=== PATIENT | male | born 1960 | race Caucasian/White ===

== ENCOUNTER 2018-09-01 15:01 | Outpatient (REF) | payer BC, SELFPAY ==
[2018-09-01 21:37] LABS: HCT 45.8 % (40.0-50.0); HGB 15.8 g/dL (13.5-17.5); Mean Corp. HGB Concentration 34.5 g/dL (32.0-36.0); Mean Corpuscular Hemoglobin 34.4 pg (27.0-33.0); Mean Corpuscular Volume 99.8 fL (80-95); Mean Platelet Volume 10.3 fL (8.0-11.0); Platelet Count 265 x1000/uL (130-400); RBC 4.59 m/cumm (4.50-6.00); RBC Distribution Width 12.2 % (11.8-14.1); White Blood Cell Count 7.69 k/cumm (4.4-10.8)
[2018-09-01 21:59] LABS: ALT 52 U/L (12-78); AST 28 U/L (15-37); Albumin 4.1 g/dL (3.4-5.0); Alkaline Phosphatase 104 U/L (46-116); Anion Gap 10.3 mmol/L (3-11); BUN 16 mg/dL (7-18); Bilirubin, Total 0.5 mg/dL (0.2-1.0); CO2 24.7 mmol/L (21.0-32.0); CREATININE 0.97 mg/dL (0.70-1.30); Calcium 9.1 mg/dL (8.5-10.1); Chloride 103 mmol/L (98-107); Cholesterol 206 mg/dL (50-200); Glucose 95 mg/dL (70-100); HDL Cholesterol 38 mg/dL (40-60); LDL CHOLESTEROL 139 mg/dL (<100); Potassium 4.3 mmol/L (3.5-5.1); Sodium 138 mmol/L (136-145); Total Protein 7.4 g/dL (6.4-8.2); Triglyceride 309 mg/dL (30-150)
[2018-09-01 22:13] LABS: Bilirubin, Direct 0.12 mg/dL (0.00-0.20)
[2018-09-06 08:47] LABS: PSA, Screening 0.5 ng/ml (0-4.5)
== END 2018-09-01 15:21 ==
LOC: NCHCN 15:01
PROVIDERS: PCP Internal Medicine; Visit Provider Nurse Practitioner Family
DX: I10 Essential (primary) hypertension (principal); Z00.00 Encounter for general adult medical examination without abnormal findings; Z12.5 Encounter for screening for malignant neoplasm of prostate
CPT/HCPCS: 80048; 80061; 80076; 83721; 84153; 85027

== ENCOUNTER 2018-09-29 08:55 | Outpatient (REF) | payer BC, SELFPAY ==
[2018-09-29 13:17] LABS: Cholesterol 187 mg/dL (50-200); HDL Cholesterol 36 mg/dL (40-60); LDL CHOLESTEROL 122 mg/dL (<100); Triglyceride 177 mg/dL (30-150)
[2018-09-30 10:08] LABS: Hepatitis C Ab w Rflx HCV PCR Negative (NEGAT)
== END 2018-09-29 09:15 ==
LOC: NCHCN 08:55
PROVIDERS: PCP Internal Medicine; Visit Provider Nurse Practitioner Family
DX: Z11.59 Encounter for screening for other viral diseases (principal); E66.9 Obesity, unspecified; Z68.30 Body mass index [BMI] 30.0-30.9, adult
CPT/HCPCS: 80061; 83721; 86803

== ENCOUNTER 2018-10-14 12:42 | Outpatient (REF) | payer BC, SELFPAY ==
[2018-10-14 21:20] LABS: Abs Immature Grans 0.02 k/cumm (0.0-0.09); Absolute Basophil Count 0.03 k/cumm (0.0-0.2); Absolute Eosinophil Count 0.23 k/cumm (0.0-0.7); Absolute Lymphocyte Count 1.29 k/cumm (1.2-3.4); Absolute Monocyte Count 0.69 k/cumm (0.11-0.7); Basophils % 0.4; Eosinophils % 3.2; HCT 48.2 % (40.0-50.0); HGB 16.4 g/dL (13.5-17.5); Immature Grans % 0.3; Lymphocytes % 17.8; Mean Corpuscular Hemoglobin 33.7 pg (27.0-33.0); Mean Corpuscular Volume 99.2 fL (80-95); Mean Platelet Volume 10.4 fL (8.0-11.0); Monocytes % 9.5; Neutrophils % 68.8; Platelet Count 285 x1000/uL (130-400); RBC 4.86 m/cumm (4.50-6.00); RBC Distribution Width 12.1 % (11.8-14.1); White Blood Cell Count 7.26 k/cumm (4.4-10.8)
[2018-10-14 21:35] LABS: ALT 40 U/L (12-78); AST 22 U/L (15-37); Albumin 3.8 g/dL (3.4-5.0); Alkaline Phosphatase 120 U/L (46-116); Anion Gap 13.9 mmol/L (3-11); BUN 14 mg/dL (7-18); Bilirubin, Total 0.9 mg/dL (0.2-1.0); CO2 23.1 mmol/L (21.0-32.0); CREATININE 1.06 mg/dL (0.70-1.30); Calcium 9.1 mg/dL (8.5-10.1); Chloride 99 mmol/L (98-107); Glucose 91 mg/dL (70-100); Potassium 4.5 mmol/L (3.5-5.1); Sodium 136 mmol/L (136-145); Total Protein 7.7 g/dL (6.4-8.2)
== END 2018-10-14 13:02 ==
LOC: NCHCN 12:42
PROVIDERS: PCP Internal Medicine; Visit Provider Nurse Practitioner
DX: R10.32 Left lower quadrant pain (principal)
CPT/HCPCS: 80053; 85025

== ENCOUNTER 2018-10-19 00:37 | Outpatient (CLI) | payer BC, SELFPAY ==
[2018-10-19] MEDS: Breeza Beverage 473 ML BTL PO ×2 (07:44→07:45)
[2018-10-19] MEDS: Omnipaque 350 MG/ML 50 ML BTL PO (07:45)
--- NOTE | 2018-10-19 09:35 | DI.CT_ITS ---
SYMPTOM/DIAGNOSIS: LLQ ABD PAIN, R10.32, ? DIVERTICULITIS ABDOMEN AND PELVIC CT: Comparison is made with 04/25/13. Images were performed from the lung bases through the ischial tuberosities after IV and oral contrast. There is prominent diverticulosis of the descending and sigmoid colon. There is a mild amount of stranding at the junction of the descending and sigmoid, consistent with mild uncomplicated diverticulitis. There is no evidence of abscess or perforation. There is no bowel dilatation. The heart size appears normal. The lung bases are clear. The liver shows fatty infiltration. The gallbladder, spleen, pancreas, kidneys, adrenals and urinary bladder are unremarkable. Prostate appears normal in size. There is a small amount of fat in both inguinal canals. The aorta is normal in diameter. Degenerative changes are seen in the spine. IMPRESSION: Mild uncomplicated diverticulitis at the junction of the descending and sigmoid colon.
[2018-10-19] MEDS: Omnipaque 350 MG/ML 100 ML BTL IJ (09:38)
== END 2018-10-19 00:57 ==
PROVIDERS: PCP Internal Medicine; Visit Provider Nurse Practitioner
DX: R10.32 Left lower quadrant pain (principal); K57.30 Diverticulosis of large intestine without perforation or abscess without bleeding; K57.32 Diverticulitis of large intestine without perforation or abscess without bleeding
CPT/HCPCS: 74177; J3490; Q9967

== ENCOUNTER 2018-12-18 12:50 | Inpatient (IN) | payer BC, SELFPAY ==
[2018-12-18] VITALS (7 sets, daily range): BP systolic 129–153; BP diastolic 78–91; PULSE 100–109; RESP 14–18; TEMP 36.4–37.1; O2SAT 93–97
--- NOTE | 2018-12-18 13:12 | W.ED.GENAD ---
Discharge Plan Disposition Condition: Improving Discharge Details Chief Complaint: Abd Prob Reason For Visit: DIVERTICULITIS WITH MICROPERFORATION Admit Date/Time: 12/18/18 14:36 Admit Provider: Brenda Perez Attending Provider: Brenda Perez Primary Care Provider: [facility] ED Provider: Stiven Lin Discharge Instructions Activity:: no lifting over 10#'s Equipment/Supplies:: No Equipment Needed Diet:: low fiber Discharge Orders Discharge Orders: Discharge Order (Routine); Ordered 12/26/18 Ordered By: Tete Lira Discharge Data Discharge Date/Time-TO BE ENTERED AT DEPARTURE: 12/18/18 15:45 Medical Decision Making 13:15 --58-year-old male with history of diverticulitis here with severe diffuse abdominal pain and tenderness with rebound tenderness after onset of left lower quadrant abdominal pain earlier today. Patient notes symptoms are similar to flare of diverticulitis in the past. Concern for acute surgical process. Consider acute diverticulitis and perforation. Plan to CT abd/pelv. -- CT interpreted by radiology: IMPRESSION: 1. Focal perforation: 2 collections of air anterior to the inflamed diverticula (4:67-68). 2. Diverticulosis and Bowel wall thickening along the rectosigmoid colon. Moderate pericolonic inflammatory changes. No evidence of abscess formation or bleeding. Findings consistent with acute diverticulitis. Will give IV abx. Labs reviewed. I called and spoke with Dr. Perez who will admit the patient. HPI General Mode of arrival: ambulatory. Date/Time Provider Initiated Documentation: 12/18/18 12:50. Limitations to Documentation: no limitations. Information obtained by: patient. HPI Narrative: 58-year-old male with history of diverticulitis presents with chief complaint of abdominal pain. Patient notes pain started this morning. Pain is now severe. Pain started in his left lower quadrant is now progressed to involve his entire abdomen. Pain is worse on palpation of his abdomen. He has associated nausea. No vomiting. He had a normal bowel movement this morning. No fevers. Related Data Home Medications Medication Instructions Recorded Confirmed Combivent 2 puff TID 04/25/13 12/18/18 [id number]-aejocajbrbclu-eesjlrfe 1 tab PRN PRN 04/25/13 08/12/13 [Migraine Formula] Flovent HFA 1 puff BID 08/12/13 12/18/18 lisinopril 10 mg PO DAILY 12/08/16 12/18/18 meloxicam 15 mg PO DAILY #30 MDD 1 12/09/16 12/18/18 tizanidine 2 mg PO .QHS PRN PRN #30 capsule 12/09/16 12/18/18 tizanidine [Zanaflex] 2 mg PO HS #30 12/09/16 12/18/18 atorvastatin 10 mg PO HS 12/18/18 12/18/18 amoxicillin-pot clavulanate 1 tab PO BID 5 Days #10 tab 12/26/18 [Augmentin] dicyclomine 20 mg PO QID PRN #30 tab 12/26/18 hydrocodone-acetaminophen 1 tab PO Q4H PRN PRN #15 tab 12/26/18 Previous Rx's Medication Instructions Recorded tizanidine 2 mg PO .QHS PRN PRN #30 capsule 12/09/16 amoxicillin-pot clavulanate 1 tab PO BID 5 Days #10 tab 12/26/18 [Augmentin] dicyclomine 20 mg PO QID PRN #30 tab 12/26/18 hydrocodone-acetaminophen 1 tab PO Q4H PRN PRN #15 tab 12/26/18 Allergies Allergy/AdvReac Type Severity Reaction Status Date / Time sulfabenzamide Allergy Intermediate Hives Unverified 12/18/18 12:53 Sulfa (Sulfonamide Allergy Unknown Unverified 12/18/18 12:53 Antibiotics) General Stated Complaint: Abd Prob ROCIO: 3 Review of Systems Review of Systems All systems reviewed & are unremarkable except as noted in HPI and below Gastrointestinal Reports nausea and Denies vomiting Genitourinary Denies dysuria [facility] Medical History Diverticulitis of large intestine with perforation (Acute) Diverticulosis (Chronic) Asthma Back pain COPD (chronic obstructive pulmonary disease) GERD (gastroesophageal reflux disease) Hypertension Migraine Migraine, chronic, without aura Obesity Polyp of colon 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 Exam Const General: cooperative and uncomfortable Nutritional Appearance: well nourished Orientation: alert HENMO Head: normocephalic Mouth: moist mucous membranes Eyes Conjunctivae: normal conjunctivae Sclera: normal sclerae Neck Neck: trachea midline and supple Resp Auscultation: clear to auscultation bilaterally, no rales, no rhonchi and no wheezes Cardio Jugular venous pressure: no JVD Rate: regular rate and not tachycardic Rhythm: regular rhythm GI Palpation: soft, not firm, no guarding, no masses, not rigid and tender with rebound tenderness and other (diffuse) Auscultation: normal bowel sounds Skin General skin exam: no rashes or lesions noted Neuro General: alert, awake and tone normal Extrem General: no edema Psych Appearance: grossly normal Mental Status: mental status grossly normal Speech and Movement: speech and movement normal Course Vital Signs Temperature 36.4 C L 12/18/18 12:53 Pulse 109 H 12/18/18 12:53 Respiratory Rate 18 12/18/18 12:53 Blood Pressure 141/78 H 12/18/18 12:53 Pulse Oximetry 97 12/18/18 12:53 Temperature 36.4 C L 12/18/18 12:53 Temperature Source Temporal Artery Scan 12/18/18 12:53 Pulse 109 H 12/18/18 12:53 Respiratory Rate 18 12/18/18 12:53 Respiratory Effort 12/18/18 12:53 Blood Pressure 141/78 H 12/18/18 12:53 Blood Pressure Position Sitting 12/18/18 12:53 Pulse Oximetry 97 12/18/18 12:53 Oxygen Delivery Method Room Air 12/18/18 12:53 Oxygen Flow Rate 0 12/18/18 12:53
--- NOTE | 2018-12-18 13:18 | ED.GENADUL_ITS ---
Discharge Plan Disposition Condition: Improving Discharge Details Chief Complaint: Abd Prob Reason For Visit: DIVERTICULITIS WITH MICROPERFORATION Admit Date/Time: 12/18/18 14:36 Admit Provider: Brenda Perez Attending Provider: Brenda Perez Primary Care Provider: [facility] ED Provider: Stiven Lin Discharge Instructions Activity:: no lifting over 10#'s Equipment/Supplies:: No Equipment Needed Diet:: low fiber Discharge Orders Discharge Orders: Discharge Order (Routine); Ordered 12/26/18 Ordered By: Tete Lira Discharge Data Discharge Date/Time-TO BE ENTERED AT DEPARTURE: 12/18/18 15:45 Medical Decision Making 13:15 --58-year-old male with history of diverticulitis here with severe diffuse abdominal pain and tenderness with rebound tenderness after onset of left lower quadrant abdominal pain earlier today. Patient notes symptoms are similar to flare of diverticulitis in the past. Concern for acute surgical process. Consider acute diverticulitis and perforation. Plan to CT abd/pelv. -- CT interpreted by radiology: IMPRESSION: 1. Focal perforation: 2 collections of air anterior to the inflamed diverticula (4:67-68). 2. Diverticulosis and Bowel wall thickening along the rectosigmoid colon. Moderate pericolonic inflammatory changes. No evidence of abscess formation or bleeding. Findings consistent with acute diverticulitis. Will give IV abx. Labs reviewed. I called and spoke with Dr. Perez who will admit the patient. HPI General Mode of arrival: ambulatory . Date/Time Provider Initiated Documentation: 12/18/18 12:50 . Limitations to Documentation: no limitations . Information obtained by: patient . HPI Narrative: 58-year-old male with history of diverticulitis presents with chief complaint of abdominal pain. Patient notes pain started this morning. Pain is now severe. Pain started in his left lower quadrant is now progressed to involve his entire abdomen. Pain is worse on palpation of his abdomen. He has associated nausea. No vomiting. He had a normal bowel movement this morning. No fevers. Related Data Home Medications Medication Instructions Recorded Confirmed Combivent 2 puff TID 04/25/13 12/18/18 [id number]-dbvyxibhkiclh-lnhnwedl 1 tab PRN PRN 04/25/13 08/12/13 [Migraine Formula] Flovent HFA 1 puff BID 08/12/13 12/18/18 lisinopril 10 mg PO DAILY 12/08/16 12/18/18 meloxicam 15 mg PO DAILY #30 MDD 1 12/09/16 12/18/18 tizanidine 2 mg PO .QHS PRN PRN #30 capsule 12/09/16 12/18/18 tizanidine [Zanaflex] 2 mg PO HS #30 12/09/16 12/18/18 atorvastatin 10 mg PO HS 12/18/18 12/18/18 amoxicillin-pot clavulanate 1 tab PO BID 5 Days #10 tab 12/26/18 [Augmentin] dicyclomine 20 mg PO QID PRN #30 tab 12/26/18 hydrocodone-acetaminophen 1 tab PO Q4H PRN PRN #15 tab 12/26/18 Previous Rx's Medication Instructions Recorded tizanidine 2 mg PO .QHS PRN PRN #30 capsule 12/09/16 amoxicillin-pot clavulanate 1 tab PO BID 5 Days #10 tab 12/26/18 [Augmentin] dicyclomine 20 mg PO QID PRN #30 tab 12/26/18 hydrocodone-acetaminophen 1 tab PO Q4H PRN PRN #15 tab 12/26/18 Allergies Allergy/AdvReac Type Severity Reaction Status Date / Time sulfabenzamide Allergy Intermediate Hives Unverified 12/18/18 12:53 Sulfa (Sulfonamide Allergy Unknown Unverified 12/18/18 12:53 Antibiotics) General Stated Complaint: Abd Prob ROCIO: 3 Review of Systems Review of Systems All systems reviewed & are unremarkable except as noted in HPI and below Gastrointestinal Reports nausea and Denies vomiting Genitourinary Denies dysuria [facility] History Diverticulitis of large intestine with perforation (Acute) Diverticulosis (Chronic) Asthma Back pain COPD (chronic obstructive pulmonary disease) GERD (gastroesophageal reflux disease) Hypertension Migraine Migraine, chronic, without aura Obesity Polyp of colon 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 Exam Const General: cooperative and uncomfortable Nutritional Appearance: well nourished Orientation: alert HENTX Head: normocephalic Mouth: moist mucous membranes Eyes Conjunctivae: normal conjunctivae Sclera: normal sclerae Neck Neck: trachea midline and supple Resp Auscultation: clear to auscultation bilaterally, no rales, no rhonchi and no wheezes Cardio Jugular venous pressure: no JVD Rate: regular rate and not tachycardic Rhythm: regular rhythm GI Palpation: soft, not firm, no guarding, no masses, not rigid and tender with rebound tenderness and other (diffuse) Auscultation: normal bowel sounds Skin General skin exam: no rashes or lesions noted Neuro General: alert, awake and tone normal Extrem General: no edema Psych Appearance: grossly normal Mental Status: mental status grossly normal Speech and Movement: speech and movement normal Course Vital Signs Temperature 36.4 C L 12/18/18 12:53 Pulse 109 H 12/18/18 12:53 Respiratory Rate 18 12/18/18 12:53 Blood Pressure 141/78 H 12/18/18 12:53 Pulse Oximetry 97 12/18/18 12:53 Temperature 36.4 C L 12/18/18 12:53 Temperature Source Temporal Artery Scan 12/18/18 12:53 Pulse 109 H 12/18/18 12:53 Respiratory Rate 18 12/18/18 12:53 Respiratory Effort 12/18/18 12:53 Blood Pressure 141/78 H 12/18/18 12:53 Blood Pressure Position Sitting 12/18/18 12:53 Pulse Oximetry 97 12/18/18 12:53 Oxygen Delivery Method Room Air 12/18/18 12:53 Oxygen Flow Rate 0 12/18/18 12:53
[2018-12-18 13:27] LABS: Lipase 91 U/L (73-393)
[2018-12-18] MEDS: HYDROmorphone 2 MG/ML VIAL 1 MG IVP (13:28)
[2018-12-18] MEDS: Lactated Ringers 1,000 ML 150 ML IV (13:28)
[2018-12-18 13:34] LABS: ALT 50 U/L (12-78); AST 26 U/L (15-37); Albumin 4.4 g/dL (3.4-5.0); Alkaline Phosphatase 123 U/L (46-116); Anion Gap 11.3 mmol/L (3-11); BUN 15 mg/dL (7-18); Bilirubin, Total 0.9 mg/dL (0.2-1.0); CO2 23.7 mmol/L (21.0-32.0); Calcium 9.1 mg/dL (8.5-10.1); Chloride 101 mmol/L (98-107); Glucose 117 mg/dL (70-100); Potassium 4.1 mmol/L (3.5-5.1); Sodium 136 mmol/L (136-145)
[2018-12-18 13:35] LABS: Abs Immature Grans 0.04 k/cumm (0.0-0.09); Absolute Basophil Count 0.02 k/cumm (0.0-0.2); Absolute Eosinophil Count 0.17 k/cumm (0.0-0.7); Absolute Lymphocyte Count 1.17 k/cumm (1.2-3.4); Basophils % 0.1; Eosinophils % 0.9; HCT 47.8 % (40.0-50.0); HGB 17.1 g/dL (13.5-17.5); Immature Grans % 0.2; Lymphocytes % 6.3; Mean Corp. HGB Concentration 35.8 g/dL (32.0-36.0); Mean Corpuscular Hemoglobin 35.1 pg (27.0-33.0); Mean Corpuscular Volume 98.2 fL (80-95); Monocytes % 6.3; Neutrophils % 86.2; Platelet Count 280 x1000/uL (130-400); RBC 4.87 m/cumm (4.50-6.00); RBC Distribution Width 12.4 % (11.8-14.1); White Blood Cell Count 18.56 k/cumm (4.4-10.8)
[2018-12-18 13:36] LABS: Absolute Monocyte Count 1.17 k/cumm (0.11-0.7)
[2018-12-18 13:37] LABS: Lactate 1.9 mmol/L (0.6-1.4)
[2018-12-18 13:39] LABS: Magnesium 2.1 mg/dL (1.8-2.4)
[2018-12-18] MEDS: Omnipaque 350 MG/ML 100 ML BTL IJ (13:44)
--- NOTE | 2018-12-18 13:48 | DI.CT_ITS ---
SYMPTOM/DIAGNOSIS: ABD PAIN, LLQ TO NOW DIFFUSE, REBOUND TENDERNESS ABDOMEN AND PELVIC CT: CT scan of the abdomen and pelvis was performed following the uneventful administration of intravenous contrast material. Comparison is made with 10/19/18. There are dependent opacities in the lung bases. This may represent atelectasis or pneumonia. There is diffuse decreased attenuation of the liver consistent with fatty infiltration. No suspicious hepatic mass is seen. The portal, superior mesenteric and splenic veins are patent. The gallbladder is negative. There is no biliary ductal dilation. The pancreas, spleen and adrenal glands are unremarkable. The kidneys show normal and symmetric enhancement. No evidence of a solid renal mass or obstruction. The urinary bladder is within normal limits. The reproductive organs are unremarkable. There is mild atherosclerosis of the abdominal aorta but no evidence of aneurysmal dilatation. No significant abdominal or pelvic adenopathy or ascites is present. There is diverticulosis of the colon. There is bowel wall thickening and pericolonic inflammatory change in the proximal sigmoid colon consistent with acute diverticulitis. There do appear to be foci of extraluminal air adjacent to the inflamed bowel consistent with perforation. The remainder of the bowel is unremarkable. There is a normal appendix present. No acute osseous abnormality is identified. Degenerative changes are seen in the spine. IMPRESSION: Findings consistent with acute diverticulitis involving the sigmoid colon. Foci of extraluminal air consistent with perforation. No evidence of abscess.
[2018-12-18] MEDS: MetroNIDAZOLE 500 MG/100 ML BAG 100 MG IVPB ×2 (14:14→22:59)
--- NOTE | 2018-12-18 14:14 | DI.VRAD_ITS ---
Addendum created by Kelsi Enriquez MD on 12/18/2018 2:14:36 PM EDT THIS REPORT CONTAINS FINDINGS THAT MAY BE CRITICAL TO PATIENT CARE. The findings were verbally communicated via telephone conference with Stiven Lin at 2:14 PM EDT on 12/18/2018. The findings were acknowledged and understood. Initial report created on 12/18/2018 2:14:05 PM EDT EXAM: CT Abdomen and Pelvis With Contrast EXAM DATE/TIME: 12/18/2018 1:14 PM CLINICAL HISTORY: 58 years old, male; Signs and symptoms; Other: Abdominal pain llq to now diffuse, rebound tender TECHNIQUE: Axial computed tomography images of the abdomen and pelvis with intravenous contrast. All CT scans at this facility use at least one of these dose optimization techniques: automated exposure control; mA and/or kV adjustment per patient size (includes targeted exams where dose is matched to clinical indication); or iterative reconstruction. Coronal and sagittal reformatted images were created and reviewed. CONTRAST: Contrast Material: 100 ml of Omnipaque 350; Contrast Route: IV COMPARISON: CT Abdomen^ROUTINE ABDOMEN PELVIS WITH CONTRAST (Adult) 10/19/2018 9:14 AM FINDINGS: Lower thorax: Mild opacities in the lower lobes may represent atelectasis or pneumonia. Small hiatal hernia ABDOMEN: Liver: Normal. No mass. Gallbladder and bile ducts: Normal. No calcified stones. No ductal dilation. Pancreas: Normal. No ductal dilation. Spleen: Normal. No splenomegaly. Adrenals: Normal. No mass. Kidneys and ureters: Normal. No hydronephrosis. Stomach and bowel: Focal perforation: 2 collections of air anterior to the inflamed diverticula (4:67-68). Diverticulosis and Bowel wall thickening along the rectosigmoid colon. Moderate pericolonic inflammatory changes. No evidence of abscess formation or bleeding. Findings consistent with acute diverticulitis. Appendix: Normal appendix PELVIS: Bladder: Unremarkable as visualized. Reproductive: Unremarkable as visualized. ABDOMEN and PELVIS: Intraperitoneal space: Normal. No free air. No significant fluid collection. Bones/joints: No acute fracture. No dislocation. Soft tissues: Unremarkable. Vasculature: Normal. No abdominal aortic aneurysm. Lymph nodes: Normal. No enlarged lymph nodes. IMPRESSION: 1. Focal perforation: 2 collections of air anterior to the inflamed diverticula (4:67-68). 2. Diverticulosis and Bowel wall thickening along the rectosigmoid colon. Moderate pericolonic inflammatory changes. No evidence of abscess formation or bleeding. Findings consistent with acute diverticulitis. Dictated and Authenticated by: Kelsi Enriquez MD. Ordering:SHELLIE Saleem MD
--- NOTE | 2018-12-18 14:47 | W.PM.HP.N ---
Date of service: 12/18/18 Time of Service: 14:47 Assessment and Plan (1) Hypertension: Current visit: Yes Status: Chronic A\\ Well controlled at Home Hypertensive here today most likely due to pain P\\ Continue with po home medication with sip of water Control pain Qualifiers: Hypertension type: essential hypertension Qualified Code(s): I10 - Essential (primary) hypertension (2) Diverticulitis of large intestine with perforation: Current visit: Yes Status: Acute A\\ Diverticulitis of sigmoid colon with microperforation P\\ Bowel rest and antibiotics Discussed diagnoses with patient as well as small chance that non-surgical treatment may not work. If his pain worsens, WBC count increases or he develops fevers,chills and N/V then he may need emergency surgery with sigmoid collectomy and ostomy. Questions were entertained and answered to his satisfaction. He agrees with the plan. Qualifiers: Diverticulitis bleeding: without bleeding Qualified Code(s): K57.20 - Diverticulitis of large intestine with perforation and abscess without bleeding (3) Asthma: Current visit: No Status: Active A\\ Well controlled he has 3 inhalors at home but only uses them PRN P\\ Will order albuterol prn. If he needs anything else we will start him back on his home inhalers. History of Present Illness Chief Complaint: LLQ Abdominal pain Consults Consult date: 12/18/18 Requesting physician: Stiven Lin Narrative: Mr. Gamboa is a pleasant 58 year old male with a history of Diverticulitis. His last attack was about 3 months ago and he was treated as an outpatient. He comes in today because of acute worsening of LLQ abdominal pain. He tells me that he started noticing some mild LLQ pain around thursday of last week. He did not see his PCP. Today he was sitting on the toilet having a normal BM when his pain acutely got worse and would not subside so he came to the ER. pain on arrival was 10/10. He was given some dilauded and his pain came down to a 5/10. Labs work revealed a slightly elevated Lactate and an elevated WBC count. CT scan abdomen and pelvis revealed diverticulitis with microperforation. No abscess was identified. Patient denies any fevers or chills. He denies any chest pain. Review of Systems Constitutional Reports system reviewed and no additional complaints, except as docu Cardiovascular Reports system reviewed and no additional complaints, except as docu, Denies dyspnea and Denies dyspnea on exertion Respiratory Denies chest congestion, Denies cough, Denies dyspnea and Denies dyspnea on exertion Gastrointestinal Reports as per HPI Genitourinary Denies hematuria, Denies dysuria and Denies nocturia Musculoskeletal Reports back pain and Denies arthralgias Endocrine Denies cold intolerance, Denies heat intolerance and Denies polydipsia Hematologic/Lymphatic Denies easy bleeding and Denies easy bruising [facility] Medical History Diverticulitis of large intestine with perforation (Acute) Diverticulosis (Chronic) Asthma Back pain COPD (chronic obstructive pulmonary disease) GERD (gastroesophageal reflux disease) Hypertension Migraine Migraine, chronic, without aura Obesity Polyp of colon 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 Meds Home Medications Medication Instructions Recorded Confirmed Type Combivent 2 puff TID 04/25/13 12/18/18 History bnbizcc-wwmuwfsxdopzb-kxgdwujv 1 tab PRN PRN 04/25/13 08/12/13 History [Migraine Formula] ibuprofen 800 mg PRN PRN 04/25/13 12/18/18 History Flovent HFA 1 puff BID 08/12/13 12/18/18 History lisinopril 10 mg PO DAILY 12/08/16 12/18/18 History meloxicam 15 mg PO DAILY #30 MDD 1 12/09/16 12/18/18 History meloxicam 15 mg PO DAILY PRN #30 tablet 12/09/16 Rx tizanidine 2 mg PO .QHS PRN PRN #30 capsule 12/09/16 12/18/18 Rx tizanidine [Zanaflex] 2 mg PO HS #30 12/09/16 12/18/18 History Allergies Allergy/AdvReac Type Severity Reaction Status Date / Time sulfabenzamide Allergy Intermediate Hives Unverified 12/18/18 12:53 Sulfa (Sulfonamide Allergy Unknown Unverified 12/18/18 12:53 Antibiotics) Exam Const General: cooperative, healthy appearing, comfortable and no acute distress Orientation: alert and oriented x3 [facility] Head: normocephalic and atraumatic Resp Effort & Inspection: normal respiratory effort Auscultation: clear to auscultation bilaterally Cardio Rate: regular rate Rhythm: regular rhythm Heart Sounds: no gallops, no murmurs and no rubs GI Inspection: normal to inspection Palpation: soft, no hepatosplenomegaly and tender in the LLQ (Guarding, no rebound) and suprapubicly (guarding, no rebound) Auscultation: normal bowel sounds Rectal Exam: deferred Results Labs : 12/18/18 13:10 12/18/18 13:10 Laboratory Results - last 24 hr 12/18/18 12/18/18 12/18/18 13:10 13:10 13:10 WBC 18.56 H RBC 4.87 Hgb 17.1 Hct 47.8 MCV 98.2 H MCH 35.1 H MCHC 35.8 RDW 12.4 Plt Count 280 MPV 10.0 Immature Gran % 0.2 Neutrophils % 86.2 Lymphocytes % 6.3 Monocytes % 6.3 Eosinophils % 0.9 Basophils % 0.1 Absolute Neutrophils 16.00 H Absolute Lymphocytes 1.17 L Absolute Monocytes 1.17 H Absolute Eosinophils 0.17 Absolute Basophils 0.02 Sodium 136 Potassium 4.1 Chloride 101 Carbon Dioxide 23.7 Anion Gap 11.3 H BUN 15 Creatinine 1.00 Estimated GFR/1.73 m2 >= 60.00 Glucose 117 H Lactate Calcium 9.1 Magnesium Total Bilirubin 0.9 AST 26 ALT 50 Alkaline Phosphatase 123 H Total Protein 8.0 Albumin 4.4 Lipase 91 12/18/18 12/18/18 13:10 13:33 WBC RBC Hgb Hct MCV MCH MCHC RDW Plt Count MPV Immature Gran % Neutrophils % Lymphocytes % Monocytes % Eosinophils % Basophils % Absolute Neutrophils Absolute Lymphocytes Absolute Monocytes Absolute Eosinophils Absolute Basophils Sodium Potassium Chloride Carbon Dioxide Anion Gap BUN Creatinine Estimated GFR/1.73 m2 Glucose Lactate 1.9 H Calcium Magnesium 2.1 Total Bilirubin AST ALT Alkaline Phosphatase Total Protein Albumin Lipase Last Vital Signs Temp 97.5 F L 12/18/18 12:53 Pulse 109 H 12/18/18 12:53 Resp 18 12/18/18 12:53 BP 141/78 H 12/18/18 12:53 Pulse Ox 97 12/18/18 12:53
[2018-12-18] MEDS: CIPROFLOXACIN 400 MG/200 ML BAG 200 MG IVPB (15:00)
[2018-12-18] MEDS: DEXTROSE 5%-0.45% SALINE 1,000 ML 125 ML IV (16:43)
[2018-12-18 17:10] LABS: Bilirubin Negative (Negative); Blood Negative (Negative); Clarity Clear; Glucose Negative (Negative); Ketones 40 mg/dL (Negative); Leukocyte Esterase Negative (Negative); Nitrite Negative (Negative); Specific Gravity <= 1.005 (1.005-1.025); Urobilinogen 0.2 EU/dL (Up TO 0.2); pH 5.5 (5-8)
[2018-12-18] MEDS: Enoxaparin 40 MG/0.4 ML SYR SC (17:11)
[2018-12-18] MEDS: Ketorolac 15 MG/ML VIAL IVP (17:11)
[2018-12-18] MEDS: HYDROmorphone 2 MG/ML VIAL IVP ×2 (18:18→22:25)
[2018-12-18] MEDS: ACETAMINOPHEN 1,000 MG/100 ML BTL 400 MG IVPB (22:25)
[2018-12-19] VITALS (8 sets, daily range): BP systolic 117–151; BP diastolic 76–90; PULSE 85–98; RESP 14–20; TEMP 36.4–37.2; O2SAT 94–96
[2018-12-19] MEDS: DEXTROSE 5%-0.45% SALINE 1,000 ML 125 ML IV ×3 (01:09→19:26)
[2018-12-19] MEDS: CIPROFLOXACIN 400 MG/200 ML BAG 200 MG IVPB ×2 (01:48→13:23)
[2018-12-19] MEDS: Ketorolac 15 MG/ML VIAL IVP ×2 (04:58→13:26)
[2018-12-19] MEDS: MetroNIDAZOLE 500 MG/100 ML BAG 100 MG IVPB ×3 (06:00→21:49)
[2018-12-19 06:16] LABS: Anion Gap 10.6 mmol/L (3-11); BUN 14 mg/dL (7-18); CO2 23.4 mmol/L (21.0-32.0); CREATININE 0.98 mg/dL (0.70-1.30); Calcium 8.5 mg/dL (8.5-10.1); Chloride 100 mmol/L (98-107); Glucose 170 mg/dL (70-100); Potassium 3.7 mmol/L (3.5-5.1); Sodium 134 mmol/L (136-145)
[2018-12-19 06:28] LABS: Abs Immature Grans 0.04 k/cumm (0.0-0.09); Absolute Lymphocyte Count 0.54 k/cumm (1.2-3.4); Absolute Monocyte Count 0.53 k/cumm (0.11-0.7); Basophils % 0.1; Eosinophils % 0.1; HCT 40.5 % (40.0-50.0); Immature Grans % 0.2; Lymphocytes % 3.1; Mean Corp. HGB Concentration 34.6 g/dL (32.0-36.0); Mean Corpuscular Hemoglobin 34.7 pg (27.0-33.0); Mean Corpuscular Volume 100.5 fL (80-95); Mean Platelet Volume 9.7 fL (8.0-11.0); Neutrophils % 93.5; Platelet Count 193 x1000/uL (130-400); RBC 4.03 m/cumm (4.50-6.00); RBC Distribution Width 12.7 % (11.8-14.1); White Blood Cell Count 17.54 k/cumm (4.4-10.8)
[2018-12-19 06:29] LABS: Absolute Basophil Count 0.02 k/cumm (0.0-0.2); Absolute Eosinophil Count 0.02 k/cumm (0.0-0.7)
[2018-12-19] MEDS: Lisinopril 10 MG TAB PO (08:47)
[2018-12-19] MEDS: Pantoprazole 40 MG VIAL IVP (08:48)
[2018-12-19] MEDS: ACETAMINOPHEN 1,000 MG/100 ML BTL 400 MG IVPB ×2 (08:48→16:38)
[2018-12-19] MEDS: Normal Saline Flush 10 ML SYR IVP ×2 (08:48→13:27)
[2018-12-19] MEDS: HYDROmorphone 2 MG/ML VIAL IVP ×2 (08:48→17:57)
--- NOTE | 2018-12-19 09:01 | DI.RAD_ITS ---
SYMPTOM/DIAGNOSIS: ABD PAIN ACUTE ABDOMINAL SERIES: Comparison CT is 12/18/18. PA CHEST: Heart size and pulmonary vasculature are within normal limits. The lungs are clear and well expanded. No effusions or pneumothoraces are identified. The osseous structures are intact. IMPRESSION: No acute pulmonary process. FLAT AND UPRIGHT ABDOMEN: The bowel gas pattern is nonspecific. No evidence of obstruction. No pneumoperitoneum, organomegaly or bowel obstruction is seen. Degenerative changes are seen in the spine. IMPRESSION: No evidence of an acute abdomen. No free air is seen beneath the hemidiaphragms.
--- NOTE | 2018-12-19 09:18 | PGE_ITS ---
Date of Service Date of service: 12/19/18 Time of Service: 09:18 Assessment and Plan (1) Diverticulitis of large intestine with perforation: Current visit: Yes Status: Acute A\\ Development of Nausea and dry heaves XRAY- no free air WBC count slightly decreased- no bands P\\ Continue with supportive care Monitor closely Zofran for nausea Qualifiers: Diverticulitis bleeding: without bleeding Qualified Code(s): K57.20 - Diverticulitis of large intestine with perforation and abscess without bleeding Subjective Interval history since last seen: Had some dry heaves and nausea starting last night. Pain is about the same. Not passing any flatus. Pain is controlled on medications, Exam Resp Effort & Inspection: normal respiratory effort Auscultation: clear to auscultation bilaterally Cardio Rate: regular rate Rhythm: regular rhythm Heart Sounds: no gallops, no murmurs and no rubs GI Inspection: normal to inspection Palpation: soft, no hepatosplenomegaly and tender in the LLQ (tender to palpation and volunatry guarding. No rebound) and suprapubicly (vountairy gurading, no rebound) Auscultation: absent bowel sounds Objective Objective Clinical Data: Abnormal lab results 12/18/18 12/18/18 12/18/18 Range/Units 13:10 13:10 13:33 WBC 18.56 H (4.4-10.8) k/cumm RBC (4.50-6.00) m/cumm MCV 98.2 H (80-95) fL MCH 35.1 H (27.0-33.0) pg Absolute Neutrophils 16.00 H (1.2-6.7) k/cumm Absolute Lymphocytes 1.17 L (1.2-3.4) k/cumm Absolute Monocytes 1.17 H (0.11-0.7) k/cumm Sodium (136-145) mmol/L Anion Gap 11.3 H (3-11) mmol/L Glucose 117 H (70-100) mg/dL Lactate 1.9 H (0.6-1.4) mmol/L Alkaline Phosphatase 123 H (46-116) U/L Urine Ketones (Negative) mg/dL 12/18/18 12/19/18 12/19/18 Range/Units 16:45 05:53 05:53 WBC 17.54 H (4.4-10.8) k/cumm RBC 4.03 L (4.50-6.00) m/cumm MCV 100.5 H (80-95) fL MCH 34.7 H (27.0-33.0) pg Absolute Neutrophils 16.40 H (1.2-6.7) k/cumm Absolute Lymphocytes 0.54 L (1.2-3.4) k/cumm Absolute Monocytes (0.11-0.7) k/cumm Sodium 134 L (136-145) mmol/L Anion Gap (3-11) mmol/L Glucose 170 H (70-100) mg/dL Lactate (0.6-1.4) mmol/L Alkaline Phosphatase (46-116) U/L Urine Ketones 40 H (Negative) mg/dL Vital Signs Temperature 98.6 F 12/19/18 08:39 Temperature Source Tympanic 12/19/18 08:39 Pulse 95 H 12/19/18 08:39 Pulse Rhythm Regular 12/19/18 03:08 Respiratory Rate 20 12/19/18 08:39 Respiratory Effort Non-Labored 12/19/18 03:08 Respiratory Depth Normal 12/19/18 03:08 Respiratory Pattern Normal 12/19/18 03:08 Blood Pressure 151/90 H 12/19/18 08:39 Blood Pressure Position Sitting 12/18/18 12:53 Pulse Oximetry 94 L 12/19/18 08:42 Oxygen Delivery Method Room Air 12/19/18 08:42 Oxygen Flow Rate 0 12/19/18 08:42 Pain Level 7 12/19/18 08:48 Intake & Output 12/18/18 12/18/18 12/19/18 11:59 23:59 11:59 Intake Total 661.25 / 661.25 1218.75 / 1218.75 Output Total 300 / 300 Balance 361.25 / 361.25 1218.75 / 1218.75 Weight 199 lb 15.983 oz 202 lb 2.622 oz Intake: IV 661.25 / 661.25 1218.75 / 1218.75 Output: Urine 300 / 300 Other: Urine Color Light Sharon Urine Appearance Clear Clear Urine Odor None Comment voided in toilet, flushed Voiding Methods Toilet Laboratory Results WBC 17.54 k/cumm (4.4-10.8) H 12/19/18 05:53 RBC 4.03 m/cumm (4.50-6.00) L 12/19/18 05:53 Hgb 14.0 g/dL (13.5-17.5) D 12/19/18 05:53 Hct 40.5 % (40.0-50.0) 12/19/18 05:53 MCV 100.5 fL (80-95) H 12/19/18 05:53 MCH 34.7 pg (27.0-33.0) H 12/19/18 05:53 MCHC 34.6 g/dL (32.0-36.0) 12/19/18 05:53 RDW 12.7 % (11.8-14.1) 12/19/18 05:53 Plt Count 193 x1000/uL (130-400) 12/19/18 05:53 MPV 9.7 fL (8.0-11.0) 12/19/18 05:53 Immature Gran % 0.2 12/19/18 05:53 Neutrophils % 93.5 12/19/18 05:53 Lymphocytes % 3.1 12/19/18 05:53 Monocytes % 3.0 12/19/18 05:53 Eosinophils % 0.1 12/19/18 05:53 Basophils % 0.1 12/19/18 05:53 Absolute Neutrophils 16.40 k/cumm (1.2-6.7) H 12/19/18 05:53 Absolute Lymphocytes 0.54 k/cumm (1.2-3.4) L 12/19/18 05:53 Absolute Monocytes 0.53 k/cumm (0.11-0.7) 12/19/18 05:53 Absolute Eosinophils 0.02 k/cumm (0.0-0.7) 12/19/18 05:53 Absolute Basophils 0.02 k/cumm (0.0-0.2) 12/19/18 05:53 Sodium 134 mmol/L (136-145) L 12/19/18 05:53 Potassium 3.7 mmol/L (3.5-5.1) 12/19/18 05:53 Chloride 100 mmol/L (98-107) 12/19/18 05:53 Carbon Dioxide 23.4 mmol/L (21.0-32.0) 12/19/18 05:53 Anion Gap 10.6 mmol/L (3-11) 12/19/18 05:53 BUN 14 mg/dL (7-18) 12/19/18 05:53 Creatinine 0.98 mg/dL (0.70-1.30) 12/19/18 05:53 Estimated GFR/1.73 m2 >= 60.00 (mL/min/1.73m2) 12/19/18 05:53 Glucose 170 mg/dL (70-100) H 12/19/18 05:53 Lactate 1.9 mmol/L (0.6-1.4) H 12/18/18 13:33 Calcium 8.5 mg/dL (8.5-10.1) 12/19/18 05:53 Magnesium 2.1 mg/dL (1.8-2.4) 12/18/18 13:10 Total Bilirubin 0.9 mg/dL (0.2-1.0) 12/18/18 13:10 AST 26 U/L (15-37) 12/18/18 13:10 ALT 50 U/L (12-78) 12/18/18 13:10 Alkaline Phosphatase 123 U/L (46-116) H 12/18/18 13:10 Total Protein 8.0 g/dL (6.4-8.2) 12/18/18 13:10 Albumin 4.4 g/dL (3.4-5.0) 12/18/18 13:10 Lipase 91 U/L (73-393) 12/18/18 13:10 Urine Color Yellow (Yellow) 12/18/18 16:45 Urine Clarity Clear 12/18/18 16:45 Urine pH 5.5 (5-8) 12/18/18 16:45 Ur Specific [place] <= 1.005 (1.005-1.025) 12/18/18 16:45 Urine Protein Negative mg/dL (Negative) 12/18/18 16:45 Urine Ketones 40 mg/dL (Negative) H 12/18/18 16:45 Urine Blood Negative (Negative) 12/18/18 16:45 Urine Nitrite Negative (Negative) 12/18/18 16:45 Urine Bilirubin Negative (Negative) 12/18/18 16:45 Urine Urobilinogen 0.2 EU/dL (Up TO 0.2) 12/18/18 16:45 Ur Leukocyte Esterase Negative (Negative) 12/18/18 16:45 Urine Glucose Negative mg/dL (Negative) 12/18/18 16:45
[2018-12-19] MEDS: Ondansetron 4 MG/2 ML VIAL IVP ×3 (09:32→17:58)
--- NOTE | 2018-12-19 09:35 | DI.VRAD_ITS ---
EXAM: XR Abdomen 2 Views with XR Chest 1 View EXAM DATE/TIME: 12/19/2018 9:03 AM CLINICAL HISTORY: 58 years old, male; Pain; Abdominal pain; Generalized TECHNIQUE: XR of the abdomen (2 views) with XR chest (1 view). COMPARISON: CT ABDOMEN PELVIS W 12/18/2018 1:42 PM FINDINGS: Lungs: Normal. No consolidation. Pleural space: Normal. No pneumothorax. Heart/Mediastinum: Normal. No cardiomegaly. Gastrointestinal tract: Normal. No bowel dilation. Intraperitoneal space: Normal. No free air. Bones/joints: Degenerative changes of aging within the thoracic and lumbar spine. No acute fracture. Soft tissues: Normal. IMPRESSION: No acute findings. Dictated and Authenticated by: Dg Jacobs MD. Ordering:JAVIER Gutierrez MD
[2018-12-19] MEDS: Enoxaparin 40 MG/0.4 ML SYR SC (15:52)
--- NOTE | 2018-12-19 16:07 | PDOC.CMIN ---
Care Management Initial Assess REASON FOR HOSPITALIZATION:: Diverticulitis with microperforation PAST MEDICAL HISTORY/PAST SURGICAL HISTORY:: Medical: Diverticulitis of large intestine with perforation (Acute), Diverticulosis (Chronic), Asthma, Back pain, COPD (chronic obstructive pulmonary disease), GERD (gastroesophageal reflux disease), Hypertension,. 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 Surgical: Hydrocelectomy; Repair, Tendon or Muscle PREVIOUS FUNCTIONAL STATUS/SOCIAL/FAMILY SUPPORTS:: Lives with his , Sydnee, at their home in [facility] [place]. Independent at baseline. He is he primary caregiver for his and she is completely dependent uponhim. Her brother is staying at the house for a few days to help while Berny is in the hospital. CURRENT FUNCTIONAL STATUS:: Lying in be and states he is still in pain and can only have ice chips. Concerned that if this hospital stay is more hthan a few days he will need help getting caregivers for his . ADVANCE DIRECTIVES:: None on file Has patient been provided with information about the portal?: No Did the patient sign up for the portal?: No CODE STATUS:: Full Code INSURANCE COVERAGE / FINANCIAL ISSUES:: BC/BS CURRENT HOME/COMMUNITY SERVICES/EQUIPMENT:: None at this time PRIMARY CARE PHYSICIAN:: [facility]: Darrell Madera MD POTENTIAL DISCHARGE NEEDS:: Caregivers to assist with his PATIENT/FAMILY EDUCATION NEEDS:: Discharge instructions ANTICIPATED BARRIERS TO DISCHARGE:: None identified TRANSPORTATION:: Family PLAN:: Berny will return home when medically cleared for discharge. No services needed for him but he may need assistance in caring for his . Family will transport.
--- NOTE | 2018-12-19 16:42 | PGE_ITS ---
Date of Service Date of service: 12/19/18 Time of Service: 16:39 Assessment and Plan (1) Diverticulitis of large intestine with perforation: Current visit: Yes Status: Acute A\\ Diverticulitis with microperforation. No abscess Pain is better then this morning P\\ Continue current treatment. Watch for worsening pain Qualifiers: Diverticulitis bleeding: without bleeding Qualified Code(s): K57.20 - Diverticulitis of large intestine with perforation and abscess without bleeding (2) Hypertension: Current visit: Yes Status: Chronic A\\ On his home medication Spikes of Hypertension most likely due to pain P\\ Continue to monitor Qualifiers: Hypertension type: essential hypertension Qualified Code(s): I10 - Essential (primary) hypertension Subjective Interval history since last seen: Feeling a little better. Passing flatus now. Abdominal pain maybe a little better as well. Nausea is also subsiding Exam GI Palpation: soft and tender in the LLQ (less tender then this am. No guarding) and suprapubicly (less tender then this morning. No guarding) Auscultation: hypoactive bowel sounds Objective Objective Clinical Data: Abnormal lab results 12/18/18 12/19/18 12/19/18 Range/Units 16:45 05:53 05:53 WBC 17.54 H (4.4-10.8) k/cumm RBC 4.03 L (4.50-6.00) m/cumm MCV 100.5 H (80-95) fL MCH 34.7 H (27.0-33.0) pg Absolute Neutrophils 16.40 H (1.2-6.7) k/cumm Absolute Lymphocytes 0.54 L (1.2-3.4) k/cumm Sodium 134 L (136-145) mmol/L Glucose 170 H (70-100) mg/dL Urine Ketones 40 H (Negative) mg/dL Vital Signs Temperature 98.2 F 12/19/18 16:10 Temperature Source Tympanic 12/19/18 16:10 Pulse 89 12/19/18 16:10 Pulse Rhythm Regular 12/19/18 09:32 Respiratory Rate 18 12/19/18 16:10 Respiratory Effort Non-Labored 12/19/18 09:32 Respiratory Depth Normal 12/19/18 09:32 Respiratory Pattern Normal 12/19/18 09:32 Blood Pressure 147/82 H 12/19/18 16:10 Blood Pressure Position Sitting 12/18/18 12:53 Pulse Oximetry 96 12/19/18 16:10 Oxygen Delivery Method Room Air 12/19/18 16:10 Oxygen Flow Rate 0 12/19/18 16:10 Pain Level 4 12/19/18 13:26 Comment 12/19/18 11:28 Intake & Output 12/18/18 12/19/18 12/19/18 23:59 11:59 23:59 Intake Total 661.25 / 661.25 2418.75 / 2418.75 Output Total 300 / 300 100 / 700 600 / 700 Balance 361.25 / 361.25 2318.75 / 1718.75 -600 / 1718.75 Weight 199 lb 15.983 oz 202 lb 2.622 oz Intake: IV 661.25 / 661.25 2418.75 / 2418.75 Output: Urine 300 / 300 600 / 600 Emesis 100 / 100 Other: Urine Color Light Sharon Light Sharon Urine Appearance Clear Clear Urine Odor None Normal Comment voided in toilet, flushed Emesis Description Bile Voiding Methods Toilet Laboratory Results WBC 17.54 k/cumm (4.4-10.8) H 12/19/18 05:53 RBC 4.03 m/cumm (4.50-6.00) L 12/19/18 05:53 Hgb 14.0 g/dL (13.5-17.5) D 12/19/18 05:53 Hct 40.5 % (40.0-50.0) 12/19/18 05:53 MCV 100.5 fL (80-95) H 12/19/18 05:53 MCH 34.7 pg (27.0-33.0) H 12/19/18 05:53 MCHC 34.6 g/dL (32.0-36.0) 12/19/18 05:53 RDW 12.7 % (11.8-14.1) 12/19/18 05:53 Plt Count 193 x1000/uL (130-400) 12/19/18 05:53 MPV 9.7 fL (8.0-11.0) 12/19/18 05:53 Immature Gran % 0.2 12/19/18 05:53 Neutrophils % 93.5 12/19/18 05:53 Lymphocytes % 3.1 12/19/18 05:53 Monocytes % 3.0 12/19/18 05:53 Eosinophils % 0.1 12/19/18 05:53 Basophils % 0.1 12/19/18 05:53 Absolute Neutrophils 16.40 k/cumm (1.2-6.7) H 12/19/18 05:53 Absolute Lymphocytes 0.54 k/cumm (1.2-3.4) L 12/19/18 05:53 Absolute Monocytes 0.53 k/cumm (0.11-0.7) 12/19/18 05:53 Absolute Eosinophils 0.02 k/cumm (0.0-0.7) 12/19/18 05:53 Absolute Basophils 0.02 k/cumm (0.0-0.2) 12/19/18 05:53 Sodium 134 mmol/L (136-145) L 12/19/18 05:53 Potassium 3.7 mmol/L (3.5-5.1) 12/19/18 05:53 Chloride 100 mmol/L (98-107) 12/19/18 05:53 Carbon Dioxide 23.4 mmol/L (21.0-32.0) 12/19/18 05:53 Anion Gap 10.6 mmol/L (3-11) 12/19/18 05:53 BUN 14 mg/dL (7-18) 12/19/18 05:53 Creatinine 0.98 mg/dL (0.70-1.30) 12/19/18 05:53 Estimated GFR/1.73 m2 >= 60.00 (mL/min/1.73m2) 12/19/18 05:53 Glucose 170 mg/dL (70-100) H 12/19/18 05:53 Lactate 1.9 mmol/L (0.6-1.4) H 12/18/18 13:33 Calcium 8.5 mg/dL (8.5-10.1) 12/19/18 05:53 Magnesium 2.1 mg/dL (1.8-2.4) 12/18/18 13:10 Total Bilirubin 0.9 mg/dL (0.2-1.0) 12/18/18 13:10 AST 26 U/L (15-37) 12/18/18 13:10 ALT 50 U/L (12-78) 12/18/18 13:10 Alkaline Phosphatase 123 U/L (46-116) H 12/18/18 13:10 Total Protein 8.0 g/dL (6.4-8.2) 12/18/18 13:10 Albumin 4.4 g/dL (3.4-5.0) 12/18/18 13:10 Lipase 91 U/L (73-393) 12/18/18 13:10 Urine Color Yellow (Yellow) 12/18/18 16:45 Urine Clarity Clear 12/18/18 16:45 Urine pH 5.5 (5-8) 12/18/18 16:45 Ur Specific [place] <= 1.005 (1.005-1.025) 12/18/18 16:45 Urine Protein Negative mg/dL (Negative) 12/18/18 16:45 Urine Ketones 40 mg/dL (Negative) H 12/18/18 16:45 Urine Blood Negative (Negative) 12/18/18 16:45 Urine Nitrite Negative (Negative) 12/18/18 16:45 Urine Bilirubin Negative (Negative) 12/18/18 16:45 Urine Urobilinogen 0.2 EU/dL (Up TO 0.2) 12/18/18 16:45 Ur Leukocyte Esterase Negative (Negative) 12/18/18 16:45 Urine Glucose Negative mg/dL (Negative) 12/18/18 16:45
[2018-12-19] MEDS: Mometasone 220 MCG 14 DOSE INHALER IH (19:20)
[2018-12-19] MEDS: Atorvastatin 10 MG TAB PO (21:48)
[2018-12-20] VITALS (9 sets, daily range): BP systolic 129–155; BP diastolic 75–84; PULSE 72–107; RESP 16–20; TEMP 36.4–37.9; O2SAT 94–96
[2018-12-20] MEDS: Normal Saline Flush 10 ML SYR IVP ×4 (00:49→13:40)
[2018-12-20] MEDS: Ondansetron 4 MG/2 ML VIAL IVP ×3 (00:50→19:39)
[2018-12-20] MEDS: HYDROmorphone 2 MG/ML VIAL IVP (00:54)
[2018-12-20] MEDS: CIPROFLOXACIN 400 MG/200 ML BAG 200 MG IVPB ×2 (01:19→14:32)
[2018-12-20] MEDS: DEXTROSE 5%-0.45% SALINE 1,000 ML 125 ML IV ×2 (05:40→16:29)
[2018-12-20] MEDS: MetroNIDAZOLE 500 MG/100 ML BAG 100 MG IVPB ×3 (05:42→21:48)
[2018-12-20] MEDS: Normal Saline 500 ML 30 ML IV (06:42)
[2018-12-20] MEDS: Ketorolac 15 MG/ML VIAL IVP ×3 (06:45→19:40)
[2018-12-20 07:17] LABS: Abs Immature Grans 0.03 k/cumm (0.0-0.09); Absolute Basophil Count 0.01 k/cumm (0.0-0.2); Absolute Lymphocyte Count 0.28 k/cumm (1.2-3.4); Basophils % 0.1; Eosinophils % 0.2; HCT 39.4 % (40.0-50.0); HGB 13.2 g/dL (13.5-17.5); Immature Grans % 0.2; Lymphocytes % 2.2; Mean Corp. HGB Concentration 33.5 g/dL (32.0-36.0); Mean Corpuscular Hemoglobin 34.1 pg (27.0-33.0); Mean Corpuscular Volume 101.8 fL (80-95); Mean Platelet Volume 9.9 fL (8.0-11.0); Monocytes % 4.9; Neutrophils % 92.4; Platelet Count 182 x1000/uL (130-400); RBC 3.87 m/cumm (4.50-6.00); RBC Distribution Width 12.6 % (11.8-14.1); White Blood Cell Count 12.77 k/cumm (4.4-10.8)
[2018-12-20 07:20] LABS: Absolute Eosinophil Count 0.03 k/cumm (0.0-0.7); Absolute Monocyte Count 0.63 k/cumm (0.11-0.7)
--- NOTE | 2018-12-20 07:27 | W.PM.PROGNOT ---
Date of Service Date of service: 12/20/18 Time of Service: 07:27 Assessment and Plan (1) Hypertension: Current visit: Yes Status: Chronic Continue to have spikes in his BP correlating with spikes in pain P\\ Continue with home medication for BP and monitor Qualifiers: Hypertension type: essential hypertension Qualified Code(s): I10 - Essential (primary) hypertension (2) Diverticulitis of large intestine with perforation: Current visit: Yes Status: Acute A\\ Pain is decreaseing and bowel function is improving WBC count much improved today Still concerned due to nausea and diaphoresis this am P\\ Continue supportive care with IV fluids and IV antibiotics Serial abdominal exams Qualifiers: Diverticulitis bleeding: without bleeding Qualified Code(s): K57.20 - Diverticulitis of large intestine with perforation and abscess without bleeding Subjective Interval history since last seen: Mr. Gamboa is having nausea at times after getting the dilauded. He has had no emesis. He is diaphoretic this morning. No fevers over night. Pain seems better and he is passing flatus. Exam Resp Effort & Inspection: normal respiratory effort Auscultation: clear to auscultation bilaterally Cardio Rate: regular rate Rhythm: regular rhythm Heart Sounds: no gallops, no murmurs and no rubs GI Inspection: normal to inspection Palpation: soft and tender (RLQ pain- less the yesterday. No guarding. No suprapubic or LLQ pain today) Auscultation: normal bowel sounds Objective Objective Clinical Data: Abnormal lab results 12/20/18 Range/Units 06:38 WBC 12.77 H (4.4-10.8) k/cumm RBC 3.87 L (4.50-6.00) m/cumm Hgb 13.2 L (13.5-17.5) g/dL Hct 39.4 L (40.0-50.0) % MCV 101.8 H (80-95) fL MCH 34.1 H (27.0-33.0) pg Absolute Neutrophils 11.80 H (1.2-6.7) k/cumm Absolute Lymphocytes 0.28 L (1.2-3.4) k/cumm Vital Signs Temperature 99.3 F 12/20/18 07:03 Temperature Source Tympanic 12/20/18 07:03 Pulse 96 H 12/20/18 07:03 Pulse Rhythm Regular 12/20/18 00:32 Respiratory Rate 20 12/20/18 07:03 Respiratory Effort 12/20/18 00:32 Respiratory Depth Normal 12/20/18 00:32 Respiratory Pattern Normal 12/20/18 00:32 Blood Pressure 136/84 12/20/18 07:03 Blood Pressure Position Sitting 12/18/18 12:53 Pulse Oximetry 94 L 12/20/18 07:03 Oxygen Delivery Method Room Air 12/20/18 07:03 Oxygen Flow Rate 0 12/20/18 07:03 Pain Level 5 12/20/18 06:45 Comment 12/19/18 11:28 Intake & Output 12/19/18 12/19/18 12/20/18 11:59 23:59 11:59 Intake Total 2418.75 / 3818.75 1400 / 3818.75 1000 / 1000 Output Total 100 / 700 600 / 700 600 / 600 Balance 2318.75 / 3118.75 800 / 3118.75 400 / 400 Weight 202 lb 2.622 oz 206 lb 5.643 oz Intake: IV 2418.75 / 3818.75 1400 / 3818.75 1000 / 1000 Output: Urine 600 / 600 600 / 600 Emesis 100 / 100 Other: Urine Color Light Sharon Dark [place] Urine Appearance Clear Clear Clear Urine Odor Normal Comment voided in toilet, flushed Emesis Description Bile None Voiding Methods Toilet Laboratory Results WBC 12.77 k/cumm (4.4-10.8) H 12/20/18 06:38 RBC 3.87 m/cumm (4.50-6.00) L 12/20/18 06:38 Hgb 13.2 g/dL (13.5-17.5) L 12/20/18 06:38 Hct 39.4 % (40.0-50.0) L 12/20/18 06:38 MCV 101.8 fL (80-95) H 12/20/18 06:38 MCH 34.1 pg (27.0-33.0) H 12/20/18 06:38 MCHC 33.5 g/dL (32.0-36.0) 12/20/18 06:38 RDW 12.6 % (11.8-14.1) 12/20/18 06:38 Plt Count 182 x1000/uL (130-400) 12/20/18 06:38 MPV 9.9 fL (8.0-11.0) 12/20/18 06:38 Immature Gran % 0.2 12/20/18 06:38 Neutrophils % 92.4 12/20/18 06:38 Lymphocytes % 2.2 12/20/18 06:38 Monocytes % 4.9 12/20/18 06:38 Eosinophils % 0.2 12/20/18 06:38 Basophils % 0.1 12/20/18 06:38 Absolute Neutrophils 11.80 k/cumm (1.2-6.7) H 12/20/18 06:38 Absolute Lymphocytes 0.28 k/cumm (1.2-3.4) L 12/20/18 06:38 Absolute Monocytes 0.63 k/cumm (0.11-0.7) 12/20/18 06:38 Absolute Eosinophils 0.03 k/cumm (0.0-0.7) 12/20/18 06:38 Absolute Basophils 0.01 k/cumm (0.0-0.2) 12/20/18 06:38 Sodium 134 mmol/L (136-145) L 12/19/18 05:53 Potassium 3.7 mmol/L (3.5-5.1) 12/19/18 05:53 Chloride 100 mmol/L (98-107) 12/19/18 05:53 Carbon Dioxide 23.4 mmol/L (21.0-32.0) 12/19/18 05:53 Anion Gap 10.6 mmol/L (3-11) 12/19/18 05:53 BUN 14 mg/dL (7-18) 12/19/18 05:53 Creatinine 0.98 mg/dL (0.70-1.30) 12/19/18 05:53 Estimated GFR/1.73 m2 >= 60.00 (mL/min/1.73m2) 12/19/18 05:53 Glucose 170 mg/dL (70-100) H 12/19/18 05:53 Lactate 1.9 mmol/L (0.6-1.4) H 12/18/18 13:33 Calcium 8.5 mg/dL (8.5-10.1) 12/19/18 05:53 Magnesium 2.1 mg/dL (1.8-2.4) 12/18/18 13:10 Total Bilirubin 0.9 mg/dL (0.2-1.0) 12/18/18 13:10 AST 26 U/L (15-37) 12/18/18 13:10 ALT 50 U/L (12-78) 12/18/18 13:10 Alkaline Phosphatase 123 U/L (46-116) H 12/18/18 13:10 Total Protein 8.0 g/dL (6.4-8.2) 12/18/18 13:10 Albumin 4.4 g/dL (3.4-5.0) 12/18/18 13:10 Lipase 91 U/L (73-393) 12/18/18 13:10 Urine Color Yellow (Yellow) 12/18/18 16:45 Urine Clarity Clear 12/18/18 16:45 Urine pH 5.5 (5-8) 12/18/18 16:45 Ur Specific [place] <= 1.005 (1.005-1.025) 12/18/18 16:45 Urine Protein Negative mg/dL (Negative) 12/18/18 16:45 Urine Ketones 40 mg/dL (Negative) H 12/18/18 16:45 Urine Blood Negative (Negative) 12/18/18 16:45 Urine Nitrite Negative (Negative) 12/18/18 16:45 Urine Bilirubin Negative (Negative) 12/18/18 16:45 Urine Urobilinogen 0.2 EU/dL (Up TO 0.2) 12/18/18 16:45 Ur Leukocyte Esterase Negative (Negative) 12/18/18 16:45 Urine Glucose Negative mg/dL (Negative) 12/18/18 16:45
[2018-12-20] MEDS: Lisinopril 10 MG TAB PO (07:33)
[2018-12-20] MEDS: Pantoprazole 40 MG VIAL IVP (07:33)
[2018-12-20 07:44] LABS: Anion Gap 8.8 mmol/L (3-11); BUN 11 mg/dL (7-18); CO2 23.2 mmol/L (21.0-32.0); CREATININE 0.96 mg/dL (0.70-1.30); Calcium 8.4 mg/dL (8.5-10.1); Chloride 102 mmol/L (98-107); Glucose 141 mg/dL (70-100); Potassium 3.7 mmol/L (3.5-5.1); Sodium 134 mmol/L (136-145)
[2018-12-20] MEDS: ACETAMINOPHEN 1,000 MG/100 ML BTL 400 MG IVPB ×2 (09:49→18:17)
--- NOTE | 2018-12-20 09:49 | PDOC.CMPRO ---
- If Service Date Differs Date of service: 12/20/18 Time of Service: 09:49 Care Management Progress Note S/O:Berny makes good eye contact he is engaged during CM interaction. Berny states that he continues to have some abdominal discomfort. He continues on IV antibiotics. He does have family staying with his spouse at this time to care for. He is requesting CM contact home health to request home services for his spouse while he is recovering. CM will contact [facility] and identify possible resources. He is familiar with private care agencies. Per provider he will be started on sips of clears to see if he tolerates. A:Berny is a 58 year old male admitted Diverticulitis of large intestine with perforation P:Berny will return home when medically cleared for discharge. CM to refer to community resources for assistance with caring for spouse at home. Family will transport home via private car.
--- NOTE | 2018-12-20 09:59 | CMPROGNOTE_ITS ---
- If Service Date Differs Date of service: 12/20/18 Time of Service: 09:49 Care Management Progress Note S/O:Berny makes good eye contact he is engaged during CM interaction. Berny states that he continues to have some abdominal discomfort. He continues on IV antibiotics. He does have family staying with his spouse at this time to care for. He is requesting CM contact home health to request home services for his spouse while he is recovering. CM will contact [facility] and identify possible reso urces. He is familiar with private care agencies. Per provider he will be started on sips of clears to see if he tolerates. A:Berny is a 58 year old male admitted Diverticulitis of large intestine with perforation P:Berny will return home when medically cleared for discharge. CM to refer to community resources for assistance with caring for spouse at home. Family will transport home via private car.
--- NOTE | 2018-12-20 16:13 | W.PM.PROGNOT ---
Date of Service Date of service: 12/20/18 Time of Service: 16:13 Assessment and Plan (1) Diverticulitis of large intestine with perforation: Current visit: Yes Status: Acute A\\ Slow improvement. Passing gas, feeling hungry P\\ Will start him on sips of clears and see how he does. Discussed with patient that if he gets nauseated or has increased pain to stop drinking and let nursing staff know. Qualifiers: Diverticulitis bleeding: without bleeding Qualified Code(s): K57.20 - Diverticulitis of large intestine with perforation and abscess without bleeding Subjective Interval history since last seen: Doing a little better. Nausea is better this afternoon.l he is passing flatus. No BM yet. Some pain still in the lower abdomen Exam GI Inspection: normal to inspection Palpation: soft and tender in the LLQ (tender with guarding, no rebound) and in the RLQ (mild tenderness, no guarding) Auscultation: normal bowel sounds Objective Objective Clinical Data: Abnormal lab results 12/20/18 12/20/18 Range/Units 06:38 06:38 WBC 12.77 H (4.4-10.8) k/cumm RBC 3.87 L (4.50-6.00) m/cumm Hgb 13.2 L (13.5-17.5) g/dL Hct 39.4 L (40.0-50.0) % MCV 101.8 H (80-95) fL MCH 34.1 H (27.0-33.0) pg Absolute Neutrophils 11.80 H (1.2-6.7) k/cumm Absolute Lymphocytes 0.28 L (1.2-3.4) k/cumm Sodium 134 L (136-145) mmol/L Glucose 141 H (70-100) mg/dL Calcium 8.4 L (8.5-10.1) mg/dL Vital Signs Temperature 97.9 F 12/20/18 11:01 Temperature Source Tympanic 12/20/18 11:01 Pulse 72 12/20/18 11:01 Pulse Rhythm Regular 12/20/18 07:40 Respiratory Rate 20 12/20/18 11:01 Respiratory Effort 12/20/18 07:40 Respiratory Depth Normal 12/20/18 07:40 Respiratory Pattern Normal 12/20/18 07:40 Blood Pressure 130/80 12/20/18 11:01 Blood Pressure Position Sitting 12/18/18 12:53 Pulse Oximetry 95 12/20/18 11:01 Oxygen Delivery Method Room Air 12/20/18 11:01 Oxygen Flow Rate 0 12/20/18 11:01 Pain Level 3 12/20/18 13:40 Comment 12/19/18 11:28 Intake & Output 12/19/18 12/20/18 12/20/18 23:59 11:59 23:59 Intake Total 1400 / 3818.75 1679.000 / 2116.500 437.5 / 2116.500 Output Total 600 / 700 600 / 600 Balance 800 / 3118.75 1079.000 / 1516.500 437.5 / 1516.500 Weight 206 lb 5.643 oz Intake: IV 1400 / 3818.75 1679.000 / 2116.500 437.5 / 2116.500 Oral 0 / 0 Output: Urine 600 / 600 600 / 600 Other: Urine Color Light Sharon Dark Sharon Urine Appearance Clear Clear Urine Odor Normal Emesis Description None Voiding Methods Toilet Laboratory Results WBC 12.77 k/cumm (4.4-10.8) H 12/20/18 06:38 RBC 3.87 m/cumm (4.50-6.00) L 12/20/18 06:38 Hgb 13.2 g/dL (13.5-17.5) L 12/20/18 06:38 Hct 39.4 % (40.0-50.0) L 12/20/18 06:38 MCV 101.8 fL (80-95) H 12/20/18 06:38 MCH 34.1 pg (27.0-33.0) H 12/20/18 06:38 MCHC 33.5 g/dL (32.0-36.0) 12/20/18 06:38 RDW 12.6 % (11.8-14.1) 12/20/18 06:38 Plt Count 182 x1000/uL (130-400) 12/20/18 06:38 MPV 9.9 fL (8.0-11.0) 12/20/18 06:38 Immature Gran % 0.2 12/20/18 06:38 Neutrophils % 92.4 12/20/18 06:38 Lymphocytes % 2.2 12/20/18 06:38 Monocytes % 4.9 12/20/18 06:38 Eosinophils % 0.2 12/20/18 06:38 Basophils % 0.1 12/20/18 06:38 Absolute Neutrophils 11.80 k/cumm (1.2-6.7) H 12/20/18 06:38 Absolute Lymphocytes 0.28 k/cumm (1.2-3.4) L 12/20/18 06:38 Absolute Monocytes 0.63 k/cumm (0.11-0.7) 12/20/18 06:38 Absolute Eosinophils 0.03 k/cumm (0.0-0.7) 12/20/18 06:38 Absolute Basophils 0.01 k/cumm (0.0-0.2) 12/20/18 06:38 Sodium 134 mmol/L (136-145) L 12/20/18 06:38 Potassium 3.7 mmol/L (3.5-5.1) 12/20/18 06:38 Chloride 102 mmol/L (98-107) 12/20/18 06:38 Carbon Dioxide 23.2 mmol/L (21.0-32.0) 12/20/18 06:38 Anion Gap 8.8 mmol/L (3-11) 12/20/18 06:38 BUN 11 mg/dL (7-18) 12/20/18 06:38 Creatinine 0.96 mg/dL (0.70-1.30) 12/20/18 06:38 Estimated GFR/1.73 m2 >= 60.00 (mL/min/1.73m2) 12/20/18 06:38 Glucose 141 mg/dL (70-100) H 12/20/18 06:38 Lactate 1.9 mmol/L (0.6-1.4) H 12/18/18 13:33 Calcium 8.4 mg/dL (8.5-10.1) L 12/20/18 06:38 Magnesium 2.1 mg/dL (1.8-2.4) 12/18/18 13:10 Total Bilirubin 0.9 mg/dL (0.2-1.0) 12/18/18 13:10 AST 26 U/L (15-37) 12/18/18 13:10 ALT 50 U/L (12-78) 12/18/18 13:10 Alkaline Phosphatase 123 U/L (46-116) H 12/18/18 13:10 Total Protein 8.0 g/dL (6.4-8.2) 12/18/18 13:10 Albumin 4.4 g/dL (3.4-5.0) 12/18/18 13:10 Lipase 91 U/L (73-393) 12/18/18 13:10 Urine Color Yellow (Yellow) 12/18/18 16:45 Urine Clarity Clear 12/18/18 16:45 Urine pH 5.5 (5-8) 12/18/18 16:45 Ur Specific [place] <= 1.005 (1.005-1.025) 12/18/18 16:45 Urine Protein Negative mg/dL (Negative) 12/18/18 16:45 Urine Ketones 40 mg/dL (Negative) H 12/18/18 16:45 Urine Blood Negative (Negative) 12/18/18 16:45 Urine Nitrite Negative (Negative) 12/18/18 16:45 Urine Bilirubin Negative (Negative) 12/18/18 16:45 Urine Urobilinogen 0.2 EU/dL (Up TO 0.2) 12/18/18 16:45 Ur Leukocyte Esterase Negative (Negative) 12/18/18 16:45 Urine Glucose Negative mg/dL (Negative) 12/18/18 16:45
[2018-12-20] MEDS: Enoxaparin 40 MG/0.4 ML SYR SC (16:29)
[2018-12-20] MEDS: Mometasone 220 MCG 14 DOSE INHALER IH (19:40)
[2018-12-20] MEDS: Atorvastatin 10 MG TAB PO (21:48)
[2018-12-21] MEDS: DEXTROSE 5%-0.45% SALINE 1,000 ML 125 ML IV ×2 (01:29→16:19)
[2018-12-21] MEDS: Normal Saline Flush 10 ML SYR IVP ×4 (02:17→21:50)
[2018-12-21] MEDS: Ketorolac 15 MG/ML VIAL IVP ×4 (02:18→20:36)
[2018-12-21] MEDS: ACETAMINOPHEN 1,000 MG/100 ML BTL 400 MG IVPB ×2 (02:23→10:52)
[2018-12-21] MEDS: Normal Saline 500 ML 30 ML IV (02:26)
[2018-12-21] MEDS: CIPROFLOXACIN 400 MG/200 ML BAG 200 MG IVPB ×2 (02:46→15:13)
[2018-12-21 04:12] VITALS: BP 135/86; PULSE 84; RESP 16; TEMP 36.1; O2SAT 96
[2018-12-21] MEDS: MetroNIDAZOLE 500 MG/100 ML BAG 100 MG IVPB ×3 (05:40→22:01)
[2018-12-21 07:22] VITALS: BP 145/82; PULSE 78; RESP 18; TEMP 37.4; O2SAT 96
--- NOTE | 2018-12-21 07:26 | PGE_ITS ---
Date of Service Date of service: 12/21/18 Time of Service: 07:20 Assessment and Plan (1) Diverticulitis of large intestine with perforation: Current visit: Yes Status: Acute A\\ No real improvement in his pain NOt wanting to eat. Passing flatus, no BM P\\ CT scan of abdo/Pelvis with oral and IV contrast, ? abscess Further recommendations depending on CT scan results Qualifiers: Diverticulitis bleeding: without bleeding Qualified Code(s): K57.20 - Diverticulitis of large intestine with perforation and abscess without bleeding (2) Hypertension: Current visit: Yes Status: Chronic A\\ Stable BP P\\ Continue home medications Qualifiers: Hypertension type: essential hypertension Qualified Code(s): I10 - Essential (primary) hypertension Subjective Interval history since last seen: Mr. Gamboa is doing OK this am. Still passing flatus. Pain is about the same. Didn't drink much, just wasn't hungry. NO nausea. No fevers overnight. Exam Resp Effort & Inspection: normal respiratory effort Auscultation: clear to auscultation bilaterally Cardio Rate: regular rate Rhythm: regular rhythm Heart Sounds: no gallops, no murmurs and no rubs GI Inspection: normal to inspection Palpation: soft and tender (Lower abdomen is tender. No guarding) Auscultation: normal bowel sounds Objective Objective Clinical Data: Abnormal lab results 12/20/18 Range/Units 06:38 Sodium 134 L (136-145) mmol/L Glucose 141 H (70-100) mg/dL Calcium 8.4 L (8.5-10.1) mg/dL Vital Signs Temperature 97.0 F L 12/21/18 04:12 Temperature Source Tympanic 12/21/18 04:12 Pulse 84 12/21/18 04:12 Pulse Rhythm Regular 12/21/18 02:40 Respiratory Rate 16 12/21/18 04:12 Respiratory Effort 12/21/18 02:40 Respiratory Depth Normal 12/21/18 02:40 Respiratory Pattern Normal 12/21/18 02:40 Blood Pressure 135/86 12/21/18 04:12 Blood Pressure Position Sitting 12/18/18 12:53 Pulse Oximetry 96 12/21/18 04:12 Oxygen Delivery Method Room Air 12/21/18 04:12 Oxygen Flow Rate 0 12/21/18 04:12 Pain Level 0 12/21/18 03:00 Comment 12/19/18 11:28 Intake & Output 12/20/18 12/20/18 12/21/18 11:59 23:59 11:59 Intake Total 1709.000 / 2646.500 937.5 / 2646.500 1513.5 / 1513.5 Output Total 600 / 1700 1100 / 1700 1600 / 1600 Balance 1109.000 / 946.500 -162.5 / 946.500 -86.5 / -86.5 Weight 206 lb 5.643 oz Intake: IV 1709.000 / 2646.500 937.5 / 2646.500 1513.5 / 1513.5 Oral 0 / 0 Output: Urine 600 / 1700 1100 / 1700 1600 / 1600 Other: Urine Color Dark Sharon Dark Sharon Light Sharon Urine Appearance Clear Clear Clear Urine Odor Normal None Comment From previous voids in bathroom. Emesis Description None Voiding Methods Toilet Toilet Toilet Urinal Laboratory Results WBC 12.77 k/cumm (4.4-10.8) H 12/20/18 06:38 RBC 3.87 m/cumm (4.50-6.00) L 12/20/18 06:38 Hgb 13.2 g/dL (13.5-17.5) L 12/20/18 06:38 Hct 39.4 % (40.0-50.0) L 12/20/18 06:38 MCV 101.8 fL (80-95) H 12/20/18 06:38 MCH 34.1 pg (27.0-33.0) H 12/20/18 06:38 MCHC 33.5 g/dL (32.0-36.0) 12/20/18 06:38 RDW 12.6 % (11.8-14.1) 12/20/18 06:38 Plt Count 182 x1000/uL (130-400) 12/20/18 06:38 MPV 9.9 fL (8.0-11.0) 12/20/18 06:38 Immature Gran % 0.2 12/20/18 06:38 Neutrophils % 92.4 12/20/18 06:38 Lymphocytes % 2.2 12/20/18 06:38 Monocytes % 4.9 12/20/18 06:38 Eosinophils % 0.2 12/20/18 06:38 Basophils % 0.1 12/20/18 06:38 Absolute Neutrophils 11.80 k/cumm (1.2-6.7) H 12/20/18 06:38 Absolute Lymphocytes 0.28 k/cumm (1.2-3.4) L 12/20/18 06:38 Absolute Monocytes 0.63 k/cumm (0.11-0.7) 12/20/18 06:38 Absolute Eosinophils 0.03 k/cumm (0.0-0.7) 12/20/18 06:38 Absolute Basophils 0.01 k/cumm (0.0-0.2) 12/20/18 06:38 Sodium 134 mmol/L (136-145) L 12/20/18 06:38 Potassium 3.7 mmol/L (3.5-5.1) 12/20/18 06:38 Chloride 102 mmol/L (98-107) 12/20/18 06:38 Carbon Dioxide 23.2 mmol/L (21.0-32.0) 12/20/18 06:38 Anion Gap 8.8 mmol/L (3-11) 12/20/18 06:38 BUN 11 mg/dL (7-18) 12/20/18 06:38 Creatinine 0.96 mg/dL (0.70-1.30) 12/20/18 06:38 Estimated GFR/1.73 m2 >= 60.00 (mL/min/1.73m2) 12/20/18 06:38 Glucose 141 mg/dL (70-100) H 12/20/18 06:38 Lactate 1.9 mmol/L (0.6-1.4) H 12/18/18 13:33 Calcium 8.4 mg/dL (8.5-10.1) L 12/20/18 06:38 Magnesium 2.1 mg/dL (1.8-2.4) 12/18/18 13:10 Total Bilirubin 0.9 mg/dL (0.2-1.0) 12/18/18 13:10 AST 26 U/L (15-37) 12/18/18 13:10 ALT 50 U/L (12-78) 12/18/18 13:10 Alkaline Phosphatase 123 U/L (46-116) H 12/18/18 13:10 Total Protein 8.0 g/dL (6.4-8.2) 12/18/18 13:10 Albumin 4.4 g/dL (3.4-5.0) 12/18/18 13:10 Lipase 91 U/L (73-393) 12/18/18 13:10 Urine Color Yellow (Yellow) 12/18/18 16:45 Urine Clarity Clear 12/18/18 16:45 Urine pH 5.5 (5-8) 12/18/18 16:45 Ur Specific [place] <= 1.005 (1.005-1.025) 12/18/18 16:45 Urine Protein Negative mg/dL (Negative) 12/18/18 16:45 Urine Ketones 40 mg/dL (Negative) H 12/18/18 16:45 Urine Blood Negative (Negative) 12/18/18 16:45 Urine Nitrite Negative (Negative) 12/18/18 16:45 Urine Bilirubin Negative (Negative) 12/18/18 16:45 Urine Urobilinogen 0.2 EU/dL (Up TO 0.2) 12/18/18 16:45 Ur Leukocyte Esterase Negative (Negative) 12/18/18 16:45 Urine Glucose Negative mg/dL (Negative) 12/18/18 16:45
[2018-12-21 07:36] LABS: Abs Immature Grans 0.01 k/cumm (0.0-0.09); Absolute Basophil Count 0.01 k/cumm (0.0-0.2); Absolute Eosinophil Count 0.15 k/cumm (0.0-0.7); Absolute Lymphocyte Count 0.57 k/cumm (1.2-3.4); Absolute Monocyte Count 0.61 k/cumm (0.11-0.7); Absolute Neutrophil Count 7.66 k/cumm (1.2-6.7); Basophils % 0.1; Eosinophils % 1.7; HCT 37.4 % (40.0-50.0); HGB 12.5 g/dL (13.5-17.5); Immature Grans % 0.1; Lymphocytes % 6.3; Mean Corp. HGB Concentration 33.4 g/dL (32.0-36.0); Mean Corpuscular Hemoglobin 33.9 pg (27.0-33.0); Mean Corpuscular Volume 101.4 fL (80-95); Mean Platelet Volume 9.9 fL (8.0-11.0); Monocytes % 6.8; Platelet Count 191 x1000/uL (130-400); RBC 3.69 m/cumm (4.50-6.00); RBC Distribution Width 12.5 % (11.8-14.1); White Blood Cell Count 9.01 k/cumm (4.4-10.8)
[2018-12-21 07:58] LABS: Anion Gap 7.6 mmol/L (3-11); BUN 10 mg/dL (7-18); CO2 26.4 mmol/L (21.0-32.0); CREATININE 0.97 mg/dL (0.70-1.30); Calcium 8.6 mg/dL (8.5-10.1); Chloride 106 mmol/L (98-107); Glucose 121 mg/dL (70-100); Magnesium 2.1 mg/dL (1.8-2.4); Potassium 4.4 mmol/L (3.5-5.1); Sodium 140 mmol/L (136-145)
[2018-12-21] MEDS: Pantoprazole 40 MG VIAL IVP (08:05)
[2018-12-21] MEDS: Omnipaque 350 MG/ML 100 ML BTL IJ (09:03)
--- NOTE | 2018-12-21 09:05 | DI.CT_ITS ---
SYMPTOM/DIAGNOSIS: DIVERTICULITIS WITH PERF - ? ABSCESS CT ABDOMEN AND PELVIS: The study is compared with the prior study of 12/18/18. Again noted is diverticulosis and evidence of diverticulitis involving the sigmoid colon. There has been some increase in the quantity of extraluminal gas adjacent to the sigmoid loop when compared with the previous study, A small air fluid level is identified. The findings would be consistent with a small abscess. The CT exam of the abdomen and pelvis is otherwise unchanged when compared with the prior study.
[2018-12-21] MEDS: Lisinopril 10 MG TAB PO (10:52)
[2018-12-21 11:08] VITALS: BP 132/80; PULSE 72; RESP 18; TEMP 37.1; O2SAT 96
--- NOTE | 2018-12-21 12:10 | CMPROGNOTE_ITS ---
- If Service Date Differs Date of service: 12/21/18 Time of Service: 12:09 Care Management Progress Note S/O:Berny remains acute level of care today he continues to have some discomfort in his abdomen. He continues on IV antibiotics, and IV pain management. His family is staying with his spouse and he has hired an OCCUPATIONAL THERAPY DIRECTOR to care for her as well. He remains NPO at this time. CM did contact home health concerning his spouse and will follow up with chronic nurse healthcare manager at the primary care to request referral to home health if appropriate. A:Berny is a 58 year old male admitted Diverticulitis of large intestine with perforation P:Berny will return home when medically cleared for discharge. CM to refer to community resources for assistance with caring for spouse at home. Family will transport home via private car.
--- NOTE | 2018-12-21 15:12 | CHAPLAIN ---
Berny was sitting up in his chair when I visited yesterday. He said it was the first time he'd been up in a while and it felt good. Other than his own health, Berny is concerned about his . He is her primary caregiver. Her brother has been able to stay with her, but Berny is worried about continued care for her if he is here.
[2018-12-21] MEDS: Enoxaparin 40 MG/0.4 ML SYR SC (15:13)
--- NOTE | 2018-12-21 15:39 | W.PM.PROGNOT ---
Date of Service Date of service: 12/21/18 Time of Service: 15:39 Assessment and Plan (1) Diverticulitis of large intestine with perforation: Current visit: Yes Status: Acute A\\ Slowly improving P\\ Continue with NPO and supportive care with antibiotics Qualifiers: Diverticulitis bleeding: without bleeding Qualified Code(s): K57.20 - Diverticulitis of large intestine with perforation and abscess without bleeding Subjective Interval history since last seen: Doing OK. Had 2 BM's. had increase in pain with BM. Pain then decreased afterwards. No N/V. No fevers In good spirits. Talking on the phone. Exam GI Inspection: normal to inspection Palpation: soft and tender (mild tenderness in the LLQ. I can push a lot deeper this pm.) Auscultation: normal bowel sounds Objective Objective Clinical Data: Abnormal lab results 12/21/18 12/21/18 Range/Units 06:50 06:50 RBC 3.69 L (4.50-6.00) m/cumm Hgb 12.5 L (13.5-17.5) g/dL Hct 37.4 L (40.0-50.0) % MCV 101.4 H (80-95) fL MCH 33.9 H (27.0-33.0) pg Absolute Neutrophils 7.66 H (1.2-6.7) k/cumm Absolute Lymphocytes 0.57 L (1.2-3.4) k/cumm Glucose 121 H (70-100) mg/dL Vital Signs Temperature 98.8 F 12/21/18 11:08 Temperature Source Tympanic 12/21/18 11:08 Pulse 72 12/21/18 11:08 Pulse Rhythm Regular 12/21/18 07:45 Respiratory Rate 18 12/21/18 11:08 Respiratory Effort 12/21/18 07:45 Respiratory Depth Normal 12/21/18 07:45 Respiratory Pattern Normal 12/21/18 07:45 Blood Pressure 132/80 12/21/18 11:08 Blood Pressure Position Sitting 12/18/18 12:53 Pulse Oximetry 96 12/21/18 11:08 Oxygen Delivery Method Room Air 12/21/18 11:08 Oxygen Flow Rate 0 12/21/18 11:08 Pain Level 6 12/21/18 14:03 Comment 12/19/18 11:28 Intake & Output 12/20/18 12/21/18 12/21/18 23:59 11:59 23:59 Intake Total 937.5 / 2646.500 1513.5 / 1513.5 Output Total 1100 / 1700 3000 / 3000 Balance -162.5 / 946.500 -1486.5 / -1486.5 Weight 202 lb 9.677 oz Intake: IV 937.5 / 2646.500 1513.5 / 1513.5 Oral 0 / 0 Output: Urine 1100 / 1700 3000 / 3000 Other: Urine Color Dark Sharon Light Sharon Urine Appearance Clear Clear Urine Odor Normal None Comment From previous voids in bathroom. Stool Size Large Stool Characteristics Soft Formed Black Emesis Description None Voiding Methods Toilet Toilet Urinal Laboratory Results WBC 9.01 k/cumm (4.4-10.8) 12/21/18 06:50 RBC 3.69 m/cumm (4.50-6.00) L 12/21/18 06:50 Hgb 12.5 g/dL (13.5-17.5) L 12/21/18 06:50 Hct 37.4 % (40.0-50.0) L 12/21/18 06:50 MCV 101.4 fL (80-95) H 12/21/18 06:50 MCH 33.9 pg (27.0-33.0) H 12/21/18 06:50 MCHC 33.4 g/dL (32.0-36.0) 12/21/18 06:50 RDW 12.5 % (11.8-14.1) 12/21/18 06:50 Plt Count 191 x1000/uL (130-400) 12/21/18 06:50 MPV 9.9 fL (8.0-11.0) 12/21/18 06:50 Immature Gran % 0.1 12/21/18 06:50 Neutrophils % 85.0 12/21/18 06:50 Lymphocytes % 6.3 12/21/18 06:50 Monocytes % 6.8 12/21/18 06:50 Eosinophils % 1.7 12/21/18 06:50 Basophils % 0.1 12/21/18 06:50 Absolute Neutrophils 7.66 k/cumm (1.2-6.7) H 12/21/18 06:50 Absolute Lymphocytes 0.57 k/cumm (1.2-3.4) L 12/21/18 06:50 Absolute Monocytes 0.61 k/cumm (0.11-0.7) 12/21/18 06:50 Absolute Eosinophils 0.15 k/cumm (0.0-0.7) 12/21/18 06:50 Absolute Basophils 0.01 k/cumm (0.0-0.2) 12/21/18 06:50 Sodium 140 mmol/L (136-145) 12/21/18 06:50 Potassium 4.4 mmol/L (3.5-5.1) 12/21/18 06:50 Chloride 106 mmol/L (98-107) 12/21/18 06:50 Carbon Dioxide 26.4 mmol/L (21.0-32.0) 12/21/18 06:50 Anion Gap 7.6 mmol/L (3-11) 12/21/18 06:50 BUN 10 mg/dL (7-18) 12/21/18 06:50 Creatinine 0.97 mg/dL (0.70-1.30) 12/21/18 06:50 Estimated GFR/1.73 m2 >= 60.00 (mL/min/1.73m2) 12/21/18 06:50 Glucose 121 mg/dL (70-100) H 12/21/18 06:50 Lactate 1.9 mmol/L (0.6-1.4) H 12/18/18 13:33 Calcium 8.6 mg/dL (8.5-10.1) 12/21/18 06:50 Magnesium 2.1 mg/dL (1.8-2.4) 12/21/18 06:50 Total Bilirubin 0.9 mg/dL (0.2-1.0) 12/18/18 13:10 AST 26 U/L (15-37) 12/18/18 13:10 ALT 50 U/L (12-78) 12/18/18 13:10 Alkaline Phosphatase 123 U/L (46-116) H 12/18/18 13:10 Total Protein 8.0 g/dL (6.4-8.2) 12/18/18 13:10 Albumin 4.4 g/dL (3.4-5.0) 12/18/18 13:10 Lipase 91 U/L (73-393) 12/18/18 13:10 Urine Color Yellow (Yellow) 12/18/18 16:45 Urine Clarity Clear 12/18/18 16:45 Urine pH 5.5 (5-8) 12/18/18 16:45 Ur Specific [place] <= 1.005 (1.005-1.025) 12/18/18 16:45 Urine Protein Negative mg/dL (Negative) 12/18/18 16:45 Urine Ketones 40 mg/dL (Negative) H 12/18/18 16:45 Urine Blood Negative (Negative) 12/18/18 16:45 Urine Nitrite Negative (Negative) 12/18/18 16:45 Urine Bilirubin Negative (Negative) 12/18/18 16:45 Urine Urobilinogen 0.2 EU/dL (Up TO 0.2) 12/18/18 16:45 Ur Leukocyte Esterase Negative (Negative) 12/18/18 16:45 Urine Glucose Negative mg/dL (Negative) 12/18/18 16:45
[2018-12-21 15:53] VITALS: BP 142/83; PULSE 79; RESP 16; TEMP 37; O2SAT 96
[2018-12-21 19:52] VITALS: BP 135/82; PULSE 75; RESP 18; TEMP 37.1; O2SAT 96
[2018-12-21] MEDS: Mometasone 220 MCG 14 DOSE INHALER IH (20:36)
[2018-12-21] MEDS: Atorvastatin 10 MG TAB PO (22:01)
[2018-12-21 23:46] VITALS: BP 124/75; PULSE 77; RESP 18; TEMP 36.5; O2SAT 96
[2018-12-22] VITALS (7 sets, daily range): BP systolic 113–132; BP diastolic 70–81; PULSE 69–96; RESP 18–19; TEMP 36.4–37; O2SAT 94–97
[2018-12-22] MEDS: CIPROFLOXACIN 400 MG/200 ML BAG 200 MG IVPB ×2 (01:24→14:27)
[2018-12-22] MEDS: ACETAMINOPHEN 1,000 MG/100 ML BTL 400 MG IVPB ×3 (01:24→17:59)
[2018-12-22] MEDS: Ketorolac 15 MG/ML VIAL IVP ×4 (01:25→20:20)
[2018-12-22] MEDS: DEXTROSE 5%-0.45% SALINE 1,000 ML 125 ML IV ×2 (02:46→13:47)
[2018-12-22] MEDS: HYDROmorphone 2 MG/ML VIAL IVP ×2 (03:44→11:34)
[2018-12-22] MEDS: Ondansetron 4 MG/2 ML VIAL IVP ×2 (03:44→09:40)
[2018-12-22] MEDS: MetroNIDAZOLE 500 MG/100 ML BAG 100 MG IVPB ×3 (05:15→21:19)
[2018-12-22 07:19] LABS: Abs Immature Grans 0.02 k/cumm (0.0-0.09); Absolute Basophil Count 0.02 k/cumm (0.0-0.2); Absolute Eosinophil Count 0.24 k/cumm (0.0-0.7); Absolute Lymphocyte Count 0.75 k/cumm (1.2-3.4); Absolute Monocyte Count 0.69 k/cumm (0.11-0.7); Absolute Neutrophil Count 6.62 k/cumm (1.2-6.7); Basophils % 0.2; Eosinophils % 2.9; HCT 35.8 % (40.0-50.0); HGB 12.3 g/dL (13.5-17.5); Immature Grans % 0.2; Mean Corp. HGB Concentration 34.4 g/dL (32.0-36.0); Mean Corpuscular Hemoglobin 34.2 pg (27.0-33.0); Mean Corpuscular Volume 99.4 fL (80-95); Mean Platelet Volume 9.7 fL (8.0-11.0); Monocytes % 8.3; Neutrophils % 79.4; Platelet Count 222 x1000/uL (130-400); RBC Distribution Width 12.3 % (11.8-14.1); White Blood Cell Count 8.34 k/cumm (4.4-10.8)
[2018-12-22 07:25] LABS: Anion Gap 9.1 mmol/L (3-11); BUN 9 mg/dL (7-18); CO2 25.9 mmol/L (21.0-32.0); CREATININE 0.83 mg/dL (0.70-1.30); Chloride 103 mmol/L (98-107); Glucose 122 mg/dL (70-100); Magnesium 1.9 mg/dL (1.8-2.4); Potassium 3.2 mmol/L (3.5-5.1); Sodium 138 mmol/L (136-145)
--- NOTE | 2018-12-22 08:15 | PDOC.CMPRO ---
- If Service Date Differs Date of service: 12/22/18 Time of Service: 08:15 Care Management Progress Note S/O:Beryn is having increase pain when CM enters the room. He is being medicated. He does not have an appetite. No changes in management today he continues to receive IV pain medication and antibiotics. A:58 year old male admitted with diverticulitis with perforation P:Berny will be discharged home when medically ready. Anticipate no services at time of discharge.Family to transport home.
--- NOTE | 2018-12-22 08:20 | CMPROGNOTE_ITS ---
- If Service Date Differs Date of service: 12/22/18 Time of Service: 08:15 Care Management Progress Note S/O:Berny is having increase pain when CM enters the room. He is being medicated. He does not have an appetite. No changes in management today he continues to receive IV pain medication and antibiotics. A:58 year old male admitted with diverticulitis with perforation P:Berny will be discharged home when medically ready. Anticipate no services at time of discharge.Family to transport home.
[2018-12-22] MEDS: Lisinopril 10 MG TAB PO (09:40)
[2018-12-22] MEDS: Pantoprazole 40 MG VIAL IVP (09:40)
[2018-12-22] MEDS: Normal Saline Flush 10 ML SYR IVP ×2 (09:41→15:43)
--- NOTE | 2018-12-22 10:38 | PGE_ITS ---
Documented by User: MAIRA Manuel 12/22/18 10:41 Date of Service Date of service: 12/22/18 Time of Service: 10:36 Assessment and Plan (1) Diverticulitis of large intestine with perforation: Current visit: Yes Status: Acute Continues to C/O back pain and abdominal pain today. Pt reports Dilaudid reduced his pain level. Encouraged ambulation and sitting in the chair to reduce/help back pain. DIET- Will start clear liquid diet today WBC normal today. Continue IV antibiotics Qualifiers: Diverticulitis bleeding: without bleeding Qualified Code(s): K57.20 - Diverticulitis of large intestine with perforation and abscess without bleeding Subjective Interval history since last seen: Patient reports that he continues to have low back pain and LLQ pain. He reports that he has had 4 BMs since yesterday. He denies nausea or vomiting. Exam Const General: cooperative, healthy appearing and comfortable Orientation: alert and oriented x3 GI Inspection: normal to inspection Palpation: soft, guarding in the LLQ and tender in the LLQ Auscultation: normal bowel sounds Objective Objective Clinical Data: Abnormal lab results 12/22/18 12/22/18 Range/Units 06:38 06:38 RBC 3.60 L (4.50-6.00) m/cumm Hgb 12.3 L (13.5-17.5) g/dL Hct 35.8 L (40.0-50.0) % MCV 99.4 H (80-95) fL MCH 34.2 H (27.0-33.0) pg Absolute Lymphocytes 0.75 L (1.2-3.4) k/cumm Potassium 3.2 L D (3.5-5.1) mmol/L Glucose 122 H (70-100) mg/dL Calcium 8.0 L (8.5-10.1) mg/dL Vital Signs Temperature 36.7 C 12/22/18 07:34 Temperature Source Tympanic 12/22/18 07:34 Pulse 75 12/22/18 07:34 Pulse Rhythm Regular 12/21/18 21:39 Respiratory Rate 18 12/22/18 07:34 Respiratory Effort Non-Labored 12/21/18 21:39 Respiratory Depth Normal 12/21/18 21:39 Respiratory Pattern Normal 12/21/18 21:39 Blood Pressure 123/74 12/22/18 07:34 Blood Pressure Position Sitting 12/18/18 12:53 Pulse Oximetry 95 12/22/18 07:34 Oxygen Delivery Method Room Air 12/22/18 07:34 Oxygen Flow Rate 0 12/22/18 07:34 Pain Level 10 12/22/18 10:12 Comment 12/19/18 11:28 Intake & Output 12/21/18 12/22/18 12/22/18 18:59 06:59 18:59 Intake Total 1287.5 / 2689.583 1402.083 / 2689.583 Output Total 1400 / 1400 Balance -112.5 / 2170.016 2249.083 / 1289.583 Weight 91.9 kg 91.7 kg Intake: IV 1287.5 / 2689.583 1402.083 / 2689.583 Oral 0 / 0 Output: Urine 1400 / 1400 Other: Urine Appearance Clear Clear Stool Size Large Stool Characteristics Soft Soft Formed Black Voiding Methods Toilet Toilet Laboratory Results WBC 8.34 k/cumm (4.4-10.8) 12/22/18 06:38 RBC 3.60 m/cumm (4.50-6.00) L 12/22/18 06:38 Hgb 12.3 g/dL (13.5-17.5) L 12/22/18 06:38 Hct 35.8 % (40.0-50.0) L 12/22/18 06:38 MCV 99.4 fL (80-95) H 12/22/18 06:38 MCH 34.2 pg (27.0-33.0) H 12/22/18 06:38 MCHC 34.4 g/dL (32.0-36.0) 12/22/18 06:38 RDW 12.3 % (11.8-14.1) 12/22/18 06:38 Plt Count 222 x1000/uL (130-400) 12/22/18 06:38 MPV 9.7 fL (8.0-11.0) 12/22/18 06:38 Immature Gran % 0.2 12/22/18 06:38 Neutrophils % 79.4 12/22/18 06:38 Lymphocytes % 9.0 12/22/18 06:38 Monocytes % 8.3 12/22/18 06:38 Eosinophils % 2.9 12/22/18 06:38 Basophils % 0.2 12/22/18 06:38 Absolute Neutrophils 6.62 k/cumm (1.2-6.7) 12/22/18 06:38 Absolute Lymphocytes 0.75 k/cumm (1.2-3.4) L 12/22/18 06:38 Absolute Monocytes 0.69 k/cumm (0.11-0.7) 12/22/18 06:38 Absolute Eosinophils 0.24 k/cumm (0.0-0.7) 12/22/18 06:38 Absolute Basophils 0.02 k/cumm (0.0-0.2) 12/22/18 06:38 Sodium 138 mmol/L (136-145) 12/22/18 06:38 Potassium 3.2 mmol/L (3.5-5.1) L D 12/22/18 06:38 Chloride 103 mmol/L (98-107) 12/22/18 06:38 Carbon Dioxide 25.9 mmol/L (21.0-32.0) 12/22/18 06:38 Anion Gap 9.1 mmol/L (3-11) 12/22/18 06:38 BUN 9 mg/dL (7-18) 12/22/18 06:38 Creatinine 0.83 mg/dL (0.70-1.30) 12/22/18 06:38 Estimated GFR/1.73 m2 >= 60.00 (mL/min/1.73m2) 12/22/18 06:38 Glucose 122 mg/dL (70-100) H 12/22/18 06:38 Lactate 1.9 mmol/L (0.6-1.4) H 12/18/18 13:33 Calcium 8.0 mg/dL (8.5-10.1) L 12/22/18 06:38 Magnesium 1.9 mg/dL (1.8-2.4) 12/22/18 06:38 Total Bilirubin 0.9 mg/dL (0.2-1.0) 12/18/18 13:10 AST 26 U/L (15-37) 12/18/18 13:10 ALT 50 U/L (12-78) 12/18/18 13:10 Alkaline Phosphatase 123 U/L (46-116) H 12/18/18 13:10 Total Protein 8.0 g/dL (6.4-8.2) 12/18/18 13:10 Albumin 4.4 g/dL (3.4-5.0) 12/18/18 13:10 Lipase 91 U/L (73-393) 12/18/18 13:10 Urine Color Yellow (Yellow) 12/18/18 16:45 Urine Clarity Clear 12/18/18 16:45 Urine pH 5.5 (5-8) 12/18/18 16:45 Ur Specific [place] <= 1.005 (1.005-1.025) 12/18/18 16:45 Urine Protein Negative mg/dL (Negative) 12/18/18 16:45 Urine Ketones 40 mg/dL (Negative) H 12/18/18 16:45 Urine Blood Negative (Negative) 12/18/18 16:45 Urine Nitrite Negative (Negative) 12/18/18 16:45 Urine Bilirubin Negative (Negative) 12/18/18 16:45 Urine Urobilinogen 0.2 EU/dL (Up TO 0.2) 12/18/18 16:45 Ur Leukocyte Esterase Negative (Negative) 12/18/18 16:45 Urine Glucose Negative mg/dL (Negative) 12/18/18 16:45 Documented by User: Brenda Perez MD 12/22/18 12:30
--- NOTE | 2018-12-22 12:30 | W.PM.PROGNOT ---
Date of Service Date of service: 12/22/18 Time of Service: 12:30 Assessment and Plan (1) Diverticulitis of large intestine with perforation: Current visit: Yes Status: Acute A\\ Diverticulitis with perforation. Small <2 cm fluid collection on repeat CT scan. Pain persistes. BP is normalized Not tachycardic like when he came in. P\\ Continue IV antibiotics and IV fluids He can try some clears Qualifiers: Diverticulitis bleeding: without bleeding Qualified Code(s): K57.20 - Diverticulitis of large intestine with perforation and abscess without bleeding Subjective Interval history since last seen: Doing OK. Had some sharp pain go across his abdomen and settle in his LLQ. He got some dilauded and feels better. He was passing flatus all night and this morning. None right now. Not hungry. Afebrile. WBC count normal. No bands. ? gas pain. No N/V. Has had several BM's. Exam GI Inspection: normal to inspection Palpation: soft and tender in the LLQ (tender, volunatry guarding, no rebound. I am able to push a lot harder then yesterday. ) Auscultation: hypoactive bowel sounds Objective Objective Clinical Data: Abnormal lab results 12/22/18 12/22/18 Range/Units 06:38 06:38 RBC 3.60 L (4.50-6.00) m/cumm Hgb 12.3 L (13.5-17.5) g/dL Hct 35.8 L (40.0-50.0) % MCV 99.4 H (80-95) fL MCH 34.2 H (27.0-33.0) pg Absolute Lymphocytes 0.75 L (1.2-3.4) k/cumm Potassium 3.2 L D (3.5-5.1) mmol/L Glucose 122 H (70-100) mg/dL Calcium 8.0 L (8.5-10.1) mg/dL Vital Signs Temperature 97.5 F L 12/22/18 11:57 Temperature Source Skin 12/22/18 11:57 Pulse 69 12/22/18 11:57 Pulse Rhythm Regular 12/21/18 21:39 Respiratory Rate 18 12/22/18 11:57 Respiratory Effort Non-Labored 12/21/18 21:39 Respiratory Depth Normal 12/21/18 21:39 Respiratory Pattern Normal 12/21/18 21:39 Blood Pressure 132/81 12/22/18 11:57 Blood Pressure Position Sitting 12/18/18 12:53 Pulse Oximetry 94 L 12/22/18 11:57 Oxygen Delivery Method Room Air 12/22/18 11:57 Oxygen Flow Rate 0 12/22/18 11:57 Pain Level 9 12/22/18 11:57 Comment 12/19/18 11:28 Intake & Output 12/21/18 12/22/18 12/22/18 23:59 11:59 23:59 Intake Total 1764.583 / 3378.083 825.000 / 825.000 Balance 1764.583 / 378.083 825.000 / 825.000 Weight 202 lb 2.622 oz Intake: IV 1764.583 / 3378.083 825.000 / 825.000 Other: Urine Appearance Clear Stool Characteristics Soft Voiding Methods Toilet Toilet Laboratory Results WBC 8.34 k/cumm (4.4-10.8) 12/22/18 06:38 RBC 3.60 m/cumm (4.50-6.00) L 12/22/18 06:38 Hgb 12.3 g/dL (13.5-17.5) L 12/22/18 06:38 Hct 35.8 % (40.0-50.0) L 12/22/18 06:38 MCV 99.4 fL (80-95) H 12/22/18 06:38 MCH 34.2 pg (27.0-33.0) H 12/22/18 06:38 MCHC 34.4 g/dL (32.0-36.0) 12/22/18 06:38 RDW 12.3 % (11.8-14.1) 12/22/18 06:38 Plt Count 222 x1000/uL (130-400) 12/22/18 06:38 MPV 9.7 fL (8.0-11.0) 12/22/18 06:38 Immature Gran % 0.2 12/22/18 06:38 Neutrophils % 79.4 12/22/18 06:38 Lymphocytes % 9.0 12/22/18 06:38 Monocytes % 8.3 12/22/18 06:38 Eosinophils % 2.9 12/22/18 06:38 Basophils % 0.2 12/22/18 06:38 Absolute Neutrophils 6.62 k/cumm (1.2-6.7) 12/22/18 06:38 Absolute Lymphocytes 0.75 k/cumm (1.2-3.4) L 12/22/18 06:38 Absolute Monocytes 0.69 k/cumm (0.11-0.7) 12/22/18 06:38 Absolute Eosinophils 0.24 k/cumm (0.0-0.7) 12/22/18 06:38 Absolute Basophils 0.02 k/cumm (0.0-0.2) 12/22/18 06:38 Sodium 138 mmol/L (136-145) 12/22/18 06:38 Potassium 3.2 mmol/L (3.5-5.1) L D 12/22/18 06:38 Chloride 103 mmol/L (98-107) 12/22/18 06:38 Carbon Dioxide 25.9 mmol/L (21.0-32.0) 12/22/18 06:38 Anion Gap 9.1 mmol/L (3-11) 12/22/18 06:38 BUN 9 mg/dL (7-18) 12/22/18 06:38 Creatinine 0.83 mg/dL (0.70-1.30) 12/22/18 06:38 Estimated GFR/1.73 m2 >= 60.00 (mL/min/1.73m2) 12/22/18 06:38 Glucose 122 mg/dL (70-100) H 12/22/18 06:38 Lactate 1.9 mmol/L (0.6-1.4) H 12/18/18 13:33 Calcium 8.0 mg/dL (8.5-10.1) L 12/22/18 06:38 Magnesium 1.9 mg/dL (1.8-2.4) 12/22/18 06:38 Total Bilirubin 0.9 mg/dL (0.2-1.0) 12/18/18 13:10 AST 26 U/L (15-37) 12/18/18 13:10 ALT 50 U/L (12-78) 12/18/18 13:10 Alkaline Phosphatase 123 U/L (46-116) H 12/18/18 13:10 Total Protein 8.0 g/dL (6.4-8.2) 12/18/18 13:10 Albumin 4.4 g/dL (3.4-5.0) 12/18/18 13:10 Lipase 91 U/L (73-393) 12/18/18 13:10 Urine Color Yellow (Yellow) 12/18/18 16:45 Urine Clarity Clear 12/18/18 16:45 Urine pH 5.5 (5-8) 12/18/18 16:45 Ur Specific [place] <= 1.005 (1.005-1.025) 12/18/18 16:45 Urine Protein Negative mg/dL (Negative) 12/18/18 16:45 Urine Ketones 40 mg/dL (Negative) H 12/18/18 16:45 Urine Blood Negative (Negative) 12/18/18 16:45 Urine Nitrite Negative (Negative) 12/18/18 16:45 Urine Bilirubin Negative (Negative) 12/18/18 16:45 Urine Urobilinogen 0.2 EU/dL (Up TO 0.2) 12/18/18 16:45 Ur Leukocyte Esterase Negative (Negative) 12/18/18 16:45 Urine Glucose Negative mg/dL (Negative) 12/18/18 16:45
[2018-12-22] MEDS: POTASSIUM CHLORIDE 10 MEQ/100 ML BAG 100 MEQ IVPB ×2 (13:09→16:50)
[2018-12-22] MEDS: Enoxaparin 40 MG/0.4 ML SYR SC (15:43)
[2018-12-22] MEDS: Mometasone 220 MCG 14 DOSE INHALER IH (20:20)
[2018-12-22] MEDS: Atorvastatin 10 MG TAB PO (21:19)
[2018-12-23] VITALS (7 sets, daily range): BP systolic 118–136; BP diastolic 74–83; PULSE 70–88; RESP 16–18; TEMP 36.6–37.6; O2SAT 94–99
[2018-12-23] MEDS: Ketorolac 15 MG/ML VIAL IVP ×3 (01:45→21:45)
[2018-12-23] MEDS: ACETAMINOPHEN 1,000 MG/100 ML BTL 400 MG IVPB ×3 (01:46→17:26)
[2018-12-23] MEDS: CIPROFLOXACIN 400 MG/200 ML BAG 200 MG IVPB ×2 (01:47→13:24)
[2018-12-23] MEDS: DEXTROSE 5%-0.45% SALINE 1,000 ML 125 ML IV ×2 (01:56→12:41)
[2018-12-23] MEDS: MetroNIDAZOLE 500 MG/100 ML BAG 100 MG IVPB ×3 (05:24→22:51)
[2018-12-23 06:43] LABS: Abs Immature Grans 0.06 k/cumm (0.0-0.09); Absolute Eosinophil Count 0.11 k/cumm (0.0-0.7); Absolute Lymphocyte Count 0.66 k/cumm (1.2-3.4); Absolute Monocyte Count 0.95 k/cumm (0.11-0.7); Basophils % 0.2; Eosinophils % 0.9; HCT 37.9 % (40.0-50.0); HGB 13.2 g/dL (13.5-17.5); Immature Grans % 0.5; Lymphocytes % 5.2; Mean Corp. HGB Concentration 34.8 g/dL (32.0-36.0); Mean Corpuscular Hemoglobin 34.5 pg (27.0-33.0); Mean Platelet Volume 9.5 fL (8.0-11.0); Monocytes % 7.5; Neutrophils % 85.7; Platelet Count 235 x1000/uL (130-400); RBC 3.83 m/cumm (4.50-6.00); RBC Distribution Width 12.7 % (11.8-14.1); White Blood Cell Count 12.69 k/cumm (4.4-10.8)
[2018-12-23 06:48] LABS: Absolute Basophil Count 0.03 k/cumm (0.0-0.2); Absolute Neutrophil Count 10.88 k/cumm (1.2-6.7)
[2018-12-23 07:03] LABS: BUN 9 mg/dL (7-18); CREATININE 0.92 mg/dL (0.70-1.30); Chloride 104 mmol/L (98-107); Glucose 127 mg/dL (70-100); Magnesium 1.7 mg/dL (1.8-2.4); Potassium 3.1 mmol/L (3.5-5.1); Sodium 137 mmol/L (136-145)
[2018-12-23 07:24] LABS: Anion Gap 9.2 mmol/L (3-11); CO2 23.8 mmol/L (21.0-32.0)
[2018-12-23] MEDS: Pantoprazole 40 MG VIAL IVP (08:40)
[2018-12-23] MEDS: Lisinopril 10 MG TAB PO (08:40)
[2018-12-23] MEDS: Normal Saline Flush 10 ML SYR IVP ×3 (08:41→21:45)
--- NOTE | 2018-12-23 09:17 | W.PM.PROGNOT ---
Documented by User: MAIRA Manuel 12/23/18 15:27 Date of Service Date of service: 12/23/18 Time of Service: 09:18 Assessment and Plan (1) Diverticulitis of large intestine with perforation: Current visit: Yes Status: Acute LLQ abdominal pain continues. Tolerating PO water. PAIN- Currently well managed. DIET- Continue clear liquids WBC elevated today at 12.69 (up from 8.34 yesterday 12/22) Hypokalemia- K+ 3.1 today (down from 3.2 yesterday) after having received 10 meq x 2. ? Dilutional Continue IV antibiotics (Cipo and flagyl) Qualifiers: Diverticulitis bleeding: without bleeding Qualified Code(s): K57.20 - Diverticulitis of large intestine with perforation and abscess without bleeding Subjective Interval history since last seen: I am feeling better this morning, I was able to sleep pretty well over night. He reports that he had loose BMs last night, which were painful. Denies hematochezia. He has been drinking water and has been tolerating this well without any nausea or vomiting. He has not tried anything else from his dinner tray. Exam Const General: cooperative and comfortable Orientation: alert and oriented x3 GI Palpation: soft, guarding in the LLQ and tender in the LLQ Auscultation: hypoactive bowel sounds Objective Objective Clinical Data: Abnormal lab results 12/23/18 12/23/18 Range/Units 06:23 06:23 WBC 12.69 H D (4.4-10.8) k/cumm RBC 3.83 L (4.50-6.00) m/cumm Hgb 13.2 L (13.5-17.5) g/dL Hct 37.9 L (40.0-50.0) % MCV 99.0 H (80-95) fL MCH 34.5 H (27.0-33.0) pg Absolute Neutrophils 10.88 H (1.2-6.7) k/cumm Absolute Lymphocytes 0.66 L (1.2-3.4) k/cumm Absolute Monocytes 0.95 H (0.11-0.7) k/cumm Potassium 3.1 L (3.5-5.1) mmol/L Glucose 127 H (70-100) mg/dL Calcium 8.0 L (8.5-10.1) mg/dL Magnesium 1.7 L (1.8-2.4) mg/dL Vital Signs Temperature 37 C 12/23/18 07:05 Temperature Source Tympanic 12/23/18 07:05 Pulse 80 12/23/18 07:05 Pulse Rhythm Regular 12/22/18 20:46 Respiratory Rate 16 12/23/18 07:05 Respiratory Effort Non-Labored 12/22/18 20:46 Respiratory Depth Normal 12/22/18 20:46 Respiratory Pattern Normal 12/22/18 20:46 Blood Pressure 136/83 12/23/18 07:05 Blood Pressure Position Sitting 12/18/18 12:53 Pulse Oximetry 94 L 12/23/18 07:05 Oxygen Delivery Method Room Air 12/23/18 07:05 Oxygen Flow Rate 0 12/23/18 07:05 Pain Level 0 12/23/18 03:30 Comment 12/23/18 03:30 Intake & Output 12/22/18 12/23/18 12/23/18 18:59 06:59 18:59 Intake Total 1939.584 / 3297.917 1358.333 / 3297.917 120 / 120 Output Total 500 / 500 Balance 1439.584 / 2797.917 1358.333 / 2797.917 120 / 120 Weight 91.7 kg 92.3 kg Intake: IV 1939.584 / 2897.917 958.333 / 2897.917 Oral 400 / 400 120 / 120 Output: Urine 500 / 500 Other: Urine Color Dark [place] Urine Appearance Clear Clear Urine Odor Normal Comment urine not assessed at this time; pt is voiding ad andres in bathroom Stool Size Small Stool Characteristics Mucoid Voiding Methods Toilet Laboratory Results WBC 12.69 k/cumm (4.4-10.8) H D 12/23/18 06:23 RBC 3.83 m/cumm (4.50-6.00) L 12/23/18 06:23 Hgb 13.2 g/dL (13.5-17.5) L 12/23/18 06:23 Hct 37.9 % (40.0-50.0) L 12/23/18 06:23 MCV 99.0 fL (80-95) H 12/23/18 06:23 MCH 34.5 pg (27.0-33.0) H 12/23/18 06:23 MCHC 34.8 g/dL (32.0-36.0) 12/23/18 06:23 RDW 12.7 % (11.8-14.1) 12/23/18 06:23 Plt Count 235 x1000/uL (130-400) 12/23/18 06:23 MPV 9.5 fL (8.0-11.0) 12/23/18 06:23 Immature Gran % 0.5 12/23/18 06:23 Neutrophils % 85.7 12/23/18 06:23 Lymphocytes % 5.2 12/23/18 06:23 Monocytes % 7.5 12/23/18 06:23 Eosinophils % 0.9 12/23/18 06:23 Basophils % 0.2 12/23/18 06:23 Absolute Neutrophils 10.88 k/cumm (1.2-6.7) H 12/23/18 06:23 Absolute Lymphocytes 0.66 k/cumm (1.2-3.4) L 12/23/18 06:23 Absolute Monocytes 0.95 k/cumm (0.11-0.7) H 12/23/18 06:23 Absolute Eosinophils 0.11 k/cumm (0.0-0.7) 12/23/18 06:23 Absolute Basophils 0.03 k/cumm (0.0-0.2) 12/23/18 06:23 Sodium 137 mmol/L (136-145) 12/23/18 06:23 Potassium 3.1 mmol/L (3.5-5.1) L 12/23/18 06:23 Chloride 104 mmol/L (98-107) 12/23/18 06:23 Carbon Dioxide 23.8 mmol/L (21.0-32.0) 12/23/18 06:23 Anion Gap 9.2 mmol/L (3-11) 12/23/18 06:23 BUN 9 mg/dL (7-18) 12/23/18 06:23 Creatinine 0.92 mg/dL (0.70-1.30) 12/23/18 06:23 Estimated GFR/1.73 m2 >= 60.00 (mL/min/1.73m2) 12/23/18 06:23 Glucose 127 mg/dL (70-100) H 12/23/18 06:23 Lactate 1.9 mmol/L (0.6-1.4) H 12/18/18 13:33 Calcium 8.0 mg/dL (8.5-10.1) L 12/23/18 06:23 Magnesium 1.7 mg/dL (1.8-2.4) L 12/23/18 06:23 Total Bilirubin 0.9 mg/dL (0.2-1.0) 12/18/18 13:10 AST 26 U/L (15-37) 12/18/18 13:10 ALT 50 U/L (12-78) 12/18/18 13:10 Alkaline Phosphatase 123 U/L (46-116) H 12/18/18 13:10 Total Protein 8.0 g/dL (6.4-8.2) 12/18/18 13:10 Albumin 4.4 g/dL (3.4-5.0) 12/18/18 13:10 Lipase 91 U/L (73-393) 12/18/18 13:10 Urine Color Yellow (Yellow) 12/18/18 16:45 Urine Clarity Clear 12/18/18 16:45 Urine pH 5.5 (5-8) 12/18/18 16:45 Ur Specific [place] <= 1.005 (1.005-1.025) 12/18/18 16:45 Urine Protein Negative mg/dL (Negative) 12/18/18 16:45 Urine Ketones 40 mg/dL (Negative) H 12/18/18 16:45 Urine Blood Negative (Negative) 12/18/18 16:45 Urine Nitrite Negative (Negative) 12/18/18 16:45 Urine Bilirubin Negative (Negative) 12/18/18 16:45 Urine Urobilinogen 0.2 EU/dL (Up TO 0.2) 12/18/18 16:45 Ur Leukocyte Esterase Negative (Negative) 12/18/18 16:45 Urine Glucose Negative mg/dL (Negative) 12/18/18 16:45 Documented by User: Tete Lira DO 12/23/18 17:50 Assessment and Plan (1) Diverticulitis of large intestine with perforation: Current visit: Yes Status: Acute this is pt third episode this year. Pt is playground supervisor caregiver for . pt is feeling better this evening- less pain and distention. d/w pt care and diet at home consider elective resection as continues to be having problems. Still having frequent liquid BM. this may occur for some time. Start probiotics cont supportive care pt dislikes cl liq but is not having as much pain- advance to full liquids. Qualifiers: Diverticulitis bleeding: without bleeding Qualified Code(s): K57.20 - Diverticulitis of large intestine with perforation and abscess without bleeding
--- NOTE | 2018-12-23 11:42 | PHARADMIT ---
Addendum entered by Deric Cantu III 12/24/18 11:12: Pharmacy Note Subjective Continues to improve, Objective VS-OK, WBC, H&H-SAME, Had small BM Assessment no changes Plan Probable discharge soon. Original Note: Admission Pharmacy Clinical Review Diverticulitis with micoperforation Code Status Full Code Current Weight Wgt- 92.3 kg Renally Cleared and Narrow Therapeutic Index Meds CrCl~ 77 mL.min Meds-OK QTc Value / Action Taken NA BP Control, Fever BP- 121/74 Tmax- 37.0C Electrolytes reviewed Na- 17 K+3.1 Mag-1.7 DVT Prophylaxis Lovenox Opiate Usage / Scheduled Bowel Regimen Ordered No No Plt/SCr for Heparin / Enoxaparin Plts-235 SCr-0.92 INR for Warfarin na H/H stable, WBC/Bands H&H- 13.2/37..9 WBC- 12.69 Antibiotic appropriateness Cipro IV Flagyl Cultures and Sensitivities none Surgical ABX d/c within 24 hr na DM control / Insulin Dosing BG-127 Heart Failure (Check EF%) (CHARLY's, B-Block, Diuretics) Lisinopril IV to PO Switch No Home Meds Reviewed Yes Home Meds Not Ordered Migraine med, Lipitor, Flovent, Meloxicam, Ibuprofen, Zanaflx, Combivent Comments
--- NOTE | 2018-12-23 13:46 | PDOC.CMPRO ---
- If Service Date Differs Date of service: 12/23/18 Time of Service: 13:47 Care Management Progress Note S/O: Berny is up to the restroom this morning when CM attempts to visit. Per provider note, he is feeling somewhat better today. CM to attempt to meet with Berny again this afternoon. A:58 year old male admitted with diverticulitis with perforation P:Berny will be discharged home when medically ready. Anticipate no services at time of discharge.Family to transport home.
--- NOTE | 2018-12-23 14:45 | CHAPLAIN ---
Berny said he believes he's turned a corner, today, following a not very good day yesterday. His daughter is arriving from [place] and will be able to care for his . This has been a concern for Berny as he is the primary caregiver for his . Her brother has been visiting her and helping out until their daughter was able to get here. Berny seems to have a sense of relief about his daughter arriving to help out.
[2018-12-23] MEDS: Enoxaparin 40 MG/0.4 ML SYR SC (15:36)
[2018-12-23] MEDS: POTASSIUM CHLORIDE 10 MEQ/100 ML BAG 100 MEQ IVPB ×3 (18:21→21:37)
[2018-12-23] MEDS: Normal Saline 500 ML 115 ML IV (19:15)
[2018-12-23] MEDS: Atorvastatin 10 MG TAB PO (20:42)
[2018-12-23] MEDS: Lactobacillus Acidophilus CAP 1 CAP PO (20:42)
[2018-12-23] MEDS: Mometasone 220 MCG 14 DOSE INHALER IH (20:45)
[2018-12-24] MEDS: ACETAMINOPHEN 1,000 MG/100 ML BTL 400 MG IVPB ×3 (01:25→18:02)
[2018-12-24] MEDS: CIPROFLOXACIN 400 MG/200 ML BAG 200 MG IVPB ×2 (01:54→13:29)
[2018-12-24 04:19] VITALS: BP 130/79; PULSE 80; RESP 16; TEMP 36.9; O2SAT 97
[2018-12-24] MEDS: MetroNIDAZOLE 500 MG/100 ML BAG 100 MG IVPB ×2 (05:39→14:56)
[2018-12-24 07:05] VITALS: BP 147/83; PULSE 79; RESP 14; TEMP 37.1; O2SAT 96
[2018-12-24] MEDS: Lisinopril 10 MG TAB PO (08:57)
[2018-12-24] MEDS: Pantoprazole 40 MG VIAL IVP (08:57)
[2018-12-24] MEDS: Normal Saline Flush 10 ML SYR IVP ×3 (08:58→19:30)
--- NOTE | 2018-12-24 09:12 | PDOC.CMPRO ---
- If Service Date Differs Date of service: 12/24/18 Time of Service: 09:12 Care Management Progress Note S/O:Berny is engaged with CM during assessment. He is taking some oral, his diet has been advanced to full liquid. He remains on IV antibiotics. Anticipate no change in status today. CM to continue to provide support to patient discharge planning. A:58 year old male admitted with diverticulitis with perforation P:Berny will be discharged home when medically ready. Anticipate no services at time of discharge. Family to transport home.
--- NOTE | 2018-12-24 09:56 | W.PM.PROGNOT ---
Documented by User: MAIRA Manuel 12/24/18 10:19 Date of Service Date of service: 12/24/18 Time of Service: 09:56 Assessment and Plan (1) Diverticulitis of large intestine with perforation: Current visit: Yes Status: Acute LLQ abdominal pain continues. Tolerating PO water and clear liquids. Has had multiple small, soft BMs. PAIN- Currently well managed. DIET- Continue full liquids WBC elevated yesterday, Labs PENDING Hypokalemia- Labs PENDING Continue IV antibiotics (Cipo and flagyl) Qualifiers: Diverticulitis bleeding: without bleeding Qualified Code(s): K57.20 - Diverticulitis of large intestine with perforation and abscess without bleeding Subjective Interval history since last seen: Mr. Gamboa reports that he feels like he continues to improve. He had 4 very small, soft BMs last night into this morning. Denies fevers, chills. His abdominal pain continues to be sore, but more tolerable. Exam Const General: cooperative and comfortable Orientation: alert and oriented x3 GI Palpation: soft, guarding in the LUQ and tender in the LLQ Auscultation: normal bowel sounds Objective Objective Clinical Data: Vital Signs Temperature 37.1 C 12/24/18 07:05 Temperature Source Tympanic 12/24/18 07:05 Pulse 79 12/24/18 07:05 Pulse Rhythm Regular 12/24/18 09:22 Respiratory Rate 14 12/24/18 07:05 Respiratory Effort Accessory Muscle Use 12/24/18 09:22 Respiratory Depth Normal 12/24/18 09:22 Respiratory Pattern Normal 12/24/18 09:22 Blood Pressure 147/83 H 12/24/18 07:05 Blood Pressure Position Sitting 12/18/18 12:53 Pulse Oximetry 96 12/24/18 07:05 Oxygen Delivery Method Room Air 12/24/18 07:05 Oxygen Flow Rate 0 12/24/18 07:05 Pain Level 2 12/24/18 01:25 Comment 12/23/18 03:30 Intake & Output 12/23/18 12/24/18 12/24/18 18:59 06:59 18:59 Intake Total 2986.667 / 3640.000 653.333 / 3640.000 Balance 2986.667 / 3640.000 653.333 / 3640.000 Weight 92.3 kg 93.8 kg Intake: IV 2216.667 / 2870.000 653.333 / 2870.000 Oral 770 / 770 Other: Urine Appearance Clear Clear Comment pt voiding independently; urine not assessed. pt voiding independently in the toilet Stool Size Small Stool Characteristics Liquid Voiding Methods Toilet Toilet Laboratory Results WBC 12.69 k/cumm (4.4-10.8) H D 12/23/18 06:23 RBC 3.83 m/cumm (4.50-6.00) L 12/23/18 06:23 Hgb 13.2 g/dL (13.5-17.5) L 12/23/18 06:23 Hct 37.9 % (40.0-50.0) L 12/23/18 06:23 MCV 99.0 fL (80-95) H 12/23/18 06:23 MCH 34.5 pg (27.0-33.0) H 12/23/18 06:23 MCHC 34.8 g/dL (32.0-36.0) 12/23/18 06:23 RDW 12.7 % (11.8-14.1) 12/23/18 06:23 Plt Count 235 x1000/uL (130-400) 12/23/18 06:23 MPV 9.5 fL (8.0-11.0) 12/23/18 06:23 Immature Gran % 0.5 12/23/18 06:23 Neutrophils % 85.7 12/23/18 06:23 Lymphocytes % 5.2 12/23/18 06:23 Monocytes % 7.5 12/23/18 06:23 Eosinophils % 0.9 12/23/18 06:23 Basophils % 0.2 12/23/18 06:23 Absolute Neutrophils 10.88 k/cumm (1.2-6.7) H 12/23/18 06:23 Absolute Lymphocytes 0.66 k/cumm (1.2-3.4) L 12/23/18 06:23 Absolute Monocytes 0.95 k/cumm (0.11-0.7) H 12/23/18 06:23 Absolute Eosinophils 0.11 k/cumm (0.0-0.7) 12/23/18 06:23 Absolute Basophils 0.03 k/cumm (0.0-0.2) 12/23/18 06:23 Sodium 137 mmol/L (136-145) 12/23/18 06:23 Potassium 3.1 mmol/L (3.5-5.1) L 12/23/18 06:23 Chloride 104 mmol/L (98-107) 12/23/18 06:23 Carbon Dioxide 23.8 mmol/L (21.0-32.0) 12/23/18 06:23 Anion Gap 9.2 mmol/L (3-11) 12/23/18 06:23 BUN 9 mg/dL (7-18) 12/23/18 06:23 Creatinine 0.92 mg/dL (0.70-1.30) 12/23/18 06:23 Estimated GFR/1.73 m2 >= 60.00 (mL/min/1.73m2) 12/23/18 06:23 Glucose 127 mg/dL (70-100) H 12/23/18 06:23 Lactate 1.9 mmol/L (0.6-1.4) H 12/18/18 13:33 Calcium 8.0 mg/dL (8.5-10.1) L 12/23/18 06:23 Magnesium 1.7 mg/dL (1.8-2.4) L 12/23/18 06:23 Total Bilirubin 0.9 mg/dL (0.2-1.0) 12/18/18 13:10 AST 26 U/L (15-37) 12/18/18 13:10 ALT 50 U/L (12-78) 12/18/18 13:10 Alkaline Phosphatase 123 U/L (46-116) H 12/18/18 13:10 Total Protein 8.0 g/dL (6.4-8.2) 12/18/18 13:10 Albumin 4.4 g/dL (3.4-5.0) 12/18/18 13:10 Lipase 91 U/L (73-393) 12/18/18 13:10 Urine Color Yellow (Yellow) 12/18/18 16:45 Urine Clarity Clear 12/18/18 16:45 Urine pH 5.5 (5-8) 12/18/18 16:45 Ur Specific [place] <= 1.005 (1.005-1.025) 12/18/18 16:45 Urine Protein Negative mg/dL (Negative) 12/18/18 16:45 Urine Ketones 40 mg/dL (Negative) H 12/18/18 16:45 Urine Blood Negative (Negative) 12/18/18 16:45 Urine Nitrite Negative (Negative) 12/18/18 16:45 Urine Bilirubin Negative (Negative) 12/18/18 16:45 Urine Urobilinogen 0.2 EU/dL (Up TO 0.2) 12/18/18 16:45 Ur Leukocyte Esterase Negative (Negative) 12/18/18 16:45 Urine Glucose Negative mg/dL (Negative) 12/18/18 16:45 Documented by User: Tete Lira DO 12/26/18 11:32 Assessment and Plan (1) Diverticulitis of large intestine with perforation: Current visit: Yes Status: Acute pt seen adn examined agree w/ above will change abx and see if this makes any difference in pain/wbc no immediate need for surgical intervention Qualifiers: Diverticulitis bleeding: without bleeding Qualified Code(s): K57.20 - Diverticulitis of large intestine with perforation and abscess without bleeding
[2018-12-24 11:00] VITALS: BP 130/82; PULSE 88; RESP 16; TEMP 37.2; O2SAT 96
[2018-12-24 11:08] LABS: Abs Immature Grans 0.16 k/cumm (0.0-0.09); Absolute Basophil Count 0.02 k/cumm (0.0-0.2); Absolute Eosinophil Count 0.11 k/cumm (0.0-0.7); Absolute Lymphocyte Count 0.66 k/cumm (1.2-3.4); Absolute Monocyte Count 0.73 k/cumm (0.11-0.7); Basophils % 0.2; Eosinophils % 0.9; HCT 37.7 % (40.0-50.0); Immature Grans % 1.3; Lymphocytes % 5.4; Mean Corp. HGB Concentration 34.5 g/dL (32.0-36.0); Mean Corpuscular Volume 98.7 fL (80-95); Mean Platelet Volume 9.7 fL (8.0-11.0); Neutrophils % 86.2; Platelet Count 272 x1000/uL (130-400); RBC 3.82 m/cumm (4.50-6.00); White Blood Cell Count 12.22 k/cumm (4.4-10.8)
[2018-12-24 11:11] LABS: Absolute Neutrophil Count 10.53 k/cumm (1.2-6.7)
[2018-12-24 11:12] LABS: Anion Gap 9.9 mmol/L (3-11); BUN 13 mg/dL (7-18); CO2 23.1 mmol/L (21.0-32.0); CREATININE 0.91 mg/dL (0.70-1.30); Calcium 8.2 mg/dL (8.5-10.1); Chloride 102 mmol/L (98-107); Glucose 175 mg/dL (70-100); Potassium 3.2 mmol/L (3.5-5.1); Sodium 135 mmol/L (136-145)
[2018-12-24] MEDS: Ketorolac 15 MG/ML VIAL IVP (15:05)
[2018-12-24] MEDS: Enoxaparin 40 MG/0.4 ML SYR SC (15:05)
[2018-12-24 15:15] VITALS: BP 133/83; PULSE 86; RESP 14; TEMP 37.4; O2SAT 95
[2018-12-24] MEDS: IMIPENEM/CILASTATIN 500 MG in Normal Saline 100 ML 200 MG IVPB (18:02)
[2018-12-24 19:25] VITALS: BP 131/80; PULSE 82; RESP 18; TEMP 37.3; O2SAT 95
[2018-12-24] MEDS: Mometasone 220 MCG 14 DOSE INHALER IH (19:30)
[2018-12-24] MEDS: Atorvastatin 10 MG TAB PO (21:27)
[2018-12-24] MEDS: HYDROcodone 5/Acetaminophen 325 TAB PO (21:28)
[2018-12-25] VITALS (8 sets, daily range): BP systolic 122–136; BP diastolic 66–84; PULSE 68–84; RESP 18–20; TEMP 36.6–37.5; O2SAT 95–98
[2018-12-25] MEDS: ACETAMINOPHEN 1,000 MG/100 ML BTL 400 MG IVPB ×3 (02:08→17:13)
[2018-12-25] MEDS: Normal Saline 500 ML 20 ML IV (02:09)
[2018-12-25] MEDS: IMIPENEM/CILASTATIN 500 MG in Normal Saline 100 ML 200 MG IVPB ×3 (02:09→17:55)
[2018-12-25 07:23] LABS: Absolute Basophil Count 0.02 k/cumm (0.0-0.2); Absolute Eosinophil Count 0.13 k/cumm (0.0-0.7); Absolute Lymphocyte Count 1.12 k/cumm (1.2-3.4); Absolute Monocyte Count 1.04 k/cumm (0.11-0.7); Basophils % 0.2; Eosinophils % 1.1; HCT 39.1 % (40.0-50.0); HGB 13.2 g/dL (13.5-17.5); Immature Grans % 1.7; Lymphocytes % 9.4; Mean Corp. HGB Concentration 33.8 g/dL (32.0-36.0); Mean Corpuscular Hemoglobin 33.7 pg (27.0-33.0); Mean Corpuscular Volume 99.7 fL (80-95); Mean Platelet Volume 9.6 fL (8.0-11.0); Monocytes % 8.7; Neutrophils % 78.9; Platelet Count 349 x1000/uL (130-400); RBC 3.92 m/cumm (4.50-6.00); RBC Distribution Width 13.2 % (11.8-14.1); White Blood Cell Count 11.91 k/cumm (4.4-10.8)
[2018-12-25] MEDS: Ketorolac 15 MG/ML VIAL IVP ×2 (08:16→17:54)
[2018-12-25] MEDS: Lisinopril 10 MG TAB PO (08:17)
[2018-12-25] MEDS: Pantoprazole 40 MG VIAL IVP (08:17)
[2018-12-25] MEDS: Normal Saline Flush 10 ML SYR IVP ×2 (08:17→17:55)
--- NOTE | 2018-12-25 09:07 | PDOC.CMPRO ---
- If Service Date Differs Date of service: 12/25/18 Time of Service: 09:07 Care Management Progress Note S/O:Berny remains on Imipenem IV every 8 hours. He is receiving oral pain management his last dose of IV hydromorphone was on 12/22/18 A:58 year old male admitted with diverticulitis with perforation P:Berny will be discharged home when medically ready. Anticipate no services at time of discharge. Family to transport home.
--- NOTE | 2018-12-25 11:49 | PGE_ITS ---
Date of Service Date of service: 12/25/18 Time of Service: 11:49 Assessment and Plan (1) Diverticulitis of large intestine with perforation: Current visit: Yes Status: Acute pt has been at the same condition for about 48 hrs w/ no changes or improvement/worsening of pain and # BM and consistency. no changes despite escalation of abx. will wait another 24hrs (since changed abx). if changes in am- will d/c home w/ po abx for another week and f/u in clinic on thursday w/ [place] Qualifiers: Diverticulitis bleeding: without bleeding Qualified Code(s): K57.20 - Diverticulitis of large intestine with perforation and abscess without bleeding Subjective Interval history since last seen: pt feels about the same. no fever/chills. has lots of cramping on left side stil, wood right before bm. about 4-6 bm per day. no blood. maybe slt more formed. no cough. no cp or sob. no dysuria. no leg pain or swelling. He is up walking around. tolerating full liquids. no changes in pain or bm in the last 48hrs. changed abx yest and has had x2 doses. pt very compliant. defn no deterioration that would suggest abscess or perforation. d/w pt if there are no changes in am than prob send home on oral abx. He will prob have diarrhea/loose bowels for a few weeks. Hopefully cramping should improve in 1 wks time Exam Const General: cooperative, healthy appearing, comfortable, no acute distress, well developed and well groomed Nutritional Appearance: average body habitus and well nourished Orientation: alert, awake and oriented x3 [facility] Head: normal to inspection, normocephalic and atraumatic Ears: hearing grossly normal bilaterally and external ears normal General nose exam: external nose normal Face and sinus: normal facial exam and sinuses nontender Mouth: oral mucosae normal, lip normal, tongue normal and moist mucous membranes Teeth and gingiva: dentition normal Eyes General: appearance normal, both eyes and all related structures Conjunctivae: conjunctivae normal Sclera: sclerae normal Pupils: PERRL Neck Neck: normal visual inspection and full ROM Chest Chest: normal inspection of the chest Resp Effort & Inspection: normal respiratory effort, able to speak in complete sentences, no cough, no nasal flaring, not tachypneic and no use of accessory muscles Auscultation: clear to auscultation bilaterally, no rales, no rhonchi and no wheezes Cardio Jugular venous pressure: no JVD Rate: regular rate Rhythm: regular rhythm GI Inspection: normal to inspection, no edema, distended (mild and same ) and obesity (mild) Palpation: soft, no masses, tender (LLQ. no radiation ) and No ascites Auscultation: normal bowel sounds Other: no peritonitis. Skin General skin exam: no rashes or lesions noted Trauma: no lacerations or abrasions Neuro General: alert, oriented x3, oriented, gait normal, moves all extremities, no focal motor deficits and CN's II-XI intact bilaterally Cognition: normal cognition Speech: speech normal Gait: normal gait Motor: muscle tone normal throughout Extrem General: normal to inspection, full ROM and no clubbing, cyanosis or edema Psych Appearance: grossly normal and well kempt Mental Status: mental status grossly normal Speech and Movement: speech and movement normal Affect: normal affect Objective Objective Clinical Data: Abnormal lab results 12/25/18 Range/Units 06:20 WBC 11.91 H (4.4-10.8) k/cumm RBC 3.92 L (4.50-6.00) m/cumm Hgb 13.2 L (13.5-17.5) g/dL Hct 39.1 L (40.0-50.0) % MCV 99.7 H (80-95) fL MCH 33.7 H (27.0-33.0) pg Absolute Neutrophils 9.40 H (1.2-6.7) k/cumm Absolute Lymphocytes 1.12 L (1.2-3.4) k/cumm Absolute Monocytes 1.04 H (0.11-0.7) k/cumm Vital Signs Temperature 37.4 C 12/25/18 07:25 Temperature Source Tympanic 12/25/18 07:25 Pulse 80 12/25/18 07:25 Pulse Rhythm Regular 12/25/18 11:04 Respiratory Rate 20 12/25/18 07:25 Respiratory Effort 12/25/18 11:04 Respiratory Depth Normal 12/25/18 11:04 Respiratory Pattern Normal 12/25/18 11:04 Blood Pressure 132/79 12/25/18 07:25 Blood Pressure Position Sitting 12/18/18 12:53 Pulse Oximetry 95 12/25/18 07:25 Oxygen Delivery Method Room Air 12/25/18 07:25 Oxygen Flow Rate 0 12/25/18 07:25 Pain Level 5 12/25/18 08:16 Comment 12/23/18 03:30 Intake & Output 12/24/18 12/24/18 12/25/18 11:59 23:59 11:59 Intake Total 750 / 1270 520 / 1270 600 / 600 Balance 750 / 1270 520 / 1270 600 / 600 Weight 93.8 kg 93.9 kg Intake: IV 500 / 900 400 / 900 200 / 200 Oral 250 / 370 120 / 370 400 / 400 Other: Urine Color Pale Yellow Urine Appearance Clear Clear Clear Urine Odor None Comment voids in the bathroom Stool Size Small Small Stool Characteristics Liquid Soft Laboratory Results WBC 11.91 k/cumm (4.4-10.8) H 12/25/18 06:20 RBC 3.92 m/cumm (4.50-6.00) L 12/25/18 06:20 Hgb 13.2 g/dL (13.5-17.5) L 12/25/18 06:20 Hct 39.1 % (40.0-50.0) L 12/25/18 06:20 MCV 99.7 fL (80-95) H 12/25/18 06:20 MCH 33.7 pg (27.0-33.0) H 12/25/18 06:20 MCHC 33.8 g/dL (32.0-36.0) 12/25/18 06:20 RDW 13.2 % (11.8-14.1) 12/25/18 06:20 Plt Count 349 x1000/uL (130-400) 12/25/18 06:20 MPV 9.6 fL (8.0-11.0) 12/25/18 06:20 Immature Gran % 1.7 12/25/18 06:20 Neutrophils % 78.9 12/25/18 06:20 Lymphocytes % 9.4 12/25/18 06:20 Monocytes % 8.7 12/25/18 06:20 Eosinophils % 1.1 12/25/18 06:20 Basophils % 0.2 12/25/18 06:20 Absolute Neutrophils 9.40 k/cumm (1.2-6.7) H 12/25/18 06:20 Absolute Lymphocytes 1.12 k/cumm (1.2-3.4) L 12/25/18 06:20 Absolute Monocytes 1.04 k/cumm (0.11-0.7) H 12/25/18 06:20 Absolute Eosinophils 0.13 k/cumm (0.0-0.7) 12/25/18 06:20 Absolute Basophils 0.02 k/cumm (0.0-0.2) 12/25/18 06:20 Sodium 135 mmol/L (136-145) L 12/24/18 10:43 Potassium 3.2 mmol/L (3.5-5.1) L 12/24/18 10:43 Chloride 102 mmol/L (98-107) 12/24/18 10:43 Carbon Dioxide 23.1 mmol/L (21.0-32.0) 12/24/18 10:43 Anion Gap 9.9 mmol/L (3-11) 12/24/18 10:43 BUN 13 mg/dL (7-18) 12/24/18 10:43 Creatinine 0.91 mg/dL (0.70-1.30) 12/24/18 10:43 Estimated GFR/1.73 m2 >= 60.00 (mL/min/1.73m2) 12/24/18 10:43 Glucose 175 mg/dL (70-100) H 12/24/18 10:43 Lactate 1.9 mmol/L (0.6-1.4) H 12/18/18 13:33 Calcium 8.2 mg/dL (8.5-10.1) L 12/24/18 10:43 Magnesium 1.7 mg/dL (1.8-2.4) L 12/23/18 06:23 Total Bilirubin 0.9 mg/dL (0.2-1.0) 12/18/18 13:10 AST 26 U/L (15-37) 12/18/18 13:10 ALT 50 U/L (12-78) 12/18/18 13:10 Alkaline Phosphatase 123 U/L (46-116) H 12/18/18 13:10 Total Protein 8.0 g/dL (6.4-8.2) 12/18/18 13:10 Albumin 4.4 g/dL (3.4-5.0) 12/18/18 13:10 Lipase 91 U/L (73-393) 12/18/18 13:10 Urine Color Yellow (Yellow) 12/18/18 16:45 Urine Clarity Clear 12/18/18 16:45 Urine pH 5.5 (5-8) 12/18/18 16:45 Ur Specific [place] <= 1.005 (1.005-1.025) 12/18/18 16:45 Urine Protein Negative mg/dL (Negative) 12/18/18 16:45 Urine Ketones 40 mg/dL (Negative) H 12/18/18 16:45 Urine Blood Negative (Negative) 12/18/18 16:45 Urine Nitrite Negative (Negative) 12/18/18 16:45 Urine Bilirubin Negative (Negative) 12/18/18 16:45 Urine Urobilinogen 0.2 EU/dL (Up TO 0.2) 12/18/18 16:45 Ur Leukocyte Esterase Negative (Negative) 12/18/18 16:45 Urine Glucose Negative mg/dL (Negative) 12/18/18 16:45
[2018-12-25] MEDS: Enoxaparin 40 MG/0.4 ML SYR SC (17:14)
[2018-12-25] MEDS: Mometasone 220 MCG 14 DOSE INHALER IH (20:11)
[2018-12-25] MEDS: Atorvastatin 10 MG TAB PO (21:55)
[2018-12-26] MEDS: ACETAMINOPHEN 1,000 MG/100 ML BTL 400 MG IVPB ×2 (01:55→09:29)
[2018-12-26] MEDS: Ketorolac 15 MG/ML VIAL IVP ×2 (01:55→09:28)
[2018-12-26] MEDS: IMIPENEM/CILASTATIN 500 MG in Normal Saline 100 ML 200 MG IVPB ×2 (01:57→11:01)
[2018-12-26] MEDS: Normal Saline Flush 10 ML SYR IVP ×2 (01:59→09:27)
[2018-12-26 07:40] VITALS: BP 152/80; PULSE 78; RESP 18; TEMP 36.8; O2SAT 95
[2018-12-26] MEDS: Normal Saline 500 ML 30 ML IV (09:26)
[2018-12-26] MEDS: Pantoprazole 40 MG VIAL IVP (09:27)
[2018-12-26] MEDS: Lisinopril 10 MG TAB PO (09:27)
[2018-12-26] MEDS: Dicyclomine 10 MG CAP 20 MG PO (09:27)
--- NOTE | 2018-12-26 11:29 | DSE_ITS ---
Date of service: 12/26/18 Time of Service: 11:25 DS: Diagnosis Discharge Diagnosis (1) Diverticulitis of large intestine with perforation: Status: Acute Discharge Plan Disposition Patient Disposition: HOME Condition: Improving Discharge Details Chief Complaint: Abd Prob Reason For Visit: DIVERTICULITIS WITH MICROPERFORATION Admit Date/Time: 12/18/18 14:36 Admit Provider: Brenda Perez Attending Provider: Brenda Perez Primary Care Provider: [facility] ED Provider: Stiven Lin Hospital Course Hospital Course: pt improved and no complications. tolerating soft diet. nofever. no cp or sob. no cough. no leg pain or swelling Home Meds and New Rx's Prescriptions: New hydrocodone-acetaminophen 5-325 mg Tablet 1 tab PO Q4H PRN PRNQty: 15 RF: 0 amoxicillin-pot clavulanate [Augmentin] 875-125 mg tablet 1 tab PO BID 5 Days Qty: 10 RF: 0 Continued meloxicam 15 MG tablet 15 mg PO DAILY MDD 1 Qty: 30 RF: 1 tizanidine [Zanaflex] 2 MG capsule 2 mg PO HS Qty: 30 RF: 1 Combivent 1 PUFF aerosol 2 puff TID RF: 0 [id number] [Migraine Formula] 1 EACH tablet 1 tab PRN PRNRF: 0 Flovent HFA 120 PUFF HFA aerosol inhaler 1 puff BID RF: 0 atorvastatin 10 mg Tablet 10 mg PO HS RF: 0 lisinopril 10 MG tablet 10 mg PO DAILY RF: 0 tizanidine 2 MG capsule 2 mg PO .QHS PRN PRNQty: 30 RF: 1 Discontinued ibuprofen 200 MG tablet 800 mg PRN PRNRF: 0 Discharge Instructions Additional Instructions: low fiber diet no lifting over 10#'s finish abx f/u dr ash this week- call for appt. Definition Fiber is the part of fruits, vegetables and grains not digested by your body. A low-fiber diet restricts these foods. As a result, the amount of undigested material passing through your large intestine is limited and stool bulk is lessened. A low-fiber diet may be recommended for a number of conditions or situations. It is sometimes called a restricted-fiber diet. Purpose Your doctor may prescribe a low-fiber diet if: ? You have narrowing of the bowel due to a tumor or an inflammatory disease ? You have had bowel surgery ? You are having treatment, such as radiation, that damages or irritates your digestive tract As your digestive system returns to normal, you usually can slowly add more fiber back into your diet. Diet details A low-fiber diet limits the types of vegetables, fruits and grains that you can eat. Occasionally, your doctor also may want you to limit the amount of milk and milk products in your diet. Milk doesn't contain fiber, but it may contribute to discomfort or diarrhea, especially if you're lactose intolerant. The ability to digest food varies from person to person. Depending on your condition and tolerance, your doctor may recommend a diet that is more or less restricted. If you're eating a low-fiber diet, be sure to read food labels. Foods you might not expect ? such as yogurt, ice cream, cereal and even beverages ? can have added fiber. Look for foods that have no more than 1 gram of fiber in a serving. Foods that are generally allowed on a low-fiber diet include: ? White bread without nuts and seeds ? White rice, plain white pasta, and crackers ? Refined hot cereals, such as Cream of Wheat, or cold cereals with less than 1 gram of fiber per serving ? Pancakes or waffles made from white refined flour ? Most canned or well-cooked vegetables and fruits without skins or seeds ? Fruit and vegetable juice with little or no pulp, fruit-flavored drinks, and flavored hutton ? Tender meat, poultry, fish, eggs and tofu ? Milk and foods made from milk ? such as yogurt, pudding, ice cream, cheeses and sour cream ? if tolerated ? Butter, margarine, oils and salad dressings without seeds You should avoid: ? Whole-wheat or whole-grain breads, cereals and pasta ? Brown or wild rice and other whole grains, such as oats, kasha, barley and quinoa ? Dried fruits and prune juice ? Raw fruit, including those with seeds, skin or membranes, such as berries ? Raw or undercooked vegetables, including corn ? Dried beans, peas and lentils ? Seeds and nuts and foods containing them, including peanut butter and other nut butters ? Coconut ? Popcorn If you're eating a low-fiber diet, a typical menu might look like this. Breakfast 1 glass of milk, if tolerated 1 egg 1 slice of white toast with smooth jelly 1/2 cup canned peaches Snack 1 cup of yogurt if tolerated, without seeds or nuts Lunch 1 to 2 cups of chicken noodle soup Crackers [place] of drained tuna with mayonnaise on white bread Canned applesauce Flavored water or iced tea Snack White toast, bread or crackers 2 slices of cheese or 1/2 cup of cottage cheese, if tolerated Flavored water Dinner 3 ounces of lean meat, poultry or fish 1/2 cup of white rice 1/2 cup of cooked vegetables, such as carrots or green beans White dinner roll with butter Hot tea Prepare all foods so that they're tender. Good cooking methods include simmering, poaching, stewing, steaming and braising. Baking or microwaving in a covered dish is another option. Try to avoid roasting, broiling and grilling ? methods that tend to make foods dry and tough. You may also want to avoid fried foods and spices. Keep in mind that you may have fewer bowel movements and smaller stools while you're following a low-fiber diet. To avoid constipation, you may need to drink extra fluids. Drink plenty of water unless your doctor tells you otherwise. Results Eating a low-fiber diet will limit your bowel movements and help ease diarrhea or other symptoms of abdominal conditions, such as abdominal pain. Once your digestive system has returned to normal, you can slowly reintroduce fiber into your diet. Risks Because a low-fiber diet restricts what you can eat, it can be difficult to meet your nutritional needs. You should use a low-fiber diet only as long as directed by your doctor. If you must continue eating this diet for a longer time, consult a registered dietitian to make sure your nutritional needs are being met. Stand Alone Forms: Nursing Discharge Form Referrals: Brenda Perez MD [ [facility] STAFF PHYSICIAN] - (Please call the office to schedule a follow up appointment for within 1 week of discharge.) Activity:: no lifting over 10#'s Equipment/Supplies:: No Equipment Needed Diet:: low fiber Discharge Orders Discharge Orders: Discharge Order (Routine); Ordered 12/26/18 Ordered By: Tete Lira Exam Narrative Exam Narrative: pt still having LLQ pain wood after eating. This has remained unchanged over the alst 4 days despite abx changes . wbc contines to remain at around 12. pt is tolerating soft diet and pain con be controlled w/ oral pain meds. dc home on augmentin. Const General: cooperative, healthy appearing, comfortable, no acute distress, well developed and well groomed Nutritional Appearance: average body habitus and well nourished Orientation: alert, awake and oriented x3 [facility] Head: normal to inspection, normocephalic and atraumatic Ears: hearing grossly normal bilaterally and external ears normal General nose exam: external nose normal Face and sinus: normal facial exam and sinuses nontender Mouth: oral mucosae normal, lip normal, tongue normal and moist mucous membranes Teeth and gingiva: dentition normal Eyes General: appearance normal, both eyes and all related structures Conjunctivae: conjunctivae normal Sclera: sclerae normal Pupils: PERRL Neck Neck: normal visual inspection and full ROM Chest Chest: normal inspection of the chest Resp Effort & Inspection: normal respiratory effort, able to speak in complete sentences, no cough, no nasal flaring, not tachypneic and no use of accessory muscles Auscultation: clear to auscultation bilaterally, no rales, no rhonchi and no wheezes Cardio Jugular venous pressure: no JVD Rate: regular rate Rhythm: regular rhythm GI Inspection: normal to inspection, no edema and non-distended Palpation: soft, no masses, tender (llq unchanged since thursday. ) and No ascites Auscultation: normal bowel sounds Skin General skin exam: no rashes or lesions noted Trauma: no lacerations or abrasions Neuro General: alert, oriented x3, oriented, gait normal, moves all extremities, no focal motor deficits and CN's II-XI intact bilaterally Cognition: normal cognition Speech: speech normal Gait: normal gait Motor: muscle tone normal throughout Extrem General: normal to inspection, full ROM and no clubbing, cyanosis or edema Psych Appearance: grossly normal and well kempt Mental Status: mental status grossly normal Speech and Movement: speech and movement normal Affect: normal affect DS: Data Vitals/I&O Vitals and I&O: Vital Signs Temperature 36.8 C 12/26/18 07:40 Temperature Source Tympanic 12/26/18 07:40 Pulse 78 12/26/18 07:40 Pulse Rhythm Regular 12/26/18 07:35 Respiratory Rate 18 12/26/18 07:40 Respiratory Effort Non-Labored 12/26/18 07:35 Respiratory Depth Normal 12/26/18 07:35 Respiratory Pattern Normal 12/26/18 07:35 Blood Pressure 152/80 H 12/26/18 07:40 Blood Pressure Position Sitting 12/18/18 12:53 Pulse Oximetry 95 12/26/18 07:40 Oxygen Delivery Method Room Air 12/26/18 07:40 Oxygen Flow Rate 0 12/26/18 07:40 Pain Level 3 12/26/18 07:40 Comment 12/26/18 07:40 Intake & Output 12/25/18 12/25/18 12/26/18 11:59 23:59 11:59 Intake Total 1040 / 1240 200 / 1240 1010 / 1010 Balance 1040 / 1240 200 / 1240 1010 / 1010 Weight 93.9 kg 91.3 kg Intake: IV 400 / 600 200 / 600 710 / 710 Oral 640 / 640 300 / 300 Other: Urine Color Pale Yellow Yellow Urine Appearance Clear Clear Urine Odor None Normal Comment voids in the bathroom Voiding Methods Toilet [facility] Medical History Diverticulitis of large intestine with perforation (Acute) Diverticulosis (Chronic) Asthma Back pain COPD (chronic obstructive pulmonary disease) GERD (gastroesophageal reflux disease) Hypertension Migraine Migraine, chronic, without aura Obesity Polyp of colon 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
[2018-12-26 11:35] VITALS: BP 138/78; PULSE 74; RESP 20; TEMP 36.6; O2SAT 98
== END 2018-12-26 12:52 | disposition home or self-care (01) | DRG 392 ==
LOC: ER 15:27 → MS 15:45
PROVIDERS: Physical Therapy Assistant; Surgery; Admitting Provider Surgery; Emergency Provider Student in an Organized Health Care Education/Training Program; PCP Internal Medicine; Visit Provider Surgery
DX: K57.20 Diverticulitis of large intestine with perforation and abscess without bleeding (principal); R10.32 Left lower quadrant pain; R11.0 Nausea; E87.6 Hypokalemia; I10 Essential (primary) hypertension; J44.9 Chronic obstructive pulmonary disease, unspecified; J45.909 Unspecified asthma, uncomplicated
CPT/HCPCS: 36415; 80048; 80053; 83690; 96361; 96365; 96375; 99223; 99232; 99233; 99238; 99285; J1650; NC; 74022; 74177; 81003; 83605; 83735; 85025; 87324; 99284; J0131; J0743; J0744; J1885; J2405; J3480; J3490

== ENCOUNTER 2019-01-12 00:37 | Outpatient (CLI) | payer BC, SELFPAY ==
--- NOTE | 2019-01-12 08:33 | DI.CT_ITS ---
SYMPTOMS/DIAGNOSIS: F/U FOR COLONOSCOPY ON 12/31/18, K57.20 CT SCAN OF THE ABDOMEN AND PELVIS: CT scan of the abdomen and pelvis was performed following oral and intravenous contrast material. Comparison examination is 12/21/18. There is again seen diverticulosis in the descending and sigmoid colon. Bowel wall thickening is seen in the proximal sigmoid colon with mild pericolonic inflammatory change consistent with acute diverticulitis. Since the prior examination, the air- fluid collection anterior to the sigmoid colon is better circumscribed. There is a small amount of air seen internally. It measures 4.7 cm transverse x 2.9 cm AP x 2.4 cm craniocaudad. It is interposed between the left abdominis rectus muscle and the sigmoid colon. It lies just deep to the anterior abdominal wall. There has also developed a second thickened enhancing wall fluid collection interposed between the dome of the urinary bladder and the distal sigmoid colon. It measures 3.9 cm transverse x 2.6 cm AP x 2.2 cm craniocaudally. This is most suggestive of a second abscess. A third thick-walled enhancing fluid collection is seen in the central abdomen. It measures 3.2 cm transverse x 1.8 cm AP x 2.3 cm craniocaudad. It does not appear to be contiguous with either of the other two abscesses and lies in the mesentery amongst small bowel loops. It lies at the level of the umbilicus. This is most consistent with an abscess. No other fluid collections are seen. No pneumoperitoneum is present. No significant ascites is seen. Scarring or atelectasis is seen in the lung bases. There is diffuse decreased attenuation of the liver consistent with hepatic steatosis. No hepatic mass is seen. The gallbladder, bile ducts, pancreas, spleen and adrenal glands are unchanged and unremarkable. The kidneys, ureters and bladder are grossly unremarkable. Reproductive organs are unremarkable. A normal appendix is present. The abdominal aorta is of normal caliber. No aneurysmal dilatation is seen. No significant abdominal or pelvic adenopathy is appreciated. IMPRESSION: 1. Findings of continued sigmoid diverticulitis. 2. A 4.7 cm encapsulated fluid collection interposed between the anterior abdominal wall and the sigmoid colon in the left lower quadrant consistent with an abscess. 3. Interval development of two enhancing thick-walled fluid collections in the lower abdomen and pelvis, also consistent with abscesses.
[2019-01-12] MEDS: Breeza Beverage 473 ML BTL PO (11:03)
[2019-01-12] MEDS: Omnipaque 350 MG/ML 100 ML BTL IJ (11:03)
[2019-01-12] MEDS: Omnipaque 350 MG/ML 50 ML BTL PO (11:03)
== END 2019-01-12 00:57 ==
PROVIDERS: PCP Internal Medicine; Visit Provider Surgery
DX: K57.30 Diverticulosis of large intestine without perforation or abscess without bleeding (principal); K68.11 Postprocedural retroperitoneal abscess; K76.0 Fatty (change of) liver, not elsewhere classified
CPT/HCPCS: 74177; J3490; Q9967

== ENCOUNTER 2019-07-27 13:17 | Outpatient (CLI) | payer BC, SELFPAY ==
[2019-07-27 13:46] LABS: CREATININE 0.88 mg/dL (0.70-1.30)
--- NOTE | 2019-07-27 15:20 | DI.CT_ITS ---
EXAM: CT ABDOMEN PELVIS W CLINICAL HISTORY: R10.32 LLQ ABDOMINAL PAIN, EVAL FOR DIVERTICULITIS. TECHNIQUE: he examination was carried out according to the usual protocol with intravenous administr ation of 100 cc Omnipaque 350. COMPARISON: CT ABDOMEN PELVIS W from 01/12/2019 FINDINGS: The liver is normal. The gallbladder is normal. There are no stones or ductal dilatation. The pancre as and spleen and adrenals are normal. The kidneys are normal. Comparison to the previous CT of the abdomen and pelvis of 01/12/2019 shows interval partial distal colectomy with anastomotic sutures seen at the rectosigmoid region. There is a small 1.5 x 1.3 x 1.1 cm fluid collection lying along the connor ture ring, this could be a small abscess or bland anastomotic dehiscence and a fluid collection less likely. There is a small amount of inflammatory change present around this short segment of the lar ge bowel anterior to S1 and S2 vertebral bodies. There is no evidence of ileus or bowel obstruction. There is nothing to suggest an acute appendix. There is no evidence of free air or free fluid in th e intra peritoneal space. There is no aortic aneurysm. There is no lymphadenopathy. The bladder is unremarkable. The reproductive organs as visualized are unremarkable. There are small fat containin g bilateral inguinal hernias. IMPRESSION: Questionable colonic carisa anastomotic abscess. Comparison with the previous CT examination shows inte rval partial distal colectomy with anastomotic sutures seen in the rectosigmoid. There is a small 1.5 x 1.3 x 1.1 cm fluid collection lying adjacent to the suture ring. This could represent a small absc ess or bland anastomotic dehiscence. There is a small amount of inflammatory change around the short segment of large bowel anterior to S1-S2 vertebral bodies. There is no evidence of an ileus or bowel obstruction. Note is made of small bilateral fat containing inguinal hernias.
[2019-07-27] MEDS: Omnipaque 350 MG/ML 50 ML BTL PO (15:41)
[2019-07-27] MEDS: Omnipaque 350 MG/ML 100 ML BTL IV (15:42)
--- NOTE | 2019-07-27 16:35 | DI.VRAD_ITS ---
Addendum created by Carlos Wallace MD on 07/27/2019 5:01:55 PM EDT THIS REPORT CONTAINS FINDINGS THAT MAY BE CRITICAL TO PATIENT CARE.: The findings were discussed via telephone conference with THIERRY ROMO at 07/27/2019 5:01 PM EDT. Initial report created on 07/27/2019 4:34:52 PM EDT PROCEDURE INFORMATION: Exam: CT Abdomen And Pelvis With Contrast Exam date and time: 07/27/2019 3:21 PM Clinical history: 59 years old, male; Abdominal pain; Localized; Left lower quadrant (llq); Patient HX: Llq HX of diverticulitis, colon resection April 2018 TECHNIQUE: Imaging protocol: Computed tomography of the abdomen and pelvis with intravenous contrast. Radiation optimization: All CT scans at this facility use at least one of these dose optimization techniques: automated exposure control; mA and/or kV adjustment per patient size (includes targeted exams where dose is matched to clinical indication); or iterative reconstruction. Contrast material: OMNIPAQUE 350; Contrast volume: 100 ml; Contrast route: IV; COMPARISON: CT ABDOMEN PELVIS W 01/12/2019 10:53 AM FINDINGS: Liver: Normal. No mass. Gallbladder and bile ducts: Normal. No calcified stones. No ductal dilation. Pancreas: Normal. No ductal dilation. Spleen: Normal. No splenomegaly. Adrenals: Normal. No mass. Kidneys and ureters: Normal. No hydronephrosis. Stomach and bowel: Comparison to the previous CT abdomen and pelvis study from 01/12/2019 shows interval partial distal colectomy with anastomotic sutures seen in the rectosigmoid region on image 68 of series 4. There is a small 1.5 x 1.3 x 1.1 cm fluid collection lying adjacent to the suture ring on image 68 of series 4 and image 64 of series 6. This could be a small abscess or bland anastomotic dehiscence fluid less likely. There is a small amount of inflammatory change present around this short segment of the large bowel anterior to the S1 and S2 vertebral bodies, seen on images 65 through 71 of series 4 and images 59 through 66 of series 6. No evidence of ileus or bowel obstruction. Appendix: No evidence of appendicitis. Intraperitoneal space: Unremarkable. No free air. No significant fluid collection. Vasculature: Unremarkable. No abdominal aortic aneurysm. Lymph nodes: Unremarkable. No enlarged lymph nodes. Bladder: Unremarkable as visualized. Reproductive: Unremarkable as visualized. Bones/joints: See Stomach And Bowel Finding. Soft tissues: Small bilateral inguinal hernias are present, containing fat only. IMPRESSION: 1. Questionable colonic perianastamotic abscess. Comparison to the previous CT abdomen and pelvis study from 01/12/2019 shows interval partial distal colectomy with anastomotic sutures seen in the rectosigmoid region on image 68 of series 4. There is a small 1.5 x 1.3 x 1.1 cm fluid collection lying adjacent to the suture ring on image 68 of series 4 and image 64 of series 6. This could be a small abscess or bland anastomotic dehiscence fluid less likely. There is a small amount of inflammatory change present around this short segment of the large bowel anterior to the S1 and S2 vertebral bodies, seen on images 65 through 71 of series 4 and images 59 through 66 of series 6. 2. No evidence of ileus or bowel obstruction. 3. Small bilateral inguinal hernias are present, containing fat only. Dictated and Authenticated by: Carlos Wallace MD. Ordering:IVY Ornelas MD
== END 2019-07-27 13:37 ==
PROVIDERS: PCP Internal Medicine; Visit Provider Nurse Practitioner Family
DX: R10.32 Left lower quadrant pain (principal); Z90.49 Acquired absence of other specified parts of digestive tract; Z13.89 Encounter for screening for other disorder; K40.20 Bilateral inguinal hernia, without obstruction or gangrene, not specified as recurrent
CPT/HCPCS: 74177; 82565; J3490; Q9967

== ENCOUNTER 2019-07-27 17:30 | Outpatient (CLI) | payer BC, SELFPAY ==
[2019-07-27 17:54] LABS: Absolute Basophil Count 0.01 k/cumm (0.0-0.2); Absolute Eosinophil Count 0.14 k/cumm (0.0-0.7); Absolute Lymphocyte Count 1.32 k/cumm (1.2-3.4); Absolute Monocyte Count 0.35 k/cumm (0.11-0.7); Absolute Neutrophil Count 5.58 k/cumm (1.2-6.7); Basophils % 0.1; Eosinophils % 1.9; HCT 45.6 % (40.0-50.0); HGB 15.7 g/dL (13.5-17.5); Lymphocytes % 17.8; Mean Corp. HGB Concentration 34.4 g/dL (32.0-36.0); Mean Corpuscular Hemoglobin 34.7 pg (27.0-33.0); Mean Corpuscular Volume 100.9 fL (80-95); Mean Platelet Volume 9.1 fL (8.0-11.0); Monocytes % 4.7; Neutrophils % 75.5; Platelet Count 268 x1000/uL (130-400); RBC 4.52 m/cumm (4.50-6.00); RBC Distribution Width 11.9 % (11.8-14.1)
[2019-07-27 18:30] LABS: BUN 15 mg/dL (7-18); CREATININE 0.87 mg/dL (0.70-1.30); Calcium 9.2 mg/dL (8.5-10.1); Chloride 101 mmol/L (98-107); Glucose 124 mg/dL (70-100); Potassium 4.2 mmol/L (3.5-5.1); Sodium 140 mmol/L (136-145)
== END 2019-07-27 17:50 ==
PROVIDERS: PCP Internal Medicine; Visit Provider Internal Medicine
DX: R10.12 Left upper quadrant pain (principal); R10.32 Left lower quadrant pain
CPT/HCPCS: 80048; 85025

== ENCOUNTER 2019-11-22 10:50 | Outpatient (REF) | payer BC, SELFPAY ==
[2019-11-22 21:49] LABS: HGB 15.3 g/dL (13.5-17.5); Mean Corp. HGB Concentration 34.8 g/dL (32.0-36.0); Mean Corpuscular Hemoglobin 34.2 pg (27.0-33.0); Mean Corpuscular Volume 98.4 fL (80-95); Mean Platelet Volume 9.9 fL (8.0-11.0); Platelet Count 260 x1000/uL (130-400); RBC 4.47 m/cumm (4.50-6.00); RBC Distribution Width 11.8 % (11.8-14.1)
[2019-11-22 21:56] LABS: CREATININE 0.91 mg/dL (0.70-1.30)
== END 2019-11-22 11:10 ==
LOC: NCHCN 10:50
PROVIDERS: PCP Internal Medicine; Visit Provider Nurse Practitioner Family
DX: R10.9 Unspecified abdominal pain (principal)
CPT/HCPCS: 85027; 82565

== ENCOUNTER 2019-11-24 02:12 | Outpatient (CLI) | payer BC, SELFPAY ==
--- NOTE | 2019-11-24 08:35 | DI.US_ITS ---
EXAM: US ABDOMEN CLINICAL HISTORY: ABD PAIN, R10.9, PAIN LOWER LT MID ABDOMEN TECHNIQUE: Ultrasound performed using standard protocol. COMPARISON: CT ABDOMEN PELVIS W from 07/27/2019 FINDINGS: The liver is normal size which shows mild diffusely increased echogenicity, consistent fatty infiltra tion. No focal liver lesions or biliary dilatation is seen. There is a question of a 2 millimeter p olyp along the wall of the gallbladder. No stones or wall thickening is seen. The spleen, kidneys a nd aorta as well as pancreas are unremarkable. No ascites seen. IMPRESSION: No acute abnormality. DATA REPOSITORY:
== END 2019-11-24 02:32 ==
PROVIDERS: PCP Internal Medicine; Visit Provider Nurse Practitioner Family
DX: R10.32 Left lower quadrant pain (principal); K76.0 Fatty (change of) liver, not elsewhere classified
CPT/HCPCS: 76700

== ENCOUNTER 2020-03-23 02:59 | Outpatient (CLI) | payer BC, SELFPAY ==
--- NOTE | 2020-03-23 | DI.CT_ITS ---
EXAM: CT ABDOMEN W CLINICAL HISTORY: DISORDER OF STOMACH AND DUODENUM,K31.89, F/U PREVIOUS CT TECHNIQUE: Imaging Protocol: Axial computed tomography images with coronal and sagittal reformatted images were created and reviewed CONTRAST MATERIAL: Intravenous: Omnipaque 350 Contrast volume:99 cc IV Oral: yes COMPARISON: CT CT ABDOMEN PELVIS W from 07/27/2019 FINDINGS: ABDOMEN: Lung Bases: Normal where visualized. Liver: Normal density. No measurable mass. Gallbladder and biliary tract: No radiodense calculus or dilation. Pancreas: Normal density, no abnormal calcifications or inflammatory process. Spleen: Normal. Kidneys: Normal size, contour and axis. No radiodense stones or obstructive uropathy. No masses seen. Adrenal glands: No masses seen. Abdominal Aorta: Abdominal portion non-dilated. Minimal calcification Lymph nodes: Within normal limits. Stomach and bowel: No abnormal dilatation, wall thickening or inflammation. Small portion of the mireya endix is visualized and appears normal. There is a moderate quantity of stool. Bones: Degenerative disc changes. IMPRESSION: Unremarkable CT scan of the abdomen. RADIATION DOSE DELIVERED: 524.33mGy.cm Total DLP DATA REPOSITORY: All CT scans at this facility are submitted to the National Radiology Data Registry (NRDR) Dose Index Registry (DIR) with the [employer] (ACR). RADIATION OPTIMIZATION: All CT scans at this facility use at least one of these dose optimization te chniques: automated exposure control; mA and/or kV adjustment per patient size (includes targeted exa ms where dose is matched to clinical indication); or iterative reconstruction.
[2020-03-23] MEDS: Omnipaque 350 MG/ML 50 ML BTL PO (07:43)
[2020-03-23] MEDS: Breeza Beverage 473 ML BTL PO (07:43)
[2020-03-23 08:18] LABS: CREATININE 0.88 mg/dL (0.70-1.30)
[2020-03-23] MEDS: Omnipaque 350 MG/ML 100 ML BTL IJ (08:38)
== END 2020-03-23 03:19 ==
PROVIDERS: PCP Internal Medicine; Visit Provider Nurse Practitioner Family
DX: Z13.89 Encounter for screening for other disorder (principal); K31.89 Other diseases of stomach and duodenum
CPT/HCPCS: 74160; 82565; J3490; Q9967

== ENCOUNTER 2020-11-26 21:24 | Outpatient (REF) | payer BC, SELFPAY ==
[2020-11-26 14:46] LABS: Abs Immature Grans 0.01 10^3/uL (0.0-0.06); Absolute Basophil Count 0.04 10^3/uL (0.0-0.2); Absolute Eosinophil Count 0.15 10^3/uL (0.0-0.7); Absolute Lymphocyte Count 1.16 10^3/uL (1.2-3.4); Absolute Monocyte Count 0.39 10^3/uL (0.1-0.8); Absolute Neutrophil Count 3.65 10^3/uL (1.2-6.7); Basophils % 0.7; Eosinophils % 2.8; HCT 46.9 % (40.0-50.0); HGB 16.1 g/dL (13.5-17.5); Immature Grans % 0.2; Lymphocytes % 21.5; MCH 34.4 pg (27.0-33.0); MCHC 34.3 % (32.0-36.0); MCV 100.2 fL (80-95); MPV 10.3 fL (8.0-11.0); Monocytes % 7.2; Neutrophils % 67.6; Nucleated RBC 0 %; Platelet Count 271 10^3/uL (130-400); RBC 4.68 10^6/uL (4.36-5.78); RDW 11.7 % (11.8-14.1); RDW-SD 43.6 fL
[2020-11-26 14:58] LABS: ALT 48 U/L (16-63); AST 24 U/L (15-37); Albumin 4.3 g/dL (3.4-5.0); Alkaline Phosphatase 93 U/L (46-116); BUN 15 mg/dL (7-18); Bilirubin, Total 0.7 mg/dL (0.2-1.0); CREATININE 0.9 mg/dL (0.70-1.30); Calcium 9.3 mg/dL (8.5-10.1); Chloride 103 mmol/L (98-107); Glucose 117 mg/dL (74-106); Potassium 4.7 mmol/L (3.5-5.1); Sodium 139 mmol/L (136-145); Total Protein 7.8 g/dL (6.4-8.2)
== END 2020-11-26 21:25 | disposition home or self-care (01) ==
LOC: NCHCN 21:24
PROVIDERS: PCP Internal Medicine; Visit Provider Internal Medicine
DX: R10.32 Left lower quadrant pain (principal); Z87.19 Personal history of other diseases of the digestive system
CPT/HCPCS: 80053; 85025

== ENCOUNTER 2020-11-29 02:06 | Outpatient (CLI) | payer BC, SELFPAY ==
[2020-11-29] MEDS: Omnipaque 350 MG/ML 100 ML BTL IJ (14:20)
[2020-11-29] MEDS: Normal Saline - Diluent 50 ML VIAL IV (14:20)
--- NOTE | 2020-11-29 14:21 | DI.CT_ITS ---
EXAM: CT ABDOMEN PELVIS W CLINICAL HISTORY: LLQ ABD PAIN, R10.32. TECHNIQUE: Imaging Protocol: Axial computed tomography images with coronal and sagittal reformatted images were created and reviewed CONTRAST MATERIAL: Intravenous: Omnipaque 100cc Oral: None COMPARISON: CT CT ABDOMEN PELVIS W from 07/27/[address] ABDOMEN W from 03/23/2020 FINDINGS: VISUALIZED LUNG BASES: No nodules nor pleural effusions evident. ABDOMEN: There is no ascites. LIVER: There are no obvious focal hepatic lesions evident . GALLBLADDER/BILIARY: No obvious gallbladder pathology. CBD is not dilated. PANCREAS: No evidence of pancreatic mass nor dilatation of the pancreatic duct. SPLEEN: Spleen is not enlarged. No obvious intrasplenic lesions. Splenic and portal veins are paten t. ADRENALS: There are no significant adrenal masses. KIDNEYS:No cysts evident. No solid renal masses. No calculi nor hydronephrosis.. ABDOMINAL AORTA: Abdominal aorta is not enlarged. LYMPH NODES:There is no retroperitineal nor paraaortic adenopathy. ABDOMINAL WALL/GI: No evidence of significant anterior abdominal wall hernia. No bowel obstruction. PELVIS: GI: No evidence of appendicitis.There is an anastomosis at the rectosigmoid again noted. There is le ss streaking around this region than before but there does appear to be a focal narrowing just above the anastomosis, possibly significant. The diameter of the colon above this level is upper normal. LYMPH NODES: There is no intrapelvic nor inguinal adenopathy. REPRODUCTIVE: Prostate size is upper normal. Seminal vesicles unremarkable. URINARY BLADDER: No calculi nor obvious masses evident OSSEOUS: No significant osseous lesions. IMPRESSION: 1. Compared to the prior studies there is again noted and anastomosis at the rectosigmoid region. Th ere is less streaking in this region at this time but there appears to be a possible focal narrowing just above the anastomosis evident on these images. Recommend endoscopy. There is no obvious absces s at this time. RADIATION DOSE DELIVERED: 889.82mGy.cm Total DLP DATA REPOSITORY: All CT scans at this facility are submitted to the National Radiology Data Registry (NRDR) Dose Index Registry (DIR) with the [employer] (ACR). RADIATION OPTIMIZATION: All CT scans at this facility use at least one of these dose optimization te chniques: automated exposure control; mA and/or kV adjustment per patient size (includes targeted exa ms where dose is matched to clinical indication); or iterative reconstruction.
== END 2020-11-29 02:07 ==
LOC: DI 02:07
PROVIDERS: PCP Internal Medicine; Visit Provider Internal Medicine
DX: R10.32 Left lower quadrant pain (principal); K63.89 Other specified diseases of intestine
CPT/HCPCS: 74177; J3490

== ENCOUNTER 2021-11-01 18:31 | Outpatient (REF) | payer BC, SELFPAY ==
[2021-11-01 20:48] LABS: HCT 43.8 % (40.0-50.0); MCH 33.7 pg (27.0-33.0); MCHC 34.2 % (32.0-36.0); MCV 98.4 fL (80-95); MPV 10.3 fL (8.0-11.0); Platelet Count 277 10^3/uL (130-400); RBC 4.45 10^6/uL (4.36-5.78); RDW 11.7 % (11.8-14.1); RDW-SD 42.4 fL; WBC 7.28 10^3/uL (4.4-10.8)
[2021-11-01 21:14] LABS: ALT 56 U/L (16-63); AST 27 U/L (15-37); Albumin 3.9 g/dL (3.4-5.0); Alkaline Phosphatase 98 U/L (46-116); Anion Gap 10.9 mmol/L (3-11); BUN 18 mg/dL (7-18); Bilirubin, Total 0.3 mg/dL (0.2-1.0); CO2 23.1 mmol/L (21.0-32.0); CREATININE 1.1 mg/dL (0.70-1.30); Calcium 8.6 mg/dL (8.5-10.1); Chloride 102 mmol/L (98-107); Cholesterol 236 mg/dL (<200); Glucose 154 mg/dL (74-106); HDL Cholesterol 31 mg/dL (40-60); Potassium 4.4 mmol/L (3.5-5.1); Sodium 136 mmol/L (136-145); Total Protein 7.1 g/dL (6.4-8.2); Triglyceride 606 mg/dL (<150)
[2021-11-01 21:27] LABS: LDL CHOLESTEROL 136 mg/dL (<100)
[2021-11-04 09:45] LABS: PSA, Screening 0.5 ng/mL (0.0-4.5)
== END 2021-11-01 18:32 | disposition home or self-care (01) ==
LOC: NCHCN 18:31
PROVIDERS: PCP Internal Medicine; Visit Provider Nurse Practitioner Family
DX: R10.32 Left lower quadrant pain (principal); I10 Essential (primary) hypertension; Z12.5 Encounter for screening for malignant neoplasm of prostate
CPT/HCPCS: 80053; 80061; 83721; 84153; 85027

== ENCOUNTER → 2022-01-10 13:00 | Outpatient (CLI) | payer BC, SELFPAY ==
[2022-01-10] MEDS: Breeza Beverage 473 ML BTL PO (12:12)
[2022-01-10 12:51] LABS: ALT 45 U/L (16-63); AST 18 U/L (15-37); Alkaline Phosphatase 97 U/L (46-116); Anion Gap 6.5 mmol/L (3-11); BUN 13 mg/dL (7-18); Bilirubin, Total 0.8 mg/dL (0.2-1.0); CO2 27.5 mmol/L (21.0-32.0); CREATININE 0.8 mg/dL (0.70-1.30); Calcium 8.8 mg/dL (8.5-10.1); Chloride 103 mmol/L (98-107); Glucose 103 mg/dL (74-106); Sodium 137 mmol/L (136-145); Total Protein 7.2 g/dL (6.4-8.2)
[2022-01-10 12:53] LABS: Abs Immature Grans 0.02 10^3/uL (0.0-0.06); Absolute Basophil Count 0.03 10^3/uL (0.0-0.2); Absolute Eosinophil Count 0.13 10^3/uL (0.0-0.7); Absolute Lymphocyte Count 1.24 10^3/uL (1.2-3.4); Absolute Monocyte Count 0.45 10^3/uL (0.1-0.8); Absolute Neutrophil Count 4.13 10^3/uL (1.2-6.7); Basophils % 0.5; Eosinophils % 2.2; HCT 42.7 % (40.0-50.0); HGB 14.5 g/dL (13.5-17.5); Immature Grans % 0.3; Lymphocytes % 20.7; MCH 33.5 pg (27.0-33.0); MCV 98.6 fL (80-95); Monocytes % 7.5; Neutrophils % 68.8; Nucleated RBC 0 %; Platelet Count 213 10^3/uL (130-400); RBC 4.33 10^6/uL (4.36-5.78); RDW-SD 43.9 fL
[2022-01-10] MEDS: Omnipaque 350 MG/ML 100 ML BTL IJ (13:52)
--- NOTE | 2022-01-10 13:53 | DI.CT_ITS ---
Exam(s) CT ABDOMEN PELVIS W EXAM: CT ABDOMEN PELVIS W CLINICAL HISTORY: ABD PAIN LLQ R10.32 HX DIVERTICULITIS. TECHNIQUE: Imaging Protocol: Axial computed tomography images with coronal and sagittal reformatted images were created and reviewed CONTRAST MATERIAL: Intravenous: Omnipaque 100cc Oral: Yes. Oral contrast was also administered for bowel opacification. COMPARISON: CT CT ABDOMEN PELVIS W from 11/12/2021 FINDINGS: VISUALIZED LUNG BASES: No nodules nor pleural effusions evident. ABDOMEN: There is no ascites. Mild haziness in the central mesentery is again noted. No prominent lymphadeno lupe evident. No thrombosis of the mesenteric vessels evident LIVER: There are no focal hepatic lesions evident . GALLBLADDER/BILIARY: No obvious gallbladder pathology. CBD is not dilated. PANCREAS: No evidence of pancreatic mass nor dilatation of the pancreatic duct. SPLEEN: Spleen is not enlarged. No obvious intrasplenic lesions. Splenic and portal veins are paten t. ADRENALS: There are no significant adrenal masses. KIDNEYS:No cysts evident. No solid renal masses. No calculi nor hydronephrosis.. ABDOMINAL AORTA: Abdominal aorta is not enlarged. LYMPH NODES:There is no retroperitoneal nor paraaortic adenopathy. ABDOMINAL WALL: No evidence of significant anterior abdominal wall nor inguinal hernia. GI: There is no evidence of bowel obstruction, free air, nor abscess. PELVIS: GI: No evidence of appendicitis.Again noted is evidence of partial sigmoid resection with end-to-end anastomosis and no evidence of leak nor fluid collection at this level. No bowel obstruction at this level. LYMPH NODES: There is no intrapelvic nor inguinal adenopathy. REPRODUCTIVE: Prostate size normal. Seminal vesicles unremarkable. URINARY BLADDER: No calculi nor obvious masses evident OSSEOUS: No significant osseous lesions. IMPRESSION: 1. Compared to the prior CT scan of 11/12/2021 there is again noted evidence of partial sigmoid resec tion. There is no obstruction at this level and no abscess. No free air. No diverticulitis. No ap pendicitis. 2. There is mild streaking in the central mesentery again noted. There are few small benign-appearin g lymph nodes in the mesentery but no gross lymphadenopathy. Also no splenomegaly. RADIATION DOSE DELIVERED: 865.05mGy.cm Total DLP DATA REPOSITORY: All CT scans at this facility are submitted to the National Radiology Data Registry (NRDR) Dose Index Registry (DIR) with the [employer] (ACR). RADIATION OPTIMIZATION: All CT scans at this facility use at least one of these dose optimization te chniques: automated exposure control; mA and/or kV adjustment per patient size (includes targeted exa ms where dose is matched to clinical indication); or iterative reconstruction.
== END ==
PROVIDERS: PCP Internal Medicine; Visit Provider Nurse Practitioner Family
DX: R10.32 Left lower quadrant pain (principal); K57.30 Diverticulosis of large intestine without perforation or abscess without bleeding; K63.89 Other specified diseases of intestine; Z90.49 Acquired absence of other specified parts of digestive tract
CPT/HCPCS: 80053; 74177; 85025; J3490

== ENCOUNTER 2022-06-24 17:25 | Outpatient (REF) | payer BC, SELFPAY ==
[2022-06-24 14:53] LABS: Calculated LDL 69 mg/dL (<100); Cholesterol 133 mg/dL (<200); HDL Cholesterol 43 mg/dL (40-60); Triglyceride 107 mg/dL (<150)
== END 2022-06-24 17:26 | disposition home or self-care (01) ==
LOC: NCHCN 17:25
PROVIDERS: PCP Internal Medicine; Visit Provider Nurse Practitioner Family
DX: K76.0 Fatty (change of) liver, not elsewhere classified (principal)
CPT/HCPCS: 80061

== ENCOUNTER 2023-02-06 00:29 | Outpatient (CLI) | payer BC, SELFPAY ==
--- OUTSIDE RECORDS SUMMARY | 2023-02-06 00:34 | XMS_ITS ---
Author Name AbidaFred chris Address [address], [place] [id number] Organization [facility] Address [address], [place] [id number] Care Team Providers Care Enzyme Chemist Name Role Phone Fred Tai Unavailable [phone] PROBLEMS Type Condition ICD9-CM Code RMN08-EZ Code Onset Dates Condition Status SNOMED Code Problem Other chronic pain G89.29 Active [id number] ALLERGIES Substance Reaction Event Type Date Status sulfa rash, SOB Drug Allergy Jan, Active ENCOUNTERS Encounter Location Date Diagnosis [facility] [address] [facility] [address] [place] [phone] February, Right lower quadrant pain R10.31 and Left lower quadrant pain R10.32 [facility] [address] [facility] [address] [place] [id number] Jan, Lower abdominal pain R10.30 [facility] [address] [facility] [address] [place], [place] [phone] Dec, [facility] [address] [facility] [address] [place], [place] [id number] Dec, Right lower quadrant pain R10.31 and Left lower quadrant pain R10.32 [facility] [address] [facility] [address] [place], [place] [id number] Dec, [facility] [address] [facility] [address] [place] [phone] Jan, Cough 786.2 and Pharyngitis 462 IMMUNIZATIONS No Known Immunizations SOCIAL HISTORY Never Assessed REASON FOR REFERRAL FUNCTIONAL STATUS PLAN OF CARE VITAL SIGNS Height 5 ft 6 in in 2022-02-04 Height 5 ft 6 in in 2021-12-24 Height 5 ft 6 in in 2014-01-27 Weight 192 lb 8 oz lbs 2021-12-24 Weight 180 lbs 2014-01-27 Temperature 97.8 degrees Fahrenheit Temperature 97. degrees Fahrenheit 2021-12-04 2 Heart Rate 66 /min 2022-02-04 Heart Rate 67 /min 2021-12-24 Heart Rate 79 /min 2014-01-27 Oximetry 98 2022-02-04 Oximetry 98 2021-12-24 Respiratory Rate 20 /min 2022-02-04 Respiratory Rate 20 /min 2021-12-24 Respiratory Rate 16 /min 2014-01-27 BMI 31.07 kg/m2 2021-12-24 BMI 29.05 kg/m2 2014-01-27 Blood pressure systolic 134 mm Hg Blood pressure diastolic 89 mm Hg 2022-02 MEDICATIONS Medication Instructions Dosage Frequency Start Date End Date Duration Status Atorvastatin Calcium 40 MG Orally Once a day 1 tablet 24h 30 day(s) Active Tylenol 325 MG Orally every 6 hrs prn 1 tablet as needed Active Flovent HFA 110 MCG/ACT Inhalation Twice a day prn 1 puff Active Omeprazole 20 MG Orally Once a day 1 capsule 30 minutes before morning meal 24h 30 day(s) Active Combivent 18-103 MCG/ACT Inhalation Four times a day prn 2 puffs Active Meclizine HCl 25 MG Orally Once a day 1 tablet as needed 24h 30 day(s) Active PROCEDURES Procedure Date Ordered Result Body Site US GUIDANCE FOR NEEDLE PLACEMENT January 06, 2022 DIAGNOSTIC FLEXIBLE LARYNGOSCOPY January 27, 2014 TAP BLOCK UNIL BY INJECTION January 06, 2022 RESULTS No Results REASON FOR VISIT [facility] f/U Transverse Abdominal Injs, [facility]- bilateral transversus abdominis plane blocks under ultrasound, no auth req'd // Procedure , [facility]-Inguinal pain right side, Pain referral/please advise, ENT 1M[facility] F/U-[place] is in hospital, cough productive of yellow sputum, mild sore throat Insurance Providers Health Insurance Type Health Plan Insurance Address Health Plan Insurance Phone Health Plan Insurance Name Health Plan Coverage Dates Member ID Patient Relationship to Subscriber Patient Address Patient Phone Patient Name Patient Date of Subscriber ID Subscriber Name Subscriber Date of Group No [place] [address] [place] [address] [place] self Berny [place] [id number] [place] [address] [place] [address] [place] Berny [place] [id number] [place] [address] [place] [address] [place] Berny [place] [id number]
--- NOTE | 2023-02-06 08:00 | DI.RAD_ITS ---
Exam(s) XR PELVIS AP EXAM: XR PELVIS AP CLINICAL HISTORY: LT SCIATICA, PAIN. TECHNIQUE: 2D digital imaging was performed. COMPARISON: No exams were available for comparison FINDINGS: Single AP view. No evidence of pelvic nor hip fracture. No degenerative changes in the hips. SI joints unremarkable . Bone density normal. No osseous lesions. IMPRESSION: No significant osseous findings. DATA REPOSITORY: RADIATION DOSE DELIVERED:
--- NOTE | 2023-02-06 08:00 | DI.RAD_ITS ---
Exam(s) XR LUMBAR SPINE COMPLETE EXAM: XR LUMBAR SPINE COMPLETE CLINICAL HISTORY: CHRONIC BACK PAIN, M54.89, LT SCIATICA,M54.32. TECHNIQUE: 2D digital imaging was performed. COMPARISON: CT CT ABDOMEN PELVIS W from 01/10/2022 FINDINGS: Five views: No evidence fracture. Very mild degenerative anterolisthesis L4 upon L5 due to an element of facet a rthropathy at this level. There are no pars defects. There is mild disc space narrowing at this lev el as well as at L5-S1 level. Also mild disc space narrowing and anterior osseous lipping L1-2 level . No osseous lesions. No scoliosis. Sacroiliac joints appear unremarkable. IMPRESSION: Mild multilevel disc space narrowing. Facet arthropathy at L4-5 level mild anterolisthesis L4 upon L 5. If clinically indicated flexion and extension lateral views can be performed to determine the shell e amount of slippage of L4 upon L5 during everyday activities. DATA REPOSITORY: RADIATION DOSE DELIVERED:
== END 2023-02-06 00:49 ==
LOC: DI 00:29
PROVIDERS: PCP Internal Medicine; Visit Provider Nurse Practitioner Family
DX: M54.89 Other dorsalgia (principal); M54.32 Sciatica, left side
CPT/HCPCS: 72110; 72170

== ENCOUNTER 2023-06-25 21:46 | Outpatient (REF) | payer MEDICARE, SELFPAY ==
[2023-06-25 15:36] LABS: HCT 46.8 % (40.0-50.0); HGB 15.9 g/dL (13.5-17.5); MCH 34.4 pg (27.0-33.0); MCV 101 fL (80-95); MPV 10.4 fL (8.0-11.0); Platelet Count 233 10^3/uL (130-400); RBC 4.62 10^6/uL (4.36-5.78); RDW 11.9 % (11.8-14.1); RDW-SD 44.5 fL; WBC 5.82 10^3/uL (4.4-10.8)
[2023-06-25 16:27] LABS: ALT 58 U/L (16-63); AST 28 U/L (15-37); Albumin 4.2 g/dL (3.4-5.0); Alkaline Phosphatase 127 U/L (46-116); Anion Gap 13.3 mmol/L (3-11); BUN 14 mg/dL (7-18); Bilirubin, Total 0.8 mg/dL (0.2-1.0); CO2 22.7 mmol/L (21.0-32.0); CREATININE 0.9 mg/dL (0.70-1.30); Calcium 9.3 mg/dL (8.5-10.1); Calculated LDL 73 mg/dL (<100); Chloride 99 mmol/L (98-107); Cholesterol 144 mg/dL (<200); Estimated GFR 94.78 (mL/min/1.73m2); Glucose 153 mg/dL (74-106); HDL Cholesterol 45 mg/dL (40-60); Potassium 4.7 mmol/L (3.5-5.1); Sodium 135 mmol/L (136-145); Total Protein 7.6 g/dL (6.4-8.2); Triglyceride 131 mg/dL (<150)
[2023-06-25 23:01] LABS: PSA, Screening 0.6 ng/mL (<=4.5)
== END 2023-06-25 21:47 | disposition home or self-care (01) ==
LOC: NCHCN 21:46
PROVIDERS: PCP Internal Medicine; Visit Provider Nurse Practitioner Family
DX: I10 Essential (primary) hypertension (principal); Z12.5 Encounter for screening for malignant neoplasm of prostate
CPT/HCPCS: 80053; 80061; 84153; 85027

== ENCOUNTER 2023-08-04 14:15 | Outpatient (REF) | payer MEDICARE, SELFPAY ==
[2023-08-04 15:02] LABS: Hemoglobin A1C 7.6 % (<5.7)
[2023-08-04 15:30] LABS: Folate 5.4 ng/mL (8.6-20.0); Vitamin B12 594 pg/mL (193-986)
== END 2023-08-04 14:16 | disposition home or self-care (01) ==
LOC: NCHCN 14:15
PROVIDERS: PCP Internal Medicine; Visit Provider Nurse Practitioner Family
DX: R73.09 Other abnormal glucose (principal); D75.89 Other specified diseases of blood and blood-forming organs
CPT/HCPCS: 82607; 82746; 83036

== ENCOUNTER 2023-11-06 15:29 | Outpatient (REF) | payer MEDICARE, SELFPAY ==
[2023-11-06 14:34] LABS: HCT 45.5 % (40.0-50.0); HGB 15.5 g/dL (13.5-17.5); MCH 33.5 pg (27.0-33.0); MCHC 34.1 % (32.0-36.0); MCV 99 fL (80-95); MPV 10.1 fL (8.0-11.0); Platelet Count 220 10^3/uL (130-400); RBC 4.62 10^6/uL (4.36-5.78); RDW 11.9 % (11.8-14.1); RDW-SD 43.1 fL; WBC 6.14 10^3/uL (4.4-10.8)
[2023-11-06 15:04] LABS: Hemoglobin A1C 8.6 % (<5.7)
[2023-11-06 15:11] LABS: Folate 19.2 ng/mL (8.6-20.0)
== END 2023-11-06 15:30 | disposition home or self-care (01) ==
LOC: NCHCN 15:29
PROVIDERS: PCP Internal Medicine; Visit Provider Nurse Practitioner Family
DX: E11.9 Type 2 diabetes mellitus without complications (principal); E53.8 Deficiency of other specified B group vitamins
CPT/HCPCS: 85027; 82746; 83036

== ENCOUNTER → 2023-11-19 03:26 | Outpatient (CLI) | payer MEDICARE, SELFPAY ==
[2023-11-19] MEDS: Barium Sulfate 2% W/V-Berry Smoothie 450 ML BTL PO ×2 (12:15→12:16)
[2023-11-19 12:39] LABS: CREATININE 0.9 mg/dL (0.70-1.30); Estimated GFR 94.78 (mL/min/1.73m2)
[2023-11-19] MEDS: Normal Saline - Diluent 50 ML VIAL IJ (14:21)
[2023-11-19] MEDS: Omnipaque 350 MG/ML 100 ML BTL IJ (14:22)
--- NOTE | 2023-11-19 14:23 | DI.CT_ITS ---
Exam(s) CT ABDOMEN PELVIS W EXAM: CT ABDOMEN PELVIS W CLINICAL HISTORY: R10.9 abd pain, new onset of A1C elevation. TECHNIQUE: Imaging Protocol: Axial computed tomography images with coronal and sagittal reformatted images were created and reviewed CONTRAST MATERIAL: Intravenous: Omnipaque 350 Contrast volume:100 ml Oral: yes COMPARISON: CT CT ABDOMEN PELVIS W from 01/10/2022 FINDINGS: ABDOMEN and PELVIS: Lung Bases: No acute findings. Liver: Moderate hepatic steatosis. No measurable mass. Gallbladder and biliary tract: No radiodense calculus or dilation. Pancreas: Mild atrophy.. No abnormal calcifications or inflammatory process. No evidence of mass. Spleen: Normal. Kidneys: Normal size, contour and axis. No radiodense stones. No obstructive uropathy. No suspicious masses seen. Adrenal glands: No masses seen. Vasculature: Abdominal aorta non-dilated. Soft tissues: Unremarkable. Bladder: No gross wall thickening. No calculi.No focal mass. Bowel: Sigmoid anastomosis. No obstruction. No bowel wall thickening. Appendix normal. Peritoneal cavity: No ascites. No focal collection.. Stable appearance of mild haziness in the cent ral mesentery with small mesenteric lymph nodes.. Bones: Unremarkable for age. Reproductive organs: Within normal limits. Lymph nodes: Unremarkable. IMPRESSION:: No acute abnormality in the abdomen and pelvis. RADIATION DOSE DELIVERED: 1,107.91mGy.cm Total DLP DATA REPOSITORY: All CT scans at this facility are submitted to the National Radiology Data Registry (NRDR) Dose Index Registry (DIR) with the [employer] (ACR). RADIATION OPTIMIZATION: All CT scans at this facility use at least one of these dose optimization te chniques: automated exposure control; mA and/or kV adjustment per patient size (includes targeted exa ms where dose is matched to clinical indication); or iterative reconstruction.
== END ==
PROVIDERS: PCP Internal Medicine; Visit Provider Nurse Practitioner Family
DX: R10.9 Unspecified abdominal pain (principal)
CPT/HCPCS: 74177; 82565; J3490

== ENCOUNTER 2024-05-18 12:29 | Outpatient (REF) | payer MEDICARE, SELFPAY ==
[2024-05-19 20:33] LABS: COMMENT (LAB VIEW ONLY) 29.92 mg/dL; Microalb ug/mg Crea 7.7 ug/mg Cr
== END 2024-05-18 12:30 | disposition home or self-care (01) ==
LOC: NCHCN 12:29
PROVIDERS: PCP Nurse Practitioner Family; Visit Provider Nurse Practitioner Family
DX: E11.9 Type 2 diabetes mellitus without complications (principal)
CPT/HCPCS: 82043; 82570

== ENCOUNTER 2024-08-18 21:47 | Outpatient (REF) | payer MEDICARE, SELFPAY ==
[2024-08-18 21:30] LABS: HCT 45.8 % (40.0-50.0); HGB 15.6 g/dL (13.5-17.5); MCH 34.7 pg (27.0-33.0); MCHC 34.1 % (32.0-36.0); MCV 102 fL (80-95); MPV 10.2 fL (8.0-11.0); Platelet Count 266 10^3/uL (130-400); RDW 11.7 % (11.8-14.1); RDW-SD 44.2 fL; WBC 7.11 10^3/uL (4.4-10.8)
[2024-08-18 21:55] LABS: ALT 50 U/L (16-63); Albumin 4.2 g/dL (3.4-5.0); Alkaline Phosphatase 111 U/L (46-116); Anion Gap 8.2 mmol/L (3-11); BUN 14 mg/dL (7-18); Bilirubin, Total 0.78 mg/dL (0.2-1.0); CO2 28.8 mmol/L (21.0-32.0); CREATININE 0.7 mg/dL (0.70-1.30); Chloride 105 mmol/L (98-107); Cholesterol 134 mg/dL (<200); Estimated GFR 101.62 (mL/min/1.73m2); Folate 14.5 ng/mL (8.6-20.0); Glucose 143 mg/dL (74-106); HDL Cholesterol 41 mg/dL (40-60); Potassium 4.6 mmol/L (3.5-5.1); Sodium 142 mmol/L (136-145); Total Protein 7.7 g/dL (6.4-8.2); Triglyceride 421 mg/dL (<150)
[2024-08-18 22:50] LABS: LDL CHOLESTEROL 65 mg/dL (<100)
[2024-08-18 23:23] LABS: AST 27 U/L (15-37)
== END 2024-08-18 21:48 | disposition home or self-care (01) ==
LOC: NCHCN 21:47
PROVIDERS: PCP Nurse Practitioner Family; Visit Provider Nurse Practitioner Family
DX: E53.8 Deficiency of other specified B group vitamins (principal); I10 Essential (primary) hypertension; E78.5 Hyperlipidemia, unspecified
CPT/HCPCS: 80053; 80061; 83721; 85027; 82746

== ENCOUNTER 2024-09-14 01:35 | Outpatient (CLI) | payer MEDICARE, SELFPAY ==
--- NOTE | 2024-09-14 | DI.MRI_ITS ---
Exam(s) MR THORACIC SPINE WO EXAM: MR THORACIC SPINE WO CLINICAL HISTORY: PAIN THORACIC SPINE M54.6 TECHNIQUE: Multiplanar multisequence MRI of the thoracic spine was performed without intravenous con trast. COMPARISON: MR MRI - THORACIC SPINE WO CONT from 09/17/2016 FINDINGS: OSSEOUS: There are no that thoracic vertebral fractures. No listhesis. There is a small Schmorl's no de invagination in the superior endplate T12 noted, not associated with bone marrow edema. There are no ominous osseous lesions in the thoracic vertebrae. THORACIC SPINAL CORD: There is no abnormal signal in the cervical spinal cord and no evidence of foca l cord atrophy nor focal cord swelling. There is no evidence of syringomyelia nor significant spinal cord dysraphism. There is no evidence of mass at the conus medullaris. The position of the conus me dullaris is at T12-L1 level. SIGNIFICANT INDIVIDUAL LEVEL FINDINGS: At T7-8 level there is a small right paracentral disc protrusion which extends posteriorly 3 mm and i ndents the anterior right side of the thecal sac and spinal cord at this level. There is no abnormal signal in the cord at this level. At T T9-T10 level there is a small posterolateral right disc protrusion which extends posteriorly 2 m m and which slightly indents the anterior right side of the thecal sac but not the spinal cord. Cent ral canal dimensions of the normal limits. There is no foraminal stenosis at this level nor elsewher e in the thoracic spinal column.. PARASPINAL TISSUES: No significant masses nor fluid collections evident. IMPRESSION: 1. There are small right-sided disc protrusions at T7-8 and T9-10 levels, as described above. 2. No evidence of thoracic vertebral fractures, listhesis, nor abnormal marrow signal in the thoracic vertebrae. DATA REPOSITORY:
--- NOTE | 2024-09-14 | DI.MRI_ITS ---
Exam(s) MR LUMBAR SPINE WO EXAM: MR LUMBAR SPINE WO CLINICAL HISTORY: INTERVERTEBRAL DISC DEGENERATION LUMBAR REGION M51.369. TECHNIQUE: Multiplanar multisequence MRI of the Lumbar spine was performed. COMPARISON: CR XR LUMBAR SPINE COMPLETE from 02/06/2023 FINDINGS: Conus medullaris is at normal level. There is no evidence of conus mass nor subjacent clumping of in trathecal nerve roots to suggest arachnoiditis. The distal thecal sac appears unremarkable.Small Tar drake intra sacral cysts are noted the S2 level. Bones:There are no fractures nor ominous osseous lesions in the lumbar vertebral bodies and visualize d sacrum. With respect to the individual levels... T12-L1: Normal disc height and signal. There is mild asymmetric left-sided annular bulging at this l evel without a prominent disc herniation nor central canal stenosis. No foraminal stenosis. Facet j oints unremarkable. L1-2: There is anterior osseous lipping at this level. Normal disc height. No disc herniation nor c entral canal stenosis nor foraminal stenosis. Facets unremarkable. L2-3: Mild anterior osseous lipping with normal disc height and no disc herniation or central canal s tenosis. No foraminal stenosis. No facet arthropathy. L3-4: Normal disc height and signal. No disc herniation or central canal stenosis. No foraminal bailee nosis. Facet joints unremarkable. L4-5: This level exhibits minimal disc space narrowing, and there is very mild anterolisthesis of L4 upon L5 related to advanced bilateral facet arthropathy. There is approximately 2 mm anterior slippa ge of L4 upon L5. No focal disc herniation there is mild central spinal canal stenosis. No signific ant foraminal stenosis. L5-S1: This level exhibits mild disc space narrowing. Posteriorly there is a small central subligame ntous disc disc protrusion which contacts the anterior thecal sac. There is no central canal stenosi s nor narrowing of the exiting neural foramina on either side. Facet joints unremarkable. Soft tissues: paraspinal soft tissues appear unremarkable. IMPRESSION: 1. The L4-5 level there is mild degenerative anterolisthesis of L4 upon L5 with approximately 2 mm an terior slippage of L4 upon L5, this related to advanced degenerative changes in both facet joints. T here are no pars defects. There is relatively preserved disc height at this level. There is mild ce ntral canal stenosis at this level. There is no significant foraminal stenosis on either side at thi s level. 2. At L5-S1 level there is a small central subligamentous disc bulge, not associated with spinal mamta l stenosis nor foraminal stenosis. There is no significant facet arthropathy evident at this level. 3. No abnormal marrow signal. DATA REPOSITORY:
== END 2024-09-14 01:55 ==
LOC: DI 01:36
PROVIDERS: PCP Nurse Practitioner Family; Visit Provider Nurse Practitioner Family
DX: M43.16 Spondylolisthesis, lumbar region (principal); M51.24 Other intervertebral disc displacement, thoracic region
CPT/HCPCS: 72146; 72148

== ENCOUNTER 2024-11-24 12:56 | Outpatient (REF) | payer MEDICARE, SELFPAY ==
[2024-11-24 13:57] LABS: Bilirubin Negative (Negative); Blood Negative (Negative); Clarity Clear (Clear); Glucose Negative (Negative); Ketones Negative (Negative); Leukocyte Esterase Negative (Negative); Nitrite Negative (Negative); Urobilinogen 0.2 mg/dL (Up to 0.2); pH 5.5 (5-8)
== END 2024-11-24 12:57 | disposition home or self-care (01) ==
LOC: NCHCN 12:56
PROVIDERS: PCP Nurse Practitioner Family; Visit Provider Nurse Practitioner Family
DX: R31.29 Other microscopic hematuria (principal)
CPT/HCPCS: 81003

== ENCOUNTER 2025-06-27 16:12 | Outpatient (REF) | payer MEDICARE, SELFPAY ==
[2025-06-27 17:06] LABS: COMMENT (LAB VIEW ONLY) 122.52 mg/dL; Microalb ug/mg Crea 5.5 ug/mg Cr
== END 2025-06-27 16:13 | disposition home or self-care (01) ==
LOC: NCHCN 16:12
PROVIDERS: PCP Nurse Practitioner Family; Visit Provider Nurse Practitioner Family
DX: E11.9 Type 2 diabetes mellitus without complications (principal)
CPT/HCPCS: 82043; 82570

== ENCOUNTER 2025-07-06 04:21 | Outpatient (CLI) | payer MEDICARE, SELFPAY ==
--- NOTE | 2025-07-06 | DI.US_ITS ---
Exam(s) US ABDOMEN LIMITED EXAM: US ABDOMEN LIMITED CLINICAL HISTORY: FATTY LIVER K76.0 STEATOTIC LIVER DISEASE TECHNIQUE: Ultrasound abdomen performed using standard protocol. COMPARISON: US US ABDOMEN from 02/19/[address] ABDOMEN PELVIS W from 11/19/2023 FINDINGS: There is no ascites evident. LIVER: There is hyperechoic indicating steatosis. There no discrete focal hepatic lesions identified. No obvious dilated intrahepatic ducts. GALLBLADDER/BILIARY: There few shadowing gallstones noted which were not evident on prior CT scan listed above nor on ultrasound examination February 2021. The common hepatic duct isnot dilated, measuring 6mm at the level of juan hepatis. PANCREAS: There is no evidence of pancreatic mass nor dilatation of the pancreatic duct. RIGHT KIDNEY:Small benign 6 mm cyst noted. Does not require further workup. No solid renal masses no calculi nor hydronephrosis. IMPRESSION: 1. Cholelithiasis. There are few shadowing gallstones. No evidence of acute cholecystitis. No significant dilatation of biliary tree. 2. Hepatic steatosis noted. Liver size is upper normal. There are no discrete focal hepatic lesions. 3. There is no ascites. DATA REPOSITORY:
== END 2025-07-06 04:41 ==
PROVIDERS: PCP Nurse Practitioner Family; Visit Provider Nurse Practitioner Family
DX: K76.0 Fatty (change of) liver, not elsewhere classified (principal); K80.80 Other cholelithiasis without obstruction
CPT/HCPCS: 76705

== ENCOUNTER 2025-10-03 12:54 | Outpatient (REF) | payer MEDICARE, SELFPAY ==
[2025-10-03 15:14] LABS: Abs Immature Grans 0.01 10^3/uL (0.0-0.06); HCT 44.0 % (40.0-50.0); HGB 15.5 g/dL (13.5-17.5); Immature Grans % 0.2 %; MCH 34.5 pg (27.0-33.0); MCHC 35.2 % (32.0-36.0); MCV 98 fL (80-95); MPV 10.0 fL (8.0-11.0); Platelet Count 250 10^3/uL (130-400); RBC 4.49 10^6/uL (4.36-5.78); RDW 11.9 % (11.8-14.1); RDW-SD 43.0 fL; WBC 6.26 10^3/uL (4.4-10.8)
[2025-10-03 15:54] LABS: ALT 45 U/L (10-49); AST 25 U/L (<34); Albumin 4.6 g/dL (3.2-5.0); Alkaline Phosphatase 123 U/L (46-116); Anion Gap 11.1 mmol/L (3-11); BUN 15 mg/dL (9-23); Bilirubin, Total 0.7 mg/dL (0.2-1.2); CO2 23.9 mmol/L (20.0-31.0); Calcium 8.9 mg/dL (8.3-10.6); Chloride 105 mmol/L (98-107); Cholesterol 136 mg/dL (<200); Glucose 159 mg/dL (74-106); HDL Cholesterol 38 mg/dL (>or=40); Potassium 4.8 mmol/L (3.5-5.1); Sodium 140 mmol/L (136-145); Total Protein 7.0 g/dL (5.7-8.2)
[2025-10-03 16:02] LABS: Folate > 24.0 ng/mL (>5.38)
[2025-10-03 23:37] LABS: PSA, Screening 0.8 ng/mL (<=4.5)
== END 2025-10-03 12:55 | disposition home or self-care (01) ==
LOC: NCHCN 12:54
PROVIDERS: PCP Nurse Practitioner Family; Visit Provider Nurse Practitioner Family
DX: I10 Essential (primary) hypertension (principal); E53.8 Deficiency of other specified B group vitamins; E78.5 Hyperlipidemia, unspecified; Z12.5 Encounter for screening for malignant neoplasm of prostate
CPT/HCPCS: 80053; 80061; 84153; 82746; 85025